=== PATIENT | female | born 1945 | race Two or more races ===

== ENCOUNTER 2016-04-07 23:47 | Inpatient (IN) | payer MEDICARE, MEDICAID ==
[~2016-04-07] VITALS: Ht 149.9 cm; Wt 65.1 kg
[~2016-04-07 23:47] MED LIST: FUROSEMIDE 40 MG/4 ML VIAL ONE
[2016-04-07] MEDS ORDERED: SODIUM BICARBONATE 8.4 % INJ 50ML VIAL IV ONE (23:50)
[2016-04-07] MEDS ORDERED: SODIUM BICARBONATE 8.4% INJ 50ML SYRINGE ONE (23:52)
[2016-04-08] MEDS ORDERED: FUROSEMIDE 40 MG/4 ML VIAL IV ONE (00:15)
[2016-04-08] MEDS ORDERED: methylPREDNISolone SOD SUCC 125 MG/2 ML VL IV ONE (00:15)
[2016-04-08] MEDS ORDERED: SODIUM BICARBONATE 8.4 % INJ 50ML VIAL IV ONE (00:15)
[2016-04-08 00:38] LABS: DEFINITIVE VIEW TRANSMISSION; Hematocrit 38.9 % (36.0-46.0); Hemoglobin 12.4 g/dL (12.2-16.2); Mean Corpuscular Hemoglobin 29.2 pg (28.0-32.0); Mean Corpuscular Hgb Conc. 31.9 g/dL (32.0-36.0); Mean Corpuscular Volume 91.6 fL (80.0-100.0); Mean Platelet Volume 9.4 fL (7.4-10.4); Platelet Count (auto) 266 10^3/uL (140-450); SUSPECT VIEW TRANSMISSION; White Blood Cell 9.6 10^3/uL (4.4-10.8)
[2016-04-08 00:42] LABS: Urine Bilirubin Negative (Negative); Urine Blood Negative /uL (Negative); Urine Color Colorless (Yellow); Urine Granular Cast FEW /lpf (0); Urine Ketone Negative (Negative); Urine Nitrite Negative (Negative); Urine RBC 1 /hpf (0 - 4); Urine Squamous Epithelial Cell FEW /hpf (<5); Urine Urobilinogen Normal (Negative)
[2016-04-08 00:47] LABS: Metamyelocytes % 0; Myelocytes % 0; Promyelocytes % 0; Reactive Lymphocytes 0
[2016-04-08 00:47] LABS: Urine Glucose 3+ mg/dL (Normal)
[2016-04-08 00:52] LABS: Albumin 3.4 g/dL (3.4-5.0); BUN/Creatinine Ratio 16.1; Calcium 7.8 mg/dL (8.5-10.1); Potassium 3.6 mmol/L (3.5-5.1)
[2016-04-08 00:56] LABS: Bilirubin, Total 0.2 mg/dL (0.2-1.0); Total Protein 7.6 g/dL (6.4-8.2)
[2016-04-08 01:08] LABS: B-Type Natriuretic Peptide 711.15 pg/mL (0-100)
[2016-04-08 01:09] LABS: Temperature: 22.7 C (20.0-25.0)
[2016-04-08 01:14] LABS: Platelet Estimate Adequate; RBC Morphology Normal
[2016-04-08] MEDS ORDERED: ATOR10TA PO (02:24)
[2016-04-08] MEDS ORDERED: METF-771 PO (02:24)
[2016-04-08] MEDS ORDERED: GLIM2TAB33 PO (02:25)
[2016-04-08] MEDS ORDERED: LISI10TA6 PO (02:30)
[2016-04-08] MEDS ORDERED: ASPI81CH43 PO (02:30)
[2016-04-08] MEDS ORDERED: ISOS10TA2 PO (02:30)
[2016-04-08] MEDS ORDERED: METO-158 PO (02:30)
[2016-04-08] MEDS ORDERED: HYDROcodone-ACET 5/325MG TAB PO PRN (07:30)
[2016-04-08] MEDS ORDERED: DEXTROSE (50%) 50ML SYRG IV PRN (07:30)
[2016-04-08] MEDS ORDERED: ACETAMINOPHEN 325 MG TAB PO PRN (07:30)
[2016-04-08] MEDS ORDERED: ONDANSETRON HCL 4 MG/2 ML VIAL IV PRN (07:30)
[2016-04-08 08:54] VITALS: BP 137/72
[2016-04-08] MEDS: GLIMEPIRIDE 2 MG TAB PO SCH (09:26)
[2016-04-08] MEDS: ASPirin 81 mg TAB PO SCH (09:53)
[2016-04-08] MEDS: ISOSORBIDE MONONITRATE 20 MG TAB PO SCH ×2 (09:55→21:43)
[2016-04-08] MEDS: FAMOTIDINE 20 MG TAB PO SCH ×2 (09:56→21:44)
[2016-04-08] MEDS: METOPROLOL SUCCINATE XL 50 MG TAB PO SCH (09:57)
[2016-04-08] MEDS: LISINOPRIL 10 MG TAB PO SCH (09:58)
[2016-04-08] MEDS: ENOXAPARIN SOD 40 MG/0.4 ML SYRINGE SC SCH (09:59)
[2016-04-08] MEDS ORDERED: FUROSEMIDE 20 MG TAB PO SCH (10:00)
[2016-04-08] MEDS: ACCU-CHEK COMFORT CURVE STRIP VI SCH ×3 (12:00→23:57)
[2016-04-08] MEDS: InsuLIN REG 1unit/0.01ml Soln (100units/ml) SC SCH ×3 (12:00→23:59)
[2016-04-08 16:43] VITALS: BP 127/63
[2016-04-08] MEDS: ATORVASTATIN 20 MG TAB PO SCH (21:44)
[2016-04-08 22:00] VITALS: BP 121/55
[2016-04-09 05:30] VITALS: BP 130/71
[2016-04-09] MEDS: InsuLIN REG 1unit/0.01ml Soln (100units/ml) SC SCH ×3 (06:00→18:00)
[2016-04-09] MEDS: ACCU-CHEK COMFORT CURVE STRIP VI SCH ×3 (06:20→18:00)
[2016-04-09 06:21] LABS: Basophils # (auto) 0 uL; Basophils % (auto) 0.3 % (0.0-2.0); Eosinophils # (auto) 0 uL; Eosinophils % (auto) 0.1 % (0.0-7.0); Hematocrit 32.9 % (36.0-46.0); Hemoglobin 10.6 g/dL (12.2-16.2); Lymphocytes # (auto) 2.5 uL; Lymphocytes % (auto) 17.9 % (10.0-50.0); Mean Corpuscular Hemoglobin 29.2 pg (28.0-32.0); Mean Corpuscular Hgb Conc. 32.2 g/dL (32.0-36.0); Mean Corpuscular Volume 90.6 fL (80.0-100.0); Mean Platelet Volume 8.9 fL (7.4-10.4); Monocytes # (auto) 0.9 uL; Monocytes % (auto) 6.1 % (0.0-12.0); Neutrophils # (auto) 10.5 uL; Neutrophils % (auto) 75.6 % (37.0-80.0); Platelet Count (auto) 246 10^3/uL (140-450); Red Cell Distribution Width 13.7 % (11.6-16.0); White Blood Cell 13.9 10^3/uL (4.4-10.8)
[2016-04-09 06:32] LABS: INR 1.11 (0.9-1.15); Prothrombin Time 11.4 sec (9.37-12.3)
[2016-04-09 06:40] LABS: Potassium 3.1 mmol/L (3.5-5.1)
[2016-04-09 06:45] LABS: Albumin 3.1 g/dL (3.4-5.0); BUN/Creatinine Ratio 29.1; Calcium 8.5 mg/dL (8.5-10.1)
[2016-04-09 06:48] LABS: Bilirubin, Total 0.3 mg/dL (0.2-1.0); Total Protein 6.7 g/dL (6.4-8.2)
[2016-04-09 08:53] VITALS: BP 117/55
[2016-04-09] MEDS: ENOXAPARIN SOD 40 MG/0.4 ML SYRINGE SC SCH (10:19)
[2016-04-09] MEDS: FUROSEMIDE 40 MG/4 ML VIAL IV SCH (10:20)
[2016-04-09] MEDS: FAMOTIDINE 20 MG TAB PO SCH ×2 (10:21→22:19)
[2016-04-09] MEDS: ASPirin 81 mg TAB PO SCH (10:21)
[2016-04-09] MEDS: GLIMEPIRIDE 2 MG TAB PO SCH (10:21)
[2016-04-09] MEDS: ISOSORBIDE MONONITRATE 20 MG TAB PO SCH ×2 (10:22→22:19)
[2016-04-09] MEDS: METOPROLOL SUCCINATE XL 50 MG TAB PO SCH (10:22)
[2016-04-09] MEDS: LISINOPRIL 10 MG TAB PO SCH (10:22)
[2016-04-09 11:54] VITALS: BP 107/58
[2016-04-09 16:31] VITALS: BP 126/60
[2016-04-09 21:30] VITALS: BP 116/56
[2016-04-09] MEDS: ATORVASTATIN 20 MG TAB PO SCH (22:19)
[2016-04-10] MEDS: InsuLIN REG 1unit/0.01ml Soln (100units/ml) SC SCH ×3 (00:14→11:47)
[2016-04-10] MEDS: ACCU-CHEK COMFORT CURVE STRIP VI SCH ×3 (00:16→11:43)
[2016-04-10 05:39] VITALS: BP 118/62
[2016-04-10 06:13] LABS: Basophils # (auto) 0.1 uL; Basophils % (auto) 0.7 % (0.0-2.0); Eosinophils # (auto) 0.2 uL; Eosinophils % (auto) 1.9 % (0.0-7.0); Hematocrit 33.4 % (36.0-46.0); Hemoglobin 10.9 g/dL (12.2-16.2); Lymphocytes # (auto) 3.3 uL; Mean Corpuscular Hemoglobin 29.4 pg (28.0-32.0); Mean Corpuscular Hgb Conc. 32.7 g/dL (32.0-36.0); Mean Corpuscular Volume 89.8 fL (80.0-100.0); Mean Platelet Volume 8.4 fL (7.4-10.4); Monocytes # (auto) 0.7 uL; Neutrophils # (auto) 3.6 uL; Neutrophils % (auto) 46.4 % (37.0-80.0); Platelet Count (auto) 249 10^3/uL (140-450); Red Cell Distribution Width 13.6 % (11.6-16.0); White Blood Cell 7.9 10^3/uL (4.4-10.8)
[2016-04-10 06:28] LABS: INR 1.12 (0.9-1.15); Prothrombin Time 11.5 sec (9.37-12.3)
[2016-04-10 06:42] LABS: Calcium 8.5 mg/dL (8.5-10.1); Magnesium 2.1 mg/dL (1.6-2.6); Potassium 3.3 mmol/L (3.5-5.1)
[2016-04-10 06:44] LABS: BUN/Creatinine Ratio 32.6
[2016-04-10 08:30] VITALS: BP 119/56
[2016-04-10] MEDS: ASPirin 81 mg TAB PO SCH (08:51)
[2016-04-10] MEDS: GLIMEPIRIDE 2 MG TAB PO SCH (08:52)
[2016-04-10] MEDS: FAMOTIDINE 20 MG TAB PO SCH (08:53)
[2016-04-10] MEDS: LISINOPRIL 10 MG TAB PO SCH (08:53)
[2016-04-10] MEDS: ISOSORBIDE MONONITRATE 20 MG TAB PO SCH (08:53)
[2016-04-10] MEDS: METOPROLOL SUCCINATE XL 50 MG TAB PO SCH (08:54)
[2016-04-10] MEDS: ENOXAPARIN SOD 40 MG/0.4 ML SYRINGE SC SCH (08:56)
[2016-04-10] MEDS: FUROSEMIDE 40 MG/4 ML VIAL IV SCH (08:56)
[2016-04-10 13:30] VITALS: BP 112/60
[2016-04-10 14:00] VITALS: BP 112/60
[2016-04-10 16:30] VITALS: BP 126/68
== END 2016-04-10 17:50 | disposition home health service (06) | DRG 291 ==
LOC: EDBD 23:47 → ER 23:52 → OVERFLOW 23:53 → EAST 04-08 09:14 → WEST WING 04-08 13:30
PROVIDERS: ADMIT Internal Medicine; ATTEND Internal Medicine
PROC: 5A09357 Assistance with Respiratory Ventilation, Less than 24 Consecutive Hours, Continuous Positive Airway Pressure (ICD-10-PCS; principal; 2016-04-08)
DX: I11.0 Hypertensive heart disease with heart failure (principal); J96.00 Acute respiratory failure, unspecified whether with hypoxia or hypercapnia; I50.21 Acute systolic (congestive) heart failure; E11.65 Type 2 diabetes mellitus with hyperglycemia; I42.9 Cardiomyopathy, unspecified; E78.5 Hyperlipidemia, unspecified; Z79.82 Long term (current) use of aspirin; Z79.899 Other long term (current) drug therapy
CPT/HCPCS: 36415; 36600; 71010; 80048; 80053; 81001; 82805; 82962; 83036; 83735; 83880; 84484; 85007; 85025; 85027; 85610; 93005; 93306; 94660; 96374; 96375; J1815

== ENCOUNTER 2016-06-02 14:50 | Emergency (ER) | payer MEDICARE, MEDICAID ==
[~2016-06-02] VITALS: Ht 149.9 cm; Wt 63.0 kg
[~2016-06-02 14:50] MED LIST changes: +ASPI81CH43 PO; +ATOR10TA PO; -FUROSEMIDE 40 MG/4 ML VIAL ONE; +GLIM2TAB33 PO; +ISOS10TA2 PO; +LISI10TA6 PO; +METF-771 PO; +METO-158 PO
[2016-06-02 15:36] LABS: Basophils # (auto) 0 uL; Basophils % (auto) 0.6 % (0.0-2.0); Eosinophils # (auto) 0.1 uL; Eosinophils % (auto) 1.7 % (0.0-7.0); Hematocrit 35.8 % (36.0-46.0); Lymphocytes # (auto) 2.2 uL; Lymphocytes % (auto) 29.8 % (10.0-50.0); Mean Corpuscular Hemoglobin 29.8 pg (28.0-32.0); Mean Corpuscular Hgb Conc. 33.6 g/dL (32.0-36.0); Mean Corpuscular Volume 88.7 fL (80.0-100.0); Mean Platelet Volume 8.2 fL (7.4-10.4); Monocytes # (auto) 0.5 uL; Monocytes % (auto) 6.4 % (0.0-12.0); Neutrophils # (auto) 4.6 uL; Neutrophils % (auto) 61.5 % (37.0-80.0); Platelet Count (auto) 278 10^3/uL (140-450); Red Cell Distribution Width 13.8 % (11.6-16.0); White Blood Cell 7.5 10^3/uL (4.4-10.8)
[2016-06-02 15:58] LABS: Albumin 3.7 g/dL (3.4-5.0); Alkaline Phosphatase 94 U/L (45-117); Anion Gap 11 (5-15); Aspartate Aminotransferase 12 U/L (15-37); BUN/Creatinine Ratio 19.1; Bilirubin, Total 0.3 mg/dL (0.2-1.0); Blood Urea Nitrogen 26 mg/dL (7-18); Carbon Dioxide 28 mmol/L (21-32); Chloride 105 mmol/L (98-107); GFR African American 50 mL/min; GFR Non-African American 41 mL/min; Glucose 264 mg/dL (74-106); Potassium 3.6 mmol/L (3.5-5.1); Sodium 144 mmol/L (136-145); Total Protein 7.9 g/dL (6.4-8.2)
[2016-06-02] MEDS ORDERED: InsuLIN REG 1unit/0.01ml Soln (100units/ml) IV ONE (16:30)
[2016-06-02 17:40] VITALS: BP 123/52
[2016-06-02 17:51] LABS: Urine Bilirubin Negative (Negative); Urine Blood Negative /uL (Negative); Urine Color Yellow (Yellow); Urine Glucose TRACE mg/dL (Normal); Urine Ketone Negative (Negative); Urine Nitrite Negative (Negative); Urine RBC 2 /hpf (0 - 4); Urine Squamous Epithelial Cell FEW /hpf (<5); Urine Urobilinogen Normal (Negative)
== END 2016-06-02 17:43 | disposition home or self-care (01) ==
LOC: ER 14:50
DX: S29.011A Strain of muscle and tendon of front wall of thorax, initial encounter (principal); E11.9 Type 2 diabetes mellitus without complications; E78.5 Hyperlipidemia, unspecified; I10 Essential (primary) hypertension; X58.XXXA Exposure to other specified factors, initial encounter; Y93.89 Activity, other specified; Y92.89 Other specified places as the place of occurrence of the external cause; Y99.8 Other external cause status; Z79.82 Long term (current) use of aspirin; Z79.899 Other long term (current) drug therapy
CPT/HCPCS: 36415; 71111; 80053; 81001; 82962; 84484; 85025; 93005

== ENCOUNTER → 2016-07-01 | Outpatient (CLI) | payer MEDICARE, MEDICAID ==
[~2016-07-01] VITALS: Ht 149.9 cm; Wt 63.0 kg
[~2016-07-01] MED LIST changes: +ACAR100T2 PO; +ATO40T PO; +CLOP75TA28 PO; +FURO40TA PO; +ISOS30TA4 PO; +METO25TA5 PO; +RANO500T2 PO
[2016-07-01 09:50] VITALS: BP 121/59
[2016-07-01 10:30] VITALS: BP 122/54
[2016-07-01 16:53] LABS: Basophils # (auto) 0.1 uL; Basophils % (auto) 0.7 % (0.0-2.0); Eosinophils # (auto) 0.1 uL; Hematocrit 32.6 % (36.0-46.0); Lymphocytes # (auto) 2.5 uL; Lymphocytes % (auto) 34.2 % (10.0-50.0); Mean Corpuscular Hemoglobin 30.4 pg (28.0-32.0); Mean Corpuscular Hgb Conc. 33.8 g/dL (32.0-36.0); Mean Platelet Volume 8.6 fL (7.4-10.4); Monocytes # (auto) 0.5 uL; Monocytes % (auto) 7.5 % (0.0-12.0); Neutrophils # (auto) 4.1 uL; Neutrophils % (auto) 55.6 % (37.0-80.0); Platelet Count (auto) 292 10^3/uL (140-450); Red Cell Distribution Width 14.9 % (11.6-16.0); White Blood Cell 7.3 10^3/uL (4.4-10.8)
[2016-07-01 16:59] LABS: BUN/Creatinine Ratio 21.3; Calcium 9.1 mg/dL (8.5-10.1); Potassium 4.5 mmol/L (3.5-5.1)
[2016-07-01 17:45] LABS: INR 1.01 (0.9-1.15); Partial Thromboplastin Time 28.1 sec (22.64-33.71); Prothrombin Time 10.9 sec (9.37-12.3)
== END | disposition home or self-care (01) ==
LOC: Rad HDHVI 09:29
PROVIDERS: ATTEND Internal Medicine Cardiovascular Disease
DX: I10 Essential (primary) hypertension (principal); D64.9 Anemia, unspecified; R79.1 Abnormal coagulation profile; Z01.812 Encounter for preprocedural laboratory examination
CPT/HCPCS: 36415; 71020; 80048; 85025; 85610; 85730; 93005; G0463

== ENCOUNTER → 2016-08-06 | Outpatient (CLI) | payer MEDICARE, MEDICAID ==
[~2016-08-06] MED LIST changes: -ATOR10TA PO; +BEN10T PO; +CEPH250C PO; -ISOS10TA2 PO; -METO-158 PO; -METO25TA5 PO; +METO25TA62 PO
== END | disposition home or self-care (01) ==
LOC: Rad HDHVI 13:00
PROVIDERS: ATTEND Internal Medicine Cardiovascular Disease
DX: I11.0 Hypertensive heart disease with heart failure (principal); I50.9 Heart failure, unspecified; I25.10 Atherosclerotic heart disease of native coronary artery without angina pectoris; E78.5 Hyperlipidemia, unspecified; R42 Dizziness and giddiness; Z95.810 Presence of automatic (implantable) cardiac defibrillator; Z95.5 Presence of coronary angioplasty implant and graft; Z86.73 Personal history of transient ischemic attack (TIA), and cerebral infarction without residual deficits
CPT/HCPCS: 93306

== ENCOUNTER → 2016-08-10 | Outpatient (CLI) | payer MEDICARE, MEDICAID ==
[2016-08-10 12:28] LABS: Basophils # (auto) 0 uL; Basophils % (auto) 0.5 % (0.0-2.0); Eosinophils # (auto) 0.2 uL; Hematocrit 32.5 % (36.0-46.0); Hemoglobin 10.6 g/dL (12.2-16.2); Lymphocytes # (auto) 2.1 uL; Mean Corpuscular Hemoglobin 30.2 pg (28.0-32.0); Mean Corpuscular Hgb Conc. 32.6 g/dL (32.0-36.0); Mean Corpuscular Volume 92.7 fL (80.0-100.0); Mean Platelet Volume 7.7 fL (7.4-10.4); Monocytes # (auto) 0.4 uL; Monocytes % (auto) 4.7 % (0.0-12.0); Neutrophils # (auto) 4.9 uL; Neutrophils % (auto) 63.8 % (37.0-80.0); Platelet Count (auto) 369 10^3/uL (140-450); Red Cell Distribution Width 14.3 % (11.6-16.0); White Blood Cell 7.7 10^3/uL (4.4-10.8)
[2016-08-10 12:36] LABS: Urine Bilirubin Negative (Negative); Urine Blood Negative /uL (Negative); Urine Color Yellow (Yellow); Urine Glucose Normal (Normal); Urine Ketone Negative (Negative); Urine Nitrite Negative (Negative); Urine Urobilinogen Normal (Negative)
[2016-08-10 13:51] LABS: Albumin 3.9 g/dL (3.4-5.0); Alkaline Phosphatase 88 U/L (45-117); Anion Gap 10 (5-15); Aspartate Aminotransferase 13 U/L (15-37); Bilirubin, Direct < 0.1 mg/dL (0-0.2); Bilirubin, Total 0.3 mg/dL (0.2-1.0); Blood Urea Nitrogen 37 mg/dL (7-18); Carbon Dioxide 27 mmol/L (21-32); Chloride 109 mmol/L (98-107); Cholesterol 183 mg/dL (< 200); GFR African American 51 mL/min; GFR Non-African American 42 mL/min; Glucose 113 mg/dL (74-106); HDL Cholesterol 43 mg/dL (40-59); LDL Cholesterol 123 mg/dL (< 100); Potassium 4.7 mmol/L (3.5-5.1); Sodium 146 mmol/L (136-145); Total Protein 8.2 g/dL (6.4-8.2); Triglycerides 180 mg/dL (< 150)
== END | disposition home or self-care (01) ==
LOC: LAB 09:21
PROVIDERS: ATTEND Internal Medicine Cardiovascular Disease
DX: I10 Essential (primary) hypertension (principal); E78.00 Pure hypercholesterolemia, unspecified; K74.1 Hepatic sclerosis; E11.9 Type 2 diabetes mellitus without complications; E03.9 Hypothyroidism, unspecified; D64.9 Anemia, unspecified; E55.9 Vitamin D deficiency, unspecified; N39.0 Urinary tract infection, site not specified
CPT/HCPCS: 36415; 80048; 80061; 80076; 81003; 82306; 83036; 84443; 85025

== ENCOUNTER → 2016-08-21 | Outpatient (CLI) | payer MEDICARE, MEDICAID | END | disposition home or self-care (01) | LOC: Rad HDHVI 13:39 | PROVIDERS: ATTEND Internal Medicine Cardiovascular Disease | DX: J32.9 Chronic sinusitis, unspecified (principal) | CPT/HCPCS: 70220 ==

== ENCOUNTER → 2016-10-09 | Outpatient (CLI) | payer MEDICARE, MEDICAID | END | disposition home or self-care (01) | LOC: Rad HDHVI 09:21 | PROVIDERS: ATTEND Internal Medicine Cardiovascular Disease | DX: M25.512 Pain in left shoulder (principal) | CPT/HCPCS: 73030 ==

== ENCOUNTER → 2016-10-28 | Outpatient (CLI) | payer MEDICARE, MEDICAID | END | disposition home or self-care (01) | LOC: Rad HDHVI 15:43 | PROVIDERS: ATTEND Internal Medicine Cardiovascular Disease | DX: I25.5 Ischemic cardiomyopathy (principal); E78.4 Other hyperlipidemia | CPT/HCPCS: 93306 ==

== ENCOUNTER → 2016-10-30 | Outpatient (CLI) | payer MEDICARE, MEDICAID ==
[~2016-10-30] VITALS: Ht 149.9 cm; Wt 59.0 kg
[~2016-10-30] MED LIST changes: +ADENOSINE 50 MG in GIVE UN-DILUTED 0 ML IV ONE; +ADENOSINE 90 MG/30 ML INJ IV ONE
== END | disposition home or self-care (01) ==
LOC: Rad HDHVI 10:14
PROVIDERS: ATTEND Internal Medicine Cardiovascular Disease
DX: I10 Essential (primary) hypertension (principal); E78.00 Pure hypercholesterolemia, unspecified; E11.9 Type 2 diabetes mellitus without complications; Z95.0 Presence of cardiac pacemaker
CPT/HCPCS: 78452; 93005; 96374; 96375; A9500; J0153

== ENCOUNTER 2017-03-11 15:36 | Emergency (ER) | payer MEDICAID, MEDICARE, OTHER ==
[~2017-03-11] VITALS: Ht 149.9 cm; Wt 59.0 kg
[~2017-03-11 15:36] MED LIST changes: -ADENOSINE 50 MG in GIVE UN-DILUTED 0 ML IV ONE; -ADENOSINE 90 MG/30 ML INJ IV ONE
[2017-03-11 16:09] VITALS: BP 124/70
[2017-03-11] MEDS ORDERED: ACETAMINOPHEN 325 MG TAB PO ONE (17:00)
== END 2017-03-11 17:41 | disposition home or self-care (01) ==
LOC: ER 15:38
DX: S29.011A Strain of muscle and tendon of front wall of thorax, initial encounter (principal); S00.81XA Abrasion of other part of head, initial encounter; E11.9 Type 2 diabetes mellitus without complications; I10 Essential (primary) hypertension; E78.5 Hyperlipidemia, unspecified; Z79.82 Long term (current) use of aspirin; Z86.73 Personal history of transient ischemic attack (TIA), and cerebral infarction without residual deficits; Z95.0 Presence of cardiac pacemaker; W22.8XXA Striking against or struck by other objects, initial encounter; Y93.89 Activity, other specified; Y92.89 Other specified places as the place of occurrence of the external cause; Y99.8 Other external cause status
CPT/HCPCS: 71020; 93005

== ENCOUNTER 2017-08-14 07:29 | Inpatient (IN) | payer OTHER, MEDICAID ==
[~2017-08-14] VITALS: Ht 149.9 cm; Wt 54.9 kg
[2017-08-14 08:13] LABS: Basophils # (auto) 0.1 uL; Basophils % (auto) 0.6 % (0.0-2.0); Eosinophils # (auto) 0.1 uL; Eosinophils % (auto) 1.3 % (0.0-7.0); Hematocrit 37.5 % (36.0-46.0); Hemoglobin 12.2 g/dL (12.2-16.2); Lymphocytes % (auto) 17.2 % (10.0-50.0); Mean Corpuscular Hemoglobin 29.2 pg (28.0-32.0); Mean Corpuscular Hgb Conc. 32.4 g/dL (32.0-36.0); Monocytes # (auto) 0.8 uL; Monocytes % (auto) 6.8 % (0.0-12.0); Neutrophils # (auto) 8.6 uL; Neutrophils % (auto) 74.1 % (37.0-80.0); Platelet Count (auto) 264 10^3/uL (140-450); Red Blood Cells 4.16 10^6/uL (4.0-5.20); Red Cell Distribution Width 13.9 % (11.8-14.3); White Blood Cell 11.7 10^3/uL (4.4-10.8)
[2017-08-14 08:27] LABS: Urine Bacteria FEW /hpf (None Seen); Urine Blood 3+ /uL (Negative); Urine Mucus FEW (None Seen); Urine Specific Gravity 1.014 (1.001-1.035); Urine WBC 12 /hpf (0 - 5)
[2017-08-14 08:32] LABS: Albumin 3.6 g/dL (3.4-5.0); BUN/Creatinine Ratio 23.6; Calcium 8.9 mg/dL (8.5-10.1); Potassium 4.4 mmol/L (3.5-5.1)
[2017-08-14 08:35] LABS: Bilirubin, Total 0.2 mg/dL (0.2-1.0); Total Protein 8.1 g/dL (6.4-8.2)
[2017-08-14] MEDS ORDERED: ONDANSETRON HCL 4 MG/2 ML VIAL IV PRN (09:30)
[2017-08-14] MEDS ORDERED: MORPHINE SULFATE 4 MG/ML SYR/VIAL IV PRN ×2 (09:30)
[2017-08-14] MEDS ORDERED: DEXTROSE (50%) 50ML SYRG IV PRN (09:30)
[2017-08-14] MEDS ORDERED: GLIMEPIRIDE 2 MG TAB PO ONE (09:30)
[2017-08-14] MEDS ORDERED: DOCUSATE SOD 100 MG CAP PO PRN (09:30)
[2017-08-14] MEDS ORDERED: HYDROcodone-ACET 5/325MG TAB PO PRN (09:30)
[2017-08-14] MEDS ORDERED: TEMAZEPAM 15 MG CAP PO PRN (09:30)
[2017-08-14] MEDS ORDERED: NITROGLYCERIN 0.4 MG SL TAB SL PRN (09:30)
[2017-08-14] MEDS ORDERED: ACETAMINOPHEN 325 MG TAB PO PRN (09:30)
[2017-08-14] MEDS ORDERED: cefTRIAXone 1GM/10ml IVPUSH 10 ML IV ONE (09:30)
[2017-08-14] MEDS: ASPirin-EC 81 mg tab PO SCH (09:44)
[2017-08-14] MEDS: ISOSORBIDE MONONITRATE 60 MG TAB PO SCH (09:44)
[2017-08-14] MEDS ORDERED: VANCOMYCIN PER PHARMACY 0 MG IV SCH (09:45)
[2017-08-14] MEDS: METOPROLOL SUCCINATE XL 50 MG TAB PO SCH (09:45)
[2017-08-14] MEDS: FUROSEMIDE 40 MG TAB PO SCH (09:45)
[2017-08-14] MEDS: LISINOPRIL 10 MG TAB PO SCH (09:45)
[2017-08-14] MEDS: CLOPIDOGREL BISULFATE 75 MG TAB PO SCH (09:45)
[2017-08-14] MEDS: FAMOTIDINE 20 MG TAB PO SCH ×2 (10:00→21:48)
[2017-08-14] MEDS: SODIUM CHLORIDE 0.9% 1,000 ML IV SCH (10:00)
[2017-08-14] MEDS ORDERED: VANCOMYCIN 1GM/250ML 250 ML IV SCH (11:00)
[2017-08-14] MEDS: InsuLIN REG 1unit/0.01ml Soln (100units/ml) SC SCH ×3 (11:30→21:48)
[2017-08-14] MEDS: ACCU-CHEK COMFORT CURVE STRIP VI SCH ×3 (11:44→21:48)
[2017-08-14 12:00] VITALS: BP 149/80
[2017-08-14] MEDS ORDERED: POM PO (12:07)
[2017-08-14 14:13] LABS: Lactic Acid w/Reflex 3.2 mmol/L (0.4-2.0)
[2017-08-14 17:00] VITALS: BP 127/66
[2017-08-14] MEDS: ACARBOSE 100 MG PO SCH (17:55)
[2017-08-14 20:00] VITALS: BP 115/58
[2017-08-14] MEDS: ATORVASTATIN 20 MG TAB PO SCH (21:48)
[2017-08-14 22:19] VITALS: BP 115/58
[2017-08-15] VITALS (7 sets, daily range): BP systolic 129–155; BP diastolic 64–100
[2017-08-15] MEDS: SODIUM CHLORIDE 0.9% 1,000 ML IV SCH ×3 (02:57→22:50)
[2017-08-15 05:58] LABS: Basophils # (auto) 0.1 uL; Basophils % (auto) 1.1 % (0.0-2.0); Eosinophils # (auto) 0.2 uL; Eosinophils % (auto) 2.9 % (0.0-7.0); Lymphocytes # (auto) 2.1 uL; Lymphocytes % (auto) 30.6 % (10.0-50.0); Mean Corpuscular Hemoglobin 29.9 pg (28.0-32.0); Mean Corpuscular Hgb Conc. 33.2 g/dL (32.0-36.0); Mean Corpuscular Volume 89.9 fL (80.0-100.0); Monocytes # (auto) 0.7 uL; Monocytes % (auto) 9.6 % (0.0-12.0); Neutrophils # (auto) 3.8 uL; Neutrophils % (auto) 55.8 % (37.0-80.0); Nucleated Red Blood Cells % 0.1 %; Platelet Count (auto) 248 10^3/uL (140-450); Red Blood Cells 3.67 10^6/uL (4.0-5.20); Red Cell Distribution Width 13.7 % (11.8-14.3); White Blood Cell 6.8 10^3/uL (4.4-10.8)
[2017-08-15 06:25] LABS: Albumin 3.4 g/dL (3.4-5.0); Bilirubin, Total 0.3 mg/dL (0.2-1.0); Calcium 8.6 mg/dL (8.5-10.1); Potassium 3.3 mmol/L (3.5-5.1)
[2017-08-15] MEDS: InsuLIN REG 1unit/0.01ml Soln (100units/ml) SC SCH ×4 (06:55→21:53)
[2017-08-15] MEDS: ACCU-CHEK COMFORT CURVE STRIP VI SCH ×4 (06:55→21:53)
[2017-08-15] MEDS ORDERED: GLIMEPIRIDE 2 MG TAB PO SCH (07:00)
[2017-08-15] MEDS: ACARBOSE 100 MG PO SCH ×2 (08:27→18:51)
[2017-08-15] MEDS: ASPirin-EC 81 mg tab PO SCH (10:25)
[2017-08-15] MEDS: cefTRIAXone 1GM/10ml IVPUSH 10 ML IV SCH (10:25)
[2017-08-15] MEDS: FUROSEMIDE 40 MG TAB PO SCH (10:26)
[2017-08-15] MEDS: MULTIPLE VITAMIN TAB PO SCH (10:26)
[2017-08-15] MEDS: ISOSORBIDE MONONITRATE 60 MG TAB PO SCH (10:26)
[2017-08-15] MEDS: FAMOTIDINE 20 MG TAB PO SCH ×2 (10:26→21:52)
[2017-08-15] MEDS: METOPROLOL SUCCINATE XL 50 MG TAB PO SCH (10:27)
[2017-08-15] MEDS: CLOPIDOGREL BISULFATE 75 MG TAB PO SCH (10:27)
[2017-08-15] MEDS: LISINOPRIL 10 MG TAB PO SCH (10:28)
[2017-08-15] MEDS ORDERED: POTASSIUM CHL 20 Meq TABLET PO ONE (11:00)
[2017-08-15] MEDS ORDERED: MANNITOL 20% SOLN 100 gm/500ml 200 ML IV ONE (11:00)
[2017-08-15] MEDS: ATORVASTATIN 20 MG TAB PO SCH (21:53)
[2017-08-16] MEDS ORDERED: MANNITOL 20 % (20GM/100ML) 500 ML IV ONE (00:23)
[2017-08-16 05:23] VITALS: BP 131/65
[2017-08-16 05:48] LABS: Basophils # (auto) 0.1 uL; Basophils % (auto) 1.1 % (0.0-2.0); Eosinophils # (auto) 0.2 uL; Eosinophils % (auto) 3.1 % (0.0-7.0); Hematocrit 34.1 % (36.0-46.0); Hemoglobin 11.4 g/dL (12.2-16.2); Lymphocytes # (auto) 2.2 uL; Lymphocytes % (auto) 33.9 % (10.0-50.0); Mean Corpuscular Hemoglobin 30.1 pg (28.0-32.0); Mean Corpuscular Hgb Conc. 33.4 g/dL (32.0-36.0); Monocytes # (auto) 0.6 uL; Monocytes % (auto) 9.4 % (0.0-12.0); Neutrophils # (auto) 3.4 uL; Neutrophils % (auto) 52.5 % (37.0-80.0); Nucleated Red Blood Cells % 0.1 %; Platelet Count (auto) 240 10^3/uL (140-450); Red Blood Cells 3.78 10^6/uL (4.0-5.20); Red Cell Distribution Width 13.8 % (11.8-14.3); White Blood Cell 6.5 10^3/uL (4.4-10.8)
[2017-08-16 05:56] LABS: BUN/Creatinine Ratio 26.3; Calcium 8.6 mg/dL (8.5-10.1); Magnesium 1.9 mg/dL (1.6-2.6); Potassium 3.7 mmol/L (3.5-5.1)
[2017-08-16] MEDS: ACCU-CHEK COMFORT CURVE STRIP VI SCH ×4 (06:50→22:00)
[2017-08-16] MEDS: InsuLIN REG 1unit/0.01ml Soln (100units/ml) SC SCH ×4 (06:50→23:03)
[2017-08-16 07:58] VITALS: BP 140/61
[2017-08-16] MEDS: ACARBOSE 100 MG PO SCH ×2 (08:00→18:00)
[2017-08-16] MEDS: SODIUM CHLORIDE 0.9% 1,000 ML IV SCH ×2 (09:20→17:05)
[2017-08-16] MEDS: FAMOTIDINE 20 MG TAB PO SCH ×2 (10:38→23:03)
[2017-08-16] MEDS: MULTIPLE VITAMIN TAB PO SCH (10:38)
[2017-08-16] MEDS: ISOSORBIDE MONONITRATE 60 MG TAB PO SCH (10:39)
[2017-08-16] MEDS: METOPROLOL SUCCINATE XL 50 MG TAB PO SCH (10:41)
[2017-08-16] MEDS: FUROSEMIDE 40 MG TAB PO SCH (10:41)
[2017-08-16] MEDS: LISINOPRIL 10 MG TAB PO SCH (10:41)
[2017-08-16] MEDS: cefTRIAXone 1GM/10ml IVPUSH 10 ML IV SCH (10:42)
[2017-08-16 10:53] LABS: INR 1.05 (0.9-1.15); Partial Thromboplastin Time 26.1 sec (22.64-33.71); Prothrombin Time 11.4 sec (9.37-12.3)
[2017-08-16 12:09] VITALS: BP 145/69
[2017-08-16 16:33] VITALS: BP 121/70
[2017-08-16] MEDS ORDERED: ceFAZolin 1GM/100ML 100 ML IV ONE (17:06)
[2017-08-16] MEDS ORDERED: IOHEXOL 180 MG/ML 20ML VIAL IJ ONE (17:50)
[2017-08-16] MEDS ORDERED: ETOMIDATE (2MG/ML) 20ML VIAL IV ONE (18:31)
[2017-08-16] MEDS ORDERED: MIDAZOLAM HCL 1MG/1ML-2 ML VIAL ONE (18:31)
[2017-08-16] MEDS ORDERED: fentaNYL CITRATE 100 MCG/2 ML VL ONE (18:31)
[2017-08-16] MEDS ORDERED: MANNITOL 20 % (20GM/100ML) 62.5 ML IV ONE ×2 (18:45)
[2017-08-16] MEDS ORDERED: ePHEDrine SULFATE 50 MG/ML AMP IV PRN (19:30)
[2017-08-16] MEDS ORDERED: hydrALAZINE HCL 20 MG/ML VL IV PRN (19:30)
[2017-08-16] MEDS ORDERED: ONDANSETRON HCL 4 MG/2 ML VIAL IV ONE (19:30)
[2017-08-16] MEDS ORDERED: fentaNYL CITRATE 100 MCG/2 ML VL IV ONE (20:00)
[2017-08-16 22:14] VITALS: BP 121/70
[2017-08-16] MEDS: ATORVASTATIN 20 MG TAB PO SCH (23:03)
[2017-08-17] MEDS: SODIUM CHLORIDE 0.9% 1,000 ML IV SCH (03:00)
[2017-08-17 05:51] LABS: Basophils # (auto) 0.1 uL; Basophils % (auto) 0.8 % (0.0-2.0); Eosinophils # (auto) 0.1 uL; Hematocrit 33.9 % (36.0-46.0); Hemoglobin 11.3 g/dL (12.2-16.2); Lymphocytes % (auto) 28.9 % (10.0-50.0); Mean Corpuscular Hemoglobin 29.8 pg (28.0-32.0); Mean Corpuscular Hgb Conc. 33.2 g/dL (32.0-36.0); Mean Corpuscular Volume 89.7 fL (80.0-100.0); Monocytes # (auto) 0.7 uL; Monocytes % (auto) 9.5 % (0.0-12.0); Neutrophils % (auto) 58.8 % (37.0-80.0); Nucleated Red Blood Cells % 0.1 %; Platelet Count (auto) 238 10^3/uL (140-450); Red Blood Cells 3.78 10^6/uL (4.0-5.20); Red Cell Distribution Width 13.7 % (11.8-14.3); White Blood Cell 6.9 10^3/uL (4.4-10.8)
[2017-08-17 06:11] VITALS: BP 127/71
[2017-08-17] MEDS: ACCU-CHEK COMFORT CURVE STRIP VI SCH (06:30)
[2017-08-17] MEDS: InsuLIN REG 1unit/0.01ml Soln (100units/ml) SC SCH (06:31)
[2017-08-17 08:17] VITALS: BP 124/60
[2017-08-17] MEDS ORDERED: NITR-52 PO (08:25)
[2017-08-17] MEDS ORDERED: IBUP800T24 PO (08:25)
[2017-08-17] MEDS: ACARBOSE 100 MG PO SCH (09:03)
[2017-08-17] MEDS: FAMOTIDINE 20 MG TAB PO SCH (09:03)
[2017-08-17] MEDS: MULTIPLE VITAMIN TAB PO SCH (09:03)
[2017-08-17] MEDS: LISINOPRIL 10 MG TAB PO SCH (09:04)
[2017-08-17] MEDS: ISOSORBIDE MONONITRATE 60 MG TAB PO SCH (09:04)
[2017-08-17] MEDS: FUROSEMIDE 40 MG TAB PO SCH (09:04)
[2017-08-17] MEDS: METOPROLOL SUCCINATE XL 50 MG TAB PO SCH (09:05)
[2017-08-17] MEDS: cefTRIAXone 1GM/10ml IVPUSH 10 ML IV SCH (09:05)
[2017-08-17 10:22] VITALS: BP 124/60
[2017-08-17] MEDS ORDERED: TAMSULOSIN HYDROCHLORIDE 0.4 MG CAP PO SCH (18:00)
== END 2017-08-17 11:25 | disposition home or self-care (01) | DRG 872 ==
LOC: ER 07:31 → TELE 07:32 → TELE-CENTR 10:17
PROVIDERS: ADMIT Internal Medicine; ATTEND Hospitalist
PROC: 0TF6XZZ Fragmentation in Right Ureter, External Approach (ICD-10-PCS; principal; 2017-08-16 18:25)
DX: A41.9 Sepsis, unspecified organism (principal); E11.21 Type 2 diabetes mellitus with diabetic nephropathy; I50.42 Chronic combined systolic (congestive) and diastolic (congestive) heart failure; I13.0 Hypertensive heart and chronic kidney disease with heart failure and stage 1 through stage 4 chronic kidney disease, or unspecified chronic kidney disease; N39.0 Urinary tract infection, site not specified; N13.2 Hydronephrosis with renal and ureteral calculous obstruction; N13.0 Hydronephrosis with ureteropelvic junction obstruction; N18.3 Chronic kidney disease, stage 3 (moderate); E11.22 Type 2 diabetes mellitus with diabetic chronic kidney disease; I25.5 Ischemic cardiomyopathy; D63.8 Anemia in other chronic diseases classified elsewhere; B96.20 Unspecified Escherichia coli [E. coli] as the cause of diseases classified elsewhere; E78.5 Hyperlipidemia, unspecified; I25.10 Atherosclerotic heart disease of native coronary artery without angina pectoris; I25.2 Old myocardial infarction; Z95.5 Presence of coronary angioplasty implant and graft; Z95.810 Presence of automatic (implantable) cardiac defibrillator; Z86.73 Personal history of transient ischemic attack (TIA), and cerebral infarction without residual deficits; Z83.3 Family history of diabetes mellitus; Z82.49 Family history of ischemic heart disease and other diseases of the circulatory system; Z79.899 Other long term (current) drug therapy; Z90.49 Acquired absence of other specified parts of digestive tract
CPT/HCPCS: 36415; 74018; 74176; 80048; 80053; 81001; 82962; 83036; 83605; 83690; 83735; 85025; 85610; 85730; 87040; 87086; 87088; 87186; 93005; 93306; 94761; 96361; 96365; 96375; J0690; J1815; J2250; Q9965

== ENCOUNTER 2017-12-11 15:04 | Inpatient (IN) | payer OTHER, MEDICAID ==
[~2017-12-11] VITALS: Ht 132.1 cm; Wt 61.8 kg
[~2017-12-11 15:04] MED LIST changes: +ACAR100T PO; -ACAR100T2 PO; -BEN10T PO; -CEPH250C PO; +IBUP800T24 PO; +NITR-52 PO; +POM PO; -RANO500T2 PO
[2017-12-11 15:49] LABS: Urine Bacteria MOD /hpf (None Seen); Urine Blood 3+ /uL (Negative); Urine Budding Yeast FEW /hpf (None Seen); Urine WBC 18 /hpf (0 - 5)
[2017-12-11 16:10] LABS: Basophils # (auto) 0.1 uL; Basophils % (auto) 0.8 % (0.0-2.0); Eosinophils # (auto) 0.1 uL; Eosinophils % (auto) 1.1 % (0.0-7.0); Hematocrit 34.7 % (36.0-46.0); Hemoglobin 11.6 g/dL (12.2-16.2); Lymphocytes # (auto) 1.7 uL; Mean Corpuscular Hemoglobin 30.5 pg (28.0-32.0); Mean Corpuscular Hgb Conc. 33.3 g/dL (32.0-36.0); Mean Corpuscular Volume 91.5 fL (80.0-100.0); Monocytes # (auto) 0.7 uL; Monocytes % (auto) 7.6 % (0.0-12.0); Neutrophils # (auto) 6.5 uL; Neutrophils % (auto) 71.5 % (37.0-80.0); Platelet Count (auto) 274 10^3/uL (140-450); Red Blood Cells 3.79 10^6/uL (4.0-5.20); Red Cell Distribution Width 13.9 % (11.8-14.3); White Blood Cell 9.1 10^3/uL (4.4-10.8)
[2017-12-11 16:26] LABS: Alanine Aminotransferase 24 U/L (13-56); Albumin 3.7 g/dL (3.4-5.0); Alkaline Phosphatase 108 U/L (45-117); Anion Gap 5 (5-15); Aspartate Aminotransferase 13 U/L (15-37); BUN/Creatinine Ratio 17.3; Bilirubin, Total 0.3 mg/dL (0.2-1.0); Blood Urea Nitrogen 23 mg/dL (7-18); Calcium 8.4 mg/dL (8.5-10.1); Carbon Dioxide 24 mmol/L (21-32); Chloride 110 mmol/L (98-107); GFR African American 51 mL/min; GFR Non-African American 42 mL/min; Glucose 189 mg/dL (74-106); Potassium 3.9 mmol/L (3.5-5.1); Sodium 139 mmol/L (136-145); Total Protein 7.9 g/dL (6.4-8.2)
[2017-12-12 03:37] LABS: Amylase 104 U/L (25-115); Lipase 865 U/L (73-393)
[2017-12-12] MEDS ORDERED: DEXTROSE (50%) 50ML SYRG IV PRN (11:30)
[2017-12-12] MEDS ORDERED: METOPROLOL SUCCINATE XL 50 MG TAB PO ONE (11:30)
[2017-12-12] MEDS ORDERED: GLIMEPIRIDE 2 MG TAB PO ONE (11:30)
[2017-12-12] MEDS ORDERED: CLOPIDOGREL BISULFATE 75 MG TAB PO ONE (11:30)
[2017-12-12] MEDS: InsuLIN REG 1unit/0.01ml Soln (100units/ml) SC SCH ×3 (11:30→21:57)
[2017-12-12] MEDS ORDERED: cefTRIAXone 1GM/10ml IVPUSH 10 ML IV ONE (11:30)
[2017-12-12] MEDS: ACCU-CHEK COMFORT CURVE STRIP VI SCH ×3 (11:43→21:58)
[2017-12-12] MEDS ORDERED: MORPHINE SULF INJ 2 MG/ML SYRINGE 1ML IV PRN ×2 (11:45)
[2017-12-12] MEDS ORDERED: ACETAMINOPHEN 325 MG TAB PO PRN (11:45)
[2017-12-12] MEDS ORDERED: DOCUSATE SOD 100 MG CAP PO PRN (11:45)
[2017-12-12] MEDS ORDERED: LISINOPRIL 10 MG TAB PO ONE (11:45)
[2017-12-12] MEDS ORDERED: FUROSEMIDE 40 MG TAB PO ONE (11:45)
[2017-12-12] MEDS ORDERED: ASPirin-EC 81 mg tab PO ONE (11:45)
[2017-12-12] MEDS ORDERED: ISOSORBIDE MONONITRATE 60 MG TAB PO ONE (11:45)
[2017-12-12] MEDS ORDERED: ONDANSETRON HCL 4 MG/2 ML VIAL IV PRN (11:45)
[2017-12-12] MEDS ORDERED: NITROGLYCERIN 0.4 MG SL TAB SL PRN (11:45)
[2017-12-12] MEDS ORDERED: TEMAZEPAM 15 MG CAP PO PRN (11:45)
[2017-12-12] MEDS: SODIUM CHLORIDE 0.9% 1,000 ML IV SCH (12:31)
[2017-12-12] MEDS: IBUPROFEN 800 MG TAB PO SCH ×2 (14:15→21:57)
[2017-12-12 14:58] VITALS: BP 135/62
[2017-12-12] MEDS ORDERED: GLIM4TAB42 PO (15:52)
[2017-12-12 16:20] VITALS: BP 137/49
[2017-12-12] MEDS: ATORVASTATIN 20 MG TAB PO SCH (21:57)
[2017-12-12 22:00] VITALS: BP_SYST 132; BP_DIAS 52; BP_DIAS 54
[2017-12-12] MEDS: FAMOTIDINE 20 MG TAB PO SCH (22:37)
[2017-12-13] MEDS: SODIUM CHLORIDE 0.9% 1,000 ML IV SCH ×2 (02:30→04:48)
[2017-12-13 04:51] VITALS: BP 129/57
[2017-12-13] MEDS: IBUPROFEN 800 MG TAB PO SCH ×3 (05:15→21:26)
[2017-12-13] MEDS: ACCU-CHEK COMFORT CURVE STRIP VI SCH ×4 (06:31→21:25)
[2017-12-13] MEDS: InsuLIN REG 1unit/0.01ml Soln (100units/ml) SC SCH ×4 (06:31→21:26)
[2017-12-13] MEDS: GLIMEPIRIDE 2 MG TAB PO SCH (06:34)
[2017-12-13 07:06] LABS: Basophils # (auto) 0.1 uL; Basophils % (auto) 1.1 % (0.0-2.0); Eosinophils # (auto) 0.2 uL; Hematocrit 34.6 % (36.0-46.0); Hemoglobin 11.6 g/dL (12.2-16.2); Lymphocytes # (auto) 2.1 uL; Lymphocytes % (auto) 35.2 % (10.0-50.0); Mean Corpuscular Hemoglobin 30.6 pg (28.0-32.0); Mean Corpuscular Hgb Conc. 33.6 g/dL (32.0-36.0); Mean Corpuscular Volume 91.1 fL (80.0-100.0); Monocytes # (auto) 0.6 uL; Monocytes % (auto) 9.9 % (0.0-12.0); Neutrophils # (auto) 2.9 uL; Neutrophils % (auto) 49.8 % (37.0-80.0); Platelet Count (auto) 262 10^3/uL (140-450); Red Cell Distribution Width 13.7 % (11.8-14.3); White Blood Cell 5.8 10^3/uL (4.4-10.8)
[2017-12-13 07:12] LABS: INR 1.05 (0.9-1.15); Prothrombin Time 11.2 sec (9.27-12.13)
[2017-12-13 07:22] LABS: Albumin 3.2 g/dL (3.4-5.0); BUN/Creatinine Ratio 22.5; Bilirubin, Total 0.3 mg/dL (0.2-1.0); Calcium 8.5 mg/dL (8.5-10.1); Potassium 3.8 mmol/L (3.5-5.1); Total Protein 7.2 g/dL (6.4-8.2)
[2017-12-13 08:56] VITALS: BP 113/58
[2017-12-13] MEDS: MULTIPLE VITAMIN TAB PO SCH (09:52)
[2017-12-13] MEDS: ASPirin-EC 81 mg tab PO SCH (09:52)
[2017-12-13] MEDS: ISOSORBIDE MONONITRATE 60 MG TAB PO SCH (09:54)
[2017-12-13] MEDS: CLOPIDOGREL BISULFATE 75 MG TAB PO SCH (09:54)
[2017-12-13] MEDS: FUROSEMIDE 40 MG TAB PO SCH (09:55)
[2017-12-13] MEDS: METOPROLOL SUCCINATE XL 50 MG TAB PO SCH (09:56)
[2017-12-13] MEDS: cefTRIAXone 1GM/10ml IVPUSH 10 ML IV SCH (09:57)
[2017-12-13] MEDS ORDERED: LISINOPRIL 10 MG TAB PO SCH (10:00)
[2017-12-13] MEDS: FAMOTIDINE 20 MG TAB PO SCH ×2 (10:00→21:26)
[2017-12-13] MEDS ORDERED: MANNITOL FTV 25% 12.5 GM/50 ML 50 ML IV ONE (11:30)
[2017-12-13 12:37] VITALS: BP 128/74
[2017-12-13 17:17] VITALS: BP 128/70
[2017-12-13] MEDS: ATORVASTATIN 20 MG TAB PO SCH (21:26)
[2017-12-13 22:00] VITALS: BP 134/66
[2017-12-14 05:48] VITALS: BP 102/47
[2017-12-14] MEDS: GLIMEPIRIDE 2 MG TAB PO SCH (06:02)
[2017-12-14] MEDS: IBUPROFEN 800 MG TAB PO SCH (06:02)
[2017-12-14] MEDS: ACCU-CHEK COMFORT CURVE STRIP VI SCH ×2 (06:03→12:14)
[2017-12-14] MEDS: InsuLIN REG 1unit/0.01ml Soln (100units/ml) SC SCH ×2 (06:03→12:15)
[2017-12-14 07:56] LABS: Basophils # (auto) 0.1 uL; Basophils % (auto) 0.9 % (0.0-2.0); Eosinophils # (auto) 0.2 uL; Eosinophils % (auto) 2.9 % (0.0-7.0); Hematocrit 30.9 % (36.0-46.0); Hemoglobin 10.6 g/dL (12.2-16.2); Lymphocytes % (auto) 29.4 % (10.0-50.0); Mean Corpuscular Hgb Conc. 34.3 g/dL (32.0-36.0); Mean Corpuscular Volume 90.5 fL (80.0-100.0); Monocytes # (auto) 0.6 uL; Monocytes % (auto) 9.5 % (0.0-12.0); Neutrophils # (auto) 3.9 uL; Neutrophils % (auto) 57.3 % (37.0-80.0); Nucleated Red Blood Cells % 0.1 %; Platelet Count (auto) 242 10^3/uL (140-450); Red Blood Cells 3.41 10^6/uL (4.0-5.20); Red Cell Distribution Width 13.5 % (11.8-14.3); White Blood Cell 6.8 10^3/uL (4.4-10.8)
[2017-12-14 08:09] LABS: BUN/Creatinine Ratio 22.3; Calcium 8.4 mg/dL (8.5-10.1); Magnesium 1.9 mg/dL (1.6-2.6); Potassium 3.5 mmol/L (3.5-5.1)
[2017-12-14] MEDS: cefTRIAXone 1GM/10ml IVPUSH 10 ML IV SCH (09:00)
[2017-12-14] MEDS: MULTIPLE VITAMIN TAB PO SCH (09:01)
[2017-12-14] MEDS: ASPirin-EC 81 mg tab PO SCH (09:01)
[2017-12-14] MEDS: FAMOTIDINE 20 MG TAB PO SCH (09:01)
[2017-12-14] MEDS: CLOPIDOGREL BISULFATE 75 MG TAB PO SCH (09:01)
[2017-12-14] MEDS: FUROSEMIDE 40 MG TAB PO SCH (09:07)
[2017-12-14] MEDS: ISOSORBIDE MONONITRATE 60 MG TAB PO SCH (09:07)
[2017-12-14 09:08] VITALS: BP 110/50
[2017-12-14] MEDS: METOPROLOL SUCCINATE XL 50 MG TAB PO SCH (09:08)
[2017-12-14 13:00] VITALS: BP 122/54
== END 2017-12-14 14:30 | disposition home or self-care (01) | DRG 682 ==
LOC: ER 15:16 → TELE 15:17 → TELE-WESTW 12-12 13:41
PROVIDERS: ADMIT Internal Medicine; ATTEND Internal Medicine
DX: N17.0 Acute kidney failure with tubular necrosis (principal); K85.90 Acute pancreatitis without necrosis or infection, unspecified; N13.6 Pyonephrosis; I12.9 Hypertensive chronic kidney disease with stage 1 through stage 4 chronic kidney disease, or unspecified chronic kidney disease; N18.3 Chronic kidney disease, stage 3 (moderate); E11.22 Type 2 diabetes mellitus with diabetic chronic kidney disease; E11.21 Type 2 diabetes mellitus with diabetic nephropathy; D63.8 Anemia in other chronic diseases classified elsewhere; E78.5 Hyperlipidemia, unspecified; I25.10 Atherosclerotic heart disease of native coronary artery without angina pectoris; E83.51 Hypocalcemia; K76.0 Fatty (change of) liver, not elsewhere classified; Z82.49 Family history of ischemic heart disease and other diseases of the circulatory system; Z83.3 Family history of diabetes mellitus; Z86.73 Personal history of transient ischemic attack (TIA), and cerebral infarction without residual deficits; Z87.442 Personal history of urinary calculi; Z95.5 Presence of coronary angioplasty implant and graft; Z79.899 Other long term (current) drug therapy; Z79.82 Long term (current) use of aspirin; Z79.84 Long term (current) use of oral hypoglycemic drugs; Z90.49 Acquired absence of other specified parts of digestive tract; Z95.0 Presence of cardiac pacemaker
CPT/HCPCS: 36415; 74176; 80048; 80053; 81001; 82150; 82962; 83036; 83605; 83690; 83735; 84484; 85025; 85610; 87040; 87086; 93005; 94761; 96374; J0696; J1815

== ENCOUNTER 2017-12-27 10:25 | Inpatient (IN) | payer OTHER, MEDICAID ==
[~2017-12-27] VITALS: Ht 149.9 cm; Wt 62.5 kg
[~2017-12-27 10:25] MED LIST changes: -FURO40TA PO; -GLIM2TAB33 PO; +GLIM4TAB42 PO; -IBUP800T24 PO
[2017-12-27 12:05] LABS: Basophils # (auto) 0 uL; Basophils % (auto) 0.5 % (0.0-2.0); Eosinophils # (auto) 0 uL; Hematocrit 35.7 % (36.0-46.0); Hemoglobin 11.8 g/dL (12.2-16.2); Lymphocytes # (auto) 1.2 uL; Lymphocytes % (auto) 13.2 % (10.0-50.0); Mean Corpuscular Hemoglobin 30.5 pg (28.0-32.0); Mean Corpuscular Hgb Conc. 33.1 g/dL (32.0-36.0); Mean Corpuscular Volume 92.1 fL (80.0-100.0); Monocytes # (auto) 0.7 uL; Monocytes % (auto) 7.1 % (0.0-12.0); Neutrophils # (auto) 7.3 uL; Neutrophils % (auto) 79.2 % (37.0-80.0); Platelet Count (auto) 296 10^3/uL (140-450); Red Blood Cells 3.87 10^6/uL (4.0-5.20); Red Cell Distribution Width 14.4 % (11.8-14.3); White Blood Cell 9.2 10^3/uL (4.4-10.8)
[2017-12-27 12:22] LABS: Lactic Acid w/Reflex 3.6 mmol/L (0.4-2.0)
[2017-12-27 12:35] LABS: Albumin 3.5 g/dL (3.4-5.0); BUN/Creatinine Ratio 25.2; Bilirubin, Total 0.4 mg/dL (0.2-1.0); Magnesium 2.3 mg/dL (1.6-2.6); Total Protein 8.2 g/dL (6.4-8.2)
[2017-12-27] MEDS ORDERED: MORPHINE SULFATE 4 MG/ML SYR/VIAL IV PRN (14:00)
[2017-12-27] MEDS ORDERED: DEXTROSE (50%) 50ML SYRG IV PRN (14:00)
[2017-12-27] MEDS ORDERED: NITROGLYCERIN 0.4 MG SL TAB SL PRN (14:00)
[2017-12-27] MEDS ORDERED: IOHEXOL 350 MG/ML 100ML IJ ONE (14:46)
[2017-12-27] MEDS ORDERED: LIDOCAINE 2%HCL (LOCAL ANESTH.) INJ 20ML MDV ONE (14:47)
[2017-12-27] MEDS ORDERED: EPINEPHrine HCL 1 MG/10 ML SYRG ONE (15:00)
[2017-12-27] MEDS ORDERED: SODIUM CHL 0.9% 50 ML ONE (15:00)
[2017-12-27] MEDS ORDERED: fentaNYL CITRATE 100 MCG/2 ML VL ONE (15:00)
[2017-12-27] MEDS ORDERED: MIDAZOLAM HCL 1MG/1ML-2 ML VIAL ONE (15:00)
[2017-12-27] MEDS ORDERED: ATROPINE SULF 1 MG/10ml SYR ONE (15:00)
[2017-12-27] MEDS ORDERED: ANGIOMAX 250 MG VIAL IV ONE (15:00)
[2017-12-27] MEDS ORDERED: IODIXANOL 320MG/ML 100ML BTL IV ONE (16:01)
[2017-12-27] MEDS ORDERED: CLOPIDOGREL 300 MG TAB ONE (16:46)
[2017-12-27] MEDS ORDERED: ASPirin 325 MG TAB ONE (16:49)
[2017-12-27] MEDS ORDERED: SODIUM CHLORIDE 0.9% 1,000 ML IV ONE (17:15)
[2017-12-27 18:00] VITALS: BP 121/55
[2017-12-27] MEDS: ACCU-CHEK COMFORT CURVE STRIP VI SCH ×2 (18:12→23:48)
[2017-12-27] MEDS: LISINOPRIL 5 MG TAB PO SCH (19:13)
[2017-12-27] MEDS: METOPROLOL SUCCINATE XL 50 MG TAB PO SCH (19:14)
[2017-12-27] MEDS: InsuLIN REG 1unit/0.01ml Soln (100units/ml) SC SCH ×2 (19:15→23:54)
[2017-12-27] MEDS: ATORVASTATIN 20 MG TAB PO SCH (21:36)
[2017-12-28 02:56] VITALS: BP 132/65
[2017-12-28 05:30] VITALS: BP 124/60
[2017-12-28] MEDS: ACCU-CHEK COMFORT CURVE STRIP VI SCH ×3 (05:42→17:46)
[2017-12-28] MEDS: InsuLIN REG 1unit/0.01ml Soln (100units/ml) SC SCH ×3 (05:44→17:47)
[2017-12-28 05:53] LABS: INR 1.06 (0.9-1.15); Partial Thromboplastin Time 26.2 sec (23.78-33.04); Prothrombin Time 11.3 sec (9.27-12.13)
[2017-12-28 06:02] LABS: BUN/Creatinine Ratio 29.4; Calcium 8.1 mg/dL (8.5-10.1); Potassium 3.6 mmol/L (3.5-5.1)
[2017-12-28 09:00] VITALS: BP 131/69
[2017-12-28] MEDS ORDERED: HYDROcodone-ACET 5/325MG TAB PO PRN (10:15)
[2017-12-28] MEDS ORDERED: ACETAMINOPHEN 325 MG TAB PO PRN (10:15)
[2017-12-28] MEDS: LISINOPRIL 5 MG TAB PO SCH (10:17)
[2017-12-28] MEDS: CLOPIDOGREL BISULFATE 75 MG TAB PO SCH (10:18)
[2017-12-28] MEDS: METOPROLOL SUCCINATE XL 50 MG TAB PO SCH (10:19)
[2017-12-28] MEDS: ASPirin 81 mg TAB PO SCH (10:20)
[2017-12-28] MEDS: ISOSORBIDE MONONITRATE 60 MG TAB PO SCH (10:21)
[2017-12-28 13:00] VITALS: BP 106/49
[2017-12-28 16:21] VITALS: BP 116/57
[2017-12-28] MEDS ORDERED: FUROSEMIDE 20 MG/2 ML VIAL IV ONE (17:30)
[2017-12-28] MEDS ORDERED: FUROSEMIDE 100 MG/10ML VIAL IV ONE (17:30)
[2017-12-28] MEDS ORDERED: POTASSIUM CHL 20 Meq TABLET PO ONE (17:30)
[2017-12-28 22:13] VITALS: BP 105/58
[2017-12-28] MEDS: ATORVASTATIN 20 MG TAB PO SCH (22:14)
[2017-12-29] MEDS: ACCU-CHEK COMFORT CURVE STRIP VI SCH ×4 (01:07→17:37)
[2017-12-29] MEDS: InsuLIN REG 1unit/0.01ml Soln (100units/ml) SC SCH ×4 (01:11→17:37)
[2017-12-29 05:37] LABS: Basophils # (auto) 0.1 uL; Basophils % (auto) 0.8 % (0.0-2.0); Eosinophils # (auto) 0.2 uL; Eosinophils % (auto) 2.5 % (0.0-7.0); Hematocrit 33.4 % (36.0-46.0); Hemoglobin 11.1 g/dL (12.2-16.2); Lymphocytes % (auto) 28.6 % (10.0-50.0); Mean Corpuscular Hemoglobin 30.7 pg (28.0-32.0); Mean Corpuscular Hgb Conc. 33.2 g/dL (32.0-36.0); Mean Corpuscular Volume 92.3 fL (80.0-100.0); Monocytes # (auto) 0.8 uL; Monocytes % (auto) 10.9 % (0.0-12.0); Neutrophils # (auto) 4.1 uL; Neutrophils % (auto) 57.2 % (37.0-80.0); Nucleated Red Blood Cells % 0.2 %; Platelet Count (auto) 245 10^3/uL (140-450); Red Blood Cells 3.62 10^6/uL (4.0-5.20); Red Cell Distribution Width 14.1 % (11.8-14.3); White Blood Cell 7.1 10^3/uL (4.4-10.8)
[2017-12-29 05:56] VITALS: BP 106/59
[2017-12-29 05:57] LABS: BUN/Creatinine Ratio 27.8; Calcium 8.6 mg/dL (8.5-10.1); Magnesium 2.4 mg/dL (1.6-2.6); Phosphorus 2.5 mg/dL (2.5-4.90); Potassium 3.6 mmol/L (3.5-5.1)
[2017-12-29 09:02] VITALS: BP 108/64
[2017-12-29] MEDS: METOPROLOL SUCCINATE XL 50 MG TAB PO SCH (09:23)
[2017-12-29] MEDS: ASPirin 81 mg TAB PO SCH (09:23)
[2017-12-29] MEDS: CLOPIDOGREL BISULFATE 75 MG TAB PO SCH (09:23)
[2017-12-29] MEDS: ISOSORBIDE MONONITRATE 60 MG TAB PO SCH (09:24)
[2017-12-29] MEDS: LISINOPRIL 5 MG TAB PO SCH (09:25)
[2017-12-29] MEDS ORDERED: POTASSIUM CHL 20 Meq TABLET PO SCH (10:00)
[2017-12-29] MEDS ORDERED: FUROSEMIDE 40 MG TAB PO SCH (10:00)
[2017-12-29 12:53] VITALS: BP 110/60
[2017-12-29 17:00] VITALS: BP 112/68
== END 2017-12-29 18:45 | disposition home or self-care (01) | DRG 246 ==
LOC: ER 10:25 → OVERFLOW 10:26 → TELE-CENTR 19:06
PROVIDERS: ADMIT Internal Medicine; ATTEND Internal Medicine
PROC: 027034Z Dilation of Coronary Artery, One Artery with Drug-eluting Intraluminal Device, Percutaneous Approach (ICD-10-PCS; principal; 2017-12-27)
PROC: 4A023N7 Measurement of Cardiac Sampling and Pressure, Left Heart, Percutaneous Approach (ICD-10-PCS; 2017-12-27)
PROC: B2111ZZ Fluoroscopy of Multiple Coronary Arteries using Low Osmolar Contrast (ICD-10-PCS; 2017-12-27)
PROC: B41F1ZZ Fluoroscopy of Right Lower Extremity Arteries using Low Osmolar Contrast (ICD-10-PCS; 2017-12-27)
DX: I21.4 Non-ST elevation (NSTEMI) myocardial infarction (principal); I50.43 Acute on chronic combined systolic (congestive) and diastolic (congestive) heart failure; N17.0 Acute kidney failure with tubular necrosis; I13.0 Hypertensive heart and chronic kidney disease with heart failure and stage 1 through stage 4 chronic kidney disease, or unspecified chronic kidney disease; I25.5 Ischemic cardiomyopathy; N18.3 Chronic kidney disease, stage 3 (moderate); D64.9 Anemia, unspecified; E11.22 Type 2 diabetes mellitus with diabetic chronic kidney disease; I70.0 Atherosclerosis of aorta; I08.0 Rheumatic disorders of both mitral and aortic valves; E78.5 Hyperlipidemia, unspecified; I25.10 Atherosclerotic heart disease of native coronary artery without angina pectoris; Z86.73 Personal history of transient ischemic attack (TIA), and cerebral infarction without residual deficits; I25.2 Old myocardial infarction; Z79.02 Long term (current) use of antithrombotics/antiplatelets; Z79.82 Long term (current) use of aspirin; Z87.442 Personal history of urinary calculi; Z95.810 Presence of automatic (implantable) cardiac defibrillator; Z90.49 Acquired absence of other specified parts of digestive tract
CPT/HCPCS: 36415; 71046; 75710; 76775; 80048; 80053; 82962; 83036; 83605; 83735; 83880; 84100; 84484; 85025; 85610; 85730; 87040; 87081; 92928; 93005; 93306; 93458; 96361; 96374; 99152; 99291; A6257; C1874; J1815; J2250; Q9967

== ENCOUNTER 2020-06-26 21:57 | Inpatient (IN) | payer OTHER, MEDICAID ==
[~2020-06-26] VITALS: Ht 149.9 cm; Wt 55.9 kg
[~2020-06-26 21:57] MED LIST changes: +EMPA1TAB PO; +FURO40TA4 PO; +LISI-648 PO; -LISI10TA6 PO; -METO25TA62 PO; +METO25TA93 PO; -NITR-52 PO; -POM PO
[2020-06-26 23:02] LABS: Basophils # (auto) 0.1 10 ^3/uL (0-0.2); Basophils % (auto) 0.9 % (0.0-2.0); Eosinophils # (auto) 0.1 10 ^3/uL (0-0.8); Eosinophils % (auto) 1.9 % (0.0-7.0); Hematocrit 41.5 % (36.0-46.0); Hemoglobin 14.1 g/dL (12.2-16.2); Lymphocytes # (auto) 1.7 10 ^3/uL (0.4-5.4); Lymphocytes % (auto) 24.8 % (10.0-50.0); Mean Corpuscular Hemoglobin 31.6 pg (28.0-32.0); Mean Corpuscular Hgb Conc. 33.8 g/dL (32.0-36.0); Mean Corpuscular Volume 93.4 fL (80.0-100.0); Monocytes # (auto) 0.4 10 ^3/uL (0-1.3); Monocytes % (auto) 6.1 % (0.0-12.0); Neutrophils # (auto) 4.6 10 ^3/uL (1.6-8.6); Neutrophils % (auto) 66.3 % (37.0-80.0); Nucleated Red Blood Cells % 0.1 %; Platelet Count (auto) 223 10^3/uL (140-450); Red Blood Cells 4.45 10^6/uL (4.0-5.20); Red Cell Distribution Width 14.1 % (11.8-14.3); White Blood Cell 6.9 10^3/uL (4.4-10.8)
[2020-06-26 23:24] LABS: Albumin 3.7 g/dL (3.4-5.0); BUN/Creatinine Ratio 19.2; Calcium 8.7 mg/dL (8.5-10.1); INR 1.05 (0.9-1.15); Partial Thromboplastin Time 21.5 sec (23.0-31.2); Potassium 4.2 mmol/L (3.5-5.1)
[2020-06-26 23:28] LABS: Bilirubin, Total 0.3 mg/dL (0.2-1.0); Total Protein 7.9 g/dL (6.4-8.2)
[2020-06-27] MEDS ORDERED: HEPARIN DRIP/D5W 100UNITS/ML 250 ML IV SCH (01:30)
[2020-06-27] MEDS ORDERED: CLOPIDOGREL BISULFATE 75 MG TAB PO ONE (01:30)
[2020-06-27] MEDS ORDERED: HEPARIN SODIUM (PORCINE) 5000 UNITS/ML 1ML VIAL IV ONE ×2 (01:30→01:45)
[2020-06-27 02:29] LABS: Basophils # (auto) 0.1 10 ^3/uL (0-0.2); Basophils % (auto) 0.6 % (0.0-2.0); Eosinophils # (auto) 0 10 ^3/uL (0-0.8); Eosinophils % (auto) 0.5 % (0.0-7.0); Hematocrit 38.5 % (36.0-46.0); Hemoglobin 12.8 g/dL (12.2-16.2); Lymphocytes # (auto) 1.8 10 ^3/uL (0.4-5.4); Lymphocytes % (auto) 19.5 % (10.0-50.0); Mean Corpuscular Hgb Conc. 33.4 g/dL (32.0-36.0); Mean Corpuscular Volume 93.1 fL (80.0-100.0); Monocytes # (auto) 0.5 10 ^3/uL (0-1.3); Monocytes % (auto) 5.2 % (0.0-12.0); Neutrophils # (auto) 6.8 10 ^3/uL (1.6-8.6); Neutrophils % (auto) 74.2 % (37.0-80.0); Nucleated Red Blood Cells % 0.1 %; Platelet Count (auto) 216 10^3/uL (140-450); Red Blood Cells 4.14 10^6/uL (4.0-5.20); Red Cell Distribution Width 14.2 % (11.8-14.3); White Blood Cell 9.1 10^3/uL (4.4-10.8)
[2020-06-27 02:45] LABS: INR 1.07 (0.9-1.15); Partial Thromboplastin Time 24.6 sec (23.0-31.2)
[2020-06-27] MEDS ORDERED: ACETAMINOPHEN 325 MG TAB PO PRN (04:15)
[2020-06-27] MEDS ORDERED: MORPHINE SULF INJ 2 MG/ML SYRINGE 1ML IV PRN (04:15)
[2020-06-27] MEDS ORDERED: NITROGLYCERIN 0.4 MG SL TAB SL PRN (04:15)
[2020-06-27] MEDS ORDERED: ONDANSETRON HCL 4 MG/2 ML VIAL IV PRN (04:15)
[2020-06-27] MEDS ORDERED: DEXTROSE (50%) 50ML SYRG IV PRN (04:15)
[2020-06-27] MEDS: FUROSEMIDE 20 MG/2 ML VIAL IV SCH ×2 (06:17→18:33)
[2020-06-27] MEDS: InsuLIN REG 1unit/0.01ml Soln (100units/ml) SC SCH ×4 (06:18→23:40)
[2020-06-27] MEDS: ACCU-CHEK COMFORT CURVE STRIP VI SCH ×4 (06:22→23:38)
[2020-06-27 09:07] LABS: INR 1.11 (0.9-1.15)
[2020-06-27] MEDS: LISINOPRIL 10 MG TAB PO SCH (10:00)
[2020-06-27] MEDS: PANTOPRAZOLE 40 MG TAB PO SCH (10:00)
[2020-06-27] MEDS: CLOPIDOGREL BISULFATE 75 MG TAB PO SCH (10:00)
[2020-06-27] MEDS: ASPirin 81 mg TAB PO SCH (10:00)
[2020-06-27] MEDS: METOPROLOL SUCCINATE XL 50 MG TAB PO SCH (10:00)
[2020-06-27 10:09] LABS: Partial Thromboplastin Time > 139.0 sec (23.0-31.2)
[2020-06-27] MEDS ORDERED: fentaNYL CITRATE 100 MCG/2 ML VL ONE (10:47)
[2020-06-27] MEDS ORDERED: SODIUM CHL 0.9% 50 ML ONE (10:47)
[2020-06-27] MEDS ORDERED: MIDAZOLAM HCL 1MG/1ML-2 ML VIAL ONE (10:47)
[2020-06-27] MEDS ORDERED: IOHEXOL 350 MG/ML 100ML IJ ONE (10:48)
[2020-06-27] MEDS ORDERED: LIDOCAINE 2%HCL (LOCAL ANESTH.) INJ 20ML MDV ONE (10:48)
[2020-06-27] MEDS ORDERED: ANGIOMAX 250 MG VIAL IV ONE (11:11)
[2020-06-27] MEDS ORDERED: CLOPIDOGREL BISULFATE 75 MG TAB ONE (11:25)
[2020-06-27] MEDS ORDERED: ASPirin 81 mg TAB ONE (11:25)
[2020-06-27] MEDS ORDERED: HYDROcodone-ACET 5/325MG TAB PO PRN (14:15)
[2020-06-27 16:59] VITALS: BP 112/65
[2020-06-27] MEDS ORDERED: METO25TA5 PO (17:58)
[2020-06-27] MEDS ORDERED: ISO60SRT PO (17:58)
[2020-06-27] MEDS ORDERED: EMPA1TAB3 PO (18:01)
[2020-06-27] MEDS ORDERED: METF-929 PO (18:02)
[2020-06-27] MEDS ORDERED: SOTA80TA7 PO (18:04)
[2020-06-27] MEDS ORDERED: CHOL20007 PO (18:05)
[2020-06-27] MEDS ORDERED: APIX5TAB PO (18:05)
[2020-06-27] MEDS ORDERED: MAGN241.4 PO (18:06)
[2020-06-27] MEDS ORDERED: NITR0.4S29 SL (18:08)
[2020-06-27 20:00] VITALS: BP 99/56
[2020-06-27] MEDS ORDERED: ATORVASTATIN 20 MG TAB PO SCH (22:00)
[2020-06-28 04:29] VITALS: BP 91/57
[2020-06-28] MEDS: FUROSEMIDE 20 MG/2 ML VIAL IV SCH (05:21)
[2020-06-28] MEDS: ACCU-CHEK COMFORT CURVE STRIP VI SCH ×2 (05:21→11:05)
[2020-06-28] MEDS: InsuLIN REG 1unit/0.01ml Soln (100units/ml) SC SCH ×2 (05:21→11:06)
[2020-06-28 05:43] LABS: Basophils # (auto) 0 10 ^3/uL (0-0.2); Basophils % (auto) 0.6 % (0.0-2.0); Eosinophils # (auto) 0.2 10 ^3/uL (0-0.8); Eosinophils % (auto) 2.4 % (0.0-7.0); Hematocrit 37.7 % (36.0-46.0); Hemoglobin 12.7 g/dL (12.2-16.2); Lymphocytes # (auto) 2.5 10 ^3/uL (0.4-5.4); Lymphocytes % (auto) 32.5 % (10.0-50.0); Mean Corpuscular Hemoglobin 30.8 pg (28.0-32.0); Mean Corpuscular Hgb Conc. 33.8 g/dL (32.0-36.0); Mean Corpuscular Volume 91.3 fL (80.0-100.0); Monocytes # (auto) 0.7 10 ^3/uL (0-1.3); Monocytes % (auto) 8.5 % (0.0-12.0); Neutrophils # (auto) 4.3 10 ^3/uL (1.6-8.6); Nucleated Red Blood Cells % 0.1 %; Platelet Count (auto) 207 10^3/uL (140-450); Red Blood Cells 4.13 10^6/uL (4.0-5.20); Red Cell Distribution Width 14.3 % (11.8-14.3); White Blood Cell 7.7 10^3/uL (4.4-10.8)
[2020-06-28 06:00] LABS: Potassium 3.4 mmol/L (3.5-5.1)
[2020-06-28 06:10] LABS: Calcium 8.6 mg/dL (8.5-10.1)
[2020-06-28 09:00] VITALS: BP 97/47
[2020-06-28] MEDS: LISINOPRIL 10 MG TAB PO SCH (09:22)
[2020-06-28] MEDS: METOPROLOL SUCCINATE XL 50 MG TAB PO SCH (09:22)
[2020-06-28] MEDS: ASPirin 81 mg TAB PO SCH (09:28)
[2020-06-28] MEDS: PANTOPRAZOLE 40 MG TAB PO SCH (09:29)
[2020-06-28] MEDS: CLOPIDOGREL BISULFATE 75 MG TAB PO SCH (09:29)
[2020-06-28] MEDS ORDERED: LISINOPRIL 10 MG TAB PO SCH (11:15)
[2020-06-28 13:00] VITALS: BP 96/62
[2020-06-28 15:53] VITALS: BP 97/47
[2020-06-28 17:00] VITALS: BP 95/42
== END 2020-06-28 17:42 | disposition home or self-care (01) | DRG 246 ==
LOC: EDBD 21:57 → ER 22:00 → TELE 22:01 → TELE-CENTR 06-27 15:25
PROVIDERS: ADMIT Nurse Practitioner; ATTEND Hospitalist
PROC: 027135Z Dilation of Coronary Artery, Two Arteries with Two Drug-eluting Intraluminal Devices, Percutaneous Approach (ICD-10-PCS; principal; 2020-06-27)
PROC: 4A023N7 Measurement of Cardiac Sampling and Pressure, Left Heart, Percutaneous Approach (ICD-10-PCS; 2020-06-27)
PROC: B2111ZZ Fluoroscopy of Multiple Coronary Arteries using Low Osmolar Contrast (ICD-10-PCS; 2020-06-27)
DX: T82.855A Stenosis of coronary artery stent, initial encounter (principal); I21.4 Non-ST elevation (NSTEMI) myocardial infarction; I50.23 Acute on chronic systolic (congestive) heart failure; I13.0 Hypertensive heart and chronic kidney disease with heart failure and stage 1 through stage 4 chronic kidney disease, or unspecified chronic kidney disease; E11.22 Type 2 diabetes mellitus with diabetic chronic kidney disease; E11.40 Type 2 diabetes mellitus with diabetic neuropathy, unspecified; E11.65 Type 2 diabetes mellitus with hyperglycemia; E78.5 Hyperlipidemia, unspecified; I25.10 Atherosclerotic heart disease of native coronary artery without angina pectoris; I25.2 Old myocardial infarction; I25.5 Ischemic cardiomyopathy; Z20.822 Contact with and (suspected) exposure to COVID-19; Z82.49 Family history of ischemic heart disease and other diseases of the circulatory system; Z83.3 Family history of diabetes mellitus; Z86.73 Personal history of transient ischemic attack (TIA), and cerebral infarction without residual deficits; Z95.5 Presence of coronary angioplasty implant and graft; Y83.1 Surgical operation with implant of artificial internal device as the cause of abnormal reaction of the patient, or of later complication, without mention of misadventure at the time of the procedure; Z90.49 Acquired absence of other specified parts of digestive tract; Z79.84 Long term (current) use of oral hypoglycemic drugs; Z79.899 Other long term (current) drug therapy; N18.31 Chronic kidney disease, stage 3a
CPT/HCPCS: 36415; 71045; 80048; 80053; 82962; 83880; 84484; 85025; 85610; 85730; 87426; 92928; 93005; 93306; 93458; 99152; 99153; 99291; C1874; C1887; G0378; J1815; J2250

== ENCOUNTER 2021-02-26 23:10 | Inpatient (IN) | payer OTHER, MEDICAID ==
[~2021-02-26] VITALS: Ht 149.9 cm; Wt 54.9 kg
[~2021-02-26 23:10] MED LIST changes: -ACAR100T PO; +APIX5TAB PO; -EMPA1TAB PO; +EMPA1TAB3 PO; -FURO40TA4 PO; -GLIM4TAB42 PO; -ISOS30TA4 PO; -LISI-648 PO; +LISI-716 PO; +MAGN241.4 PO; -METF-771 PO; +METF-929 PO; +METO25TA5 PO; -METO25TA93 PO; +NITR0.4S29 SL; +SOTA80TA39 PO
[2021-02-27 00:18] LABS: Basophils # (auto) 0.1 10 ^3/uL (0-0.2); Basophils % (auto) 0.9 % (0.0-2.0); Eosinophils # (auto) 0.2 10 ^3/uL (0-0.8); Eosinophils % (auto) 1.8 % (0.0-7.0); Hematocrit 40.8 % (36.0-46.0); Hemoglobin 13.5 g/dL (12.2-16.2); Lymphocytes # (auto) 1.9 10 ^3/uL (0.4-5.4); Lymphocytes % (auto) 19.2 % (10.0-50.0); Mean Corpuscular Hgb Conc. 33.2 g/dL (32.0-36.0); Mean Corpuscular Volume 93.6 fL (80.0-100.0); Monocytes # (auto) 0.6 10 ^3/uL (0-1.3); Monocytes % (auto) 6.1 % (0.0-12.0); Neutrophils # (auto) 7.1 10 ^3/uL (1.6-8.6); Nucleated Red Blood Cells % 0.1 %; Red Blood Cells 4.36 10^6/uL (4.0-5.20); Red Cell Distribution Width 14.3 % (11.8-14.3); White Blood Cell 9.8 10^3/uL (4.4-10.8)
[2021-02-27 00:45] LABS: Urine Bacteria MANY /hpf (None Seen); Urine Blood Negative /uL (Negative); Urine Mucus FEW (None Seen); Urine Specific Gravity 1.027 (1.001-1.035); Urine WBC 2 /hpf (0 - 5)
[2021-02-27 01:32] LABS: Albumin 3.1 g/dL (3.4-5.0); Potassium 3.5 mmol/L (3.5-5.1)
[2021-02-27 01:40] LABS: BUN/Creatinine Ratio 23.6; Bilirubin, Total 0.4 mg/dL (0.2-1.0); Total Protein 7.2 g/dL (6.4-8.2)
[2021-02-27 01:59] LABS: INR 1.16 (0.9-1.15); Partial Thromboplastin Time 25.1 sec (23.6-33.0)
[2021-02-27] MEDS ORDERED: ASPirin 325 MG TAB PO ONE (03:15)
[2021-02-27] MEDS ORDERED: TEMAZEPAM 15 MG CAP PO PRN (05:15)
[2021-02-27] MEDS ORDERED: NITROGLYCERIN 0.4 MG SL TAB SL PRN (05:15)
[2021-02-27] MEDS ORDERED: ACETAMINOPHEN 325 MG TAB PO PRN (05:15)
[2021-02-27] MEDS ORDERED: FUROSEMIDE 40 MG/4 ML VIAL IV ONE (05:15)
[2021-02-27] MEDS ORDERED: ONDANSETRON HCL 4 MG/2 ML VIAL IV PRN (05:15)
[2021-02-27] MEDS ORDERED: DEXTROSE (50%) 50ML SYRG IV PRN (05:15)
[2021-02-27] MEDS ORDERED: MORPHINE SULFATE INJECTION 2 MG/ML SYRG IV PRN (05:15)
[2021-02-27] MEDS ORDERED: HEPARIN SODIUM (PORCINE) 5000 UNITS/ML 1ML VIAL IV ONE (05:30)
[2021-02-27] MEDS ORDERED: HEPARIN DRIP/D5W 100UNITS/ML 250 ML IV SCH (05:30)
[2021-02-27] MEDS ORDERED: ENOXAPARIN SOD 100 MG/1 ML SYRINGE SC ONE (06:00)
[2021-02-27] MEDS: ACCU-CHEK COMFORT CURVE STRIP VI SCH ×4 (06:54→21:41)
[2021-02-27] MEDS: InsuLIN REG 1unit/0.01ml Soln (100units/ml) SC SCH ×4 (06:57→21:41)
[2021-02-27] MEDS: CLOPIDOGREL BISULFATE 75 MG TAB PO SCH (09:00)
[2021-02-27] MEDS: PANTOPRAZOLE 40 MG TAB PO SCH (09:01)
[2021-02-27] MEDS: METOPROLOL SUCCINATE XL 50 MG TAB PO SCH (09:01)
[2021-02-27] MEDS: LISINOPRIL 10 MG TAB PO SCH (09:02)
[2021-02-27] MEDS ORDERED: ASPirin 81 mg TAB PO SCH (10:00)
[2021-02-27] MEDS ORDERED: cefTRIAXone 1GM/50ML D5W 50 ML IV ONE (15:15)
[2021-02-27 17:00] VITALS: BP 141/77
[2021-02-27] MEDS: FUROSEMIDE 20 MG/2 ML VIAL IV SCH (17:50)
[2021-02-27] MEDS: APIXABAN 5 MG TAB PO SCH (21:41)
[2021-02-27 22:00] VITALS: BP 110/56
[2021-02-27] MEDS ORDERED: ATORVASTATIN 20 MG TAB PO SCH (22:00)
[2021-02-28 05:00] VITALS: BP 112/49
[2021-02-28] MEDS: FUROSEMIDE 20 MG/2 ML VIAL IV SCH ×2 (06:28→18:00)
[2021-02-28] MEDS: InsuLIN REG 1unit/0.01ml Soln (100units/ml) SC SCH ×3 (06:30→17:00)
[2021-02-28] MEDS: ACCU-CHEK COMFORT CURVE STRIP VI SCH ×3 (06:31→17:00)
[2021-02-28] MEDS ORDERED: cefTRIAXone 1GM/50ML D5W 50 ML IV SCH (09:00)
[2021-02-28 09:12] LABS: Basophils # (auto) 0.1 10 ^3/uL (0-0.2); Basophils % (auto) 1.1 % (0.0-2.0); Eosinophils # (auto) 0.2 10 ^3/uL (0-0.8); Eosinophils % (auto) 2.6 % (0.0-7.0); Hematocrit 43.4 % (36.0-46.0); Hemoglobin 14.5 g/dL (12.2-16.2); Lymphocytes # (auto) 2.3 10 ^3/uL (0.4-5.4); Mean Corpuscular Hgb Conc. 33.5 g/dL (32.0-36.0); Mean Corpuscular Volume 92.5 fL (80.0-100.0); Monocytes # (auto) 0.5 10 ^3/uL (0-1.3); Monocytes % (auto) 8.1 % (0.0-12.0); Neutrophils # (auto) 3.1 10 ^3/uL (1.6-8.6); Neutrophils % (auto) 50.2 % (37.0-80.0); Nucleated Red Blood Cells % 0.1 %; Red Blood Cells 4.69 10^6/uL (4.0-5.20); Red Cell Distribution Width 14.2 % (11.8-14.3); White Blood Cell 6.1 10^3/uL (4.4-10.8)
[2021-02-28 09:26] VITALS: BP 139/69
[2021-02-28 09:29] LABS: Potassium 3.4 mmol/L (3.5-5.1)
[2021-02-28 09:38] LABS: Albumin 3.3 g/dL (3.4-5.0); BUN/Creatinine Ratio 29.6; Bilirubin, Total 0.4 mg/dL (0.2-1.0); Calcium 9.2 mg/dL (8.5-10.1); Total Protein 6.8 g/dL (6.4-8.2)
[2021-02-28] MEDS: APIXABAN 5 MG TAB PO SCH (10:00)
[2021-02-28] MEDS ORDERED: ASPirin 81 mg TAB PO SCH (10:00)
[2021-02-28] MEDS: METOPROLOL SUCCINATE XL 50 MG TAB PO SCH (10:00)
[2021-02-28] MEDS: CLOPIDOGREL BISULFATE 75 MG TAB PO SCH (10:00)
[2021-02-28] MEDS: PANTOPRAZOLE 40 MG TAB PO SCH (10:00)
[2021-02-28] MEDS: LISINOPRIL 10 MG TAB PO SCH (10:00)
[2021-02-28 13:00] VITALS: BP 109/68
[2021-02-28 17:14] VITALS: BP 103/55
[2021-02-28] MEDS ORDERED: POTASSIUM EFFERVESENT TAB 25 MEQ PO ONE (18:30)
[2021-02-28] MEDS ORDERED: LEVO500T31 PO (18:31)
[2021-02-28 19:11] VITALS: BP 103/65
== END 2021-02-28 21:00 | disposition home or self-care (01) | DRG 281 ==
LOC: EDSEX 23:10 → EDBD 23:10 → ER 23:10 → TELE 02-27 05:15 → TELE-WESTW 02-27 12:34
PROVIDERS: ADMIT Nurse Practitioner; ATTEND Nurse Practitioner
DX: R07.9 Chest pain, unspecified (principal); I21.A1 Myocardial infarction type 2; N39.0 Urinary tract infection, site not specified; I50.22 Chronic systolic (congestive) heart failure; I11.0 Hypertensive heart disease with heart failure; E11.9 Type 2 diabetes mellitus without complications; E78.5 Hyperlipidemia, unspecified; I25.2 Old myocardial infarction; I25.10 Atherosclerotic heart disease of native coronary artery without angina pectoris; Z20.822 Contact with and (suspected) exposure to COVID-19; I25.5 Ischemic cardiomyopathy; Z86.73 Personal history of transient ischemic attack (TIA), and cerebral infarction without residual deficits; Z90.49 Acquired absence of other specified parts of digestive tract; Z95.0 Presence of cardiac pacemaker; E87.6 Hypokalemia
CPT/HCPCS: 36415; 71045; 80053; 81001; 82962; 83735; 83880; 84443; 84484; 85025; 85610; 85730; 87040; 87086; 87088; 87186; 87426; 93005; 93306; 96372; 96374; G0378; J0696; J1815

== ENCOUNTER 2021-04-04 06:19 | Inpatient (IN) | payer OTHER, MEDICAID ==
[~2021-04-04] VITALS: Ht 160 cm; Wt 55.1 kg
[~2021-04-04 06:19] MED LIST changes: +LEVO500T31 PO
[2021-04-04 07:34] LABS: Basophils # (auto) 0.1 10 ^3/uL (0-0.2); Basophils % (auto) 0.8 % (0.0-2.0); Eosinophils # (auto) 0.2 10 ^3/uL (0-0.8); Eosinophils % (auto) 1.6 % (0.0-7.0); Hematocrit 44.3 % (36.0-46.0); Hemoglobin 14.2 g/dL (12.2-16.2); Lymphocytes # (auto) 2.4 10 ^3/uL (0.4-5.4); Lymphocytes % (auto) 19.3 % (10.0-50.0); Mean Corpuscular Hemoglobin 30.6 pg (28.0-32.0); Mean Corpuscular Hgb Conc. 32.1 g/dL (32.0-36.0); Mean Corpuscular Volume 95.6 fL (80.0-100.0); Monocytes # (auto) 0.5 10 ^3/uL (0-1.3); Monocytes % (auto) 4.3 % (0.0-12.0); Neutrophils # (auto) 9.1 10 ^3/uL (1.6-8.6); Nucleated Red Blood Cells % 0.2 %; Red Blood Cells 4.63 10^6/uL (4.0-5.20); Red Cell Distribution Width 14.2 % (11.8-14.3); White Blood Cell 12.3 10^3/uL (4.4-10.8)
[2021-04-04 07:47] LABS: INR 1.09 (0.9-1.15); Partial Thromboplastin Time 25.8 sec (23.6-33.0)
[2021-04-04 07:50] LABS: Albumin 3.4 g/dL (3.4-5.0); Calcium 8.7 mg/dL (8.5-10.1); Magnesium 2.7 mg/dL (1.6-2.6); Potassium 4.5 mmol/L (3.5-5.1)
[2021-04-04 07:56] LABS: BUN/Creatinine Ratio 16.2; Bilirubin, Total 0.4 mg/dL (0.2-1.0); Total Protein 8.1 g/dL (6.4-8.2)
[2021-04-04 09:04] LABS: Urine Bacteria FEW /hpf (None Seen); Urine Blood Negative /uL (Negative); Urine Specific Gravity 1.006 (1.001-1.035); Urine WBC 2 /hpf (0 - 5)
[2021-04-04] MEDS ORDERED: FUROSEMIDE 40 MG/4 ML VIAL IV ONE (12:30)
[2021-04-04] MEDS ORDERED: IOHEXOL 350 MG/ML 100ML IJ ONE (12:54)
[2021-04-04] MEDS ORDERED: AZITHROMYCIN 500MG/ 250ML 250 ML IV ONE (16:45)
[2021-04-04] MEDS ORDERED: cefTRIAXone 1GM/50ML D5W 50 ML IV ONE (16:45)
[2021-04-04] MEDS ORDERED: ACETAMINOPHEN 325 MG TAB PO PRN (17:15)
[2021-04-04] MEDS ORDERED: HYDROcodone-ACET 5/325MG TAB PO PRN (17:15)
[2021-04-04] MEDS ORDERED: NITROGLYCERIN 0.4 MG SL TAB SL PRN (17:15)
[2021-04-04] MEDS ORDERED: ONDANSETRON HCL 4 MG/2 ML VIAL IV PRN (17:15)
[2021-04-04] MEDS ORDERED: MORPHINE SULFATE INJECTION 2 MG/ML SYRG IV PRN (17:15)
[2021-04-04] MEDS: FUROSEMIDE 40 MG/4 ML VIAL IV SCH (18:26)
[2021-04-04] MEDS ORDERED: CHOL500021 OR (18:51)
[2021-04-04] MEDS ORDERED: MEXI150C15 PO (18:51)
[2021-04-04 22:00] VITALS: BP 121/64
[2021-04-04 22:07] VITALS: BP 121/64
[2021-04-04] MEDS ORDERED: INFLUENZA QUAD 2021-2022 0.5 ML SYRG IM ONE (23:00)
[2021-04-04 23:07] VITALS: BP 121/64
[2021-04-04] MEDS ORDERED: MULT-927 PO (23:24)
[2021-04-05 05:00] VITALS: BP 109/52
[2021-04-05] MEDS: FUROSEMIDE 40 MG/4 ML VIAL IV SCH ×2 (06:22→17:35)
[2021-04-05 06:47] LABS: Basophils # (auto) 0.1 10 ^3/uL (0-0.2); Basophils % (auto) 1.2 % (0.0-2.0); Eosinophils # (auto) 0.2 10 ^3/uL (0-0.8); Eosinophils % (auto) 3.3 % (0.0-7.0); Hematocrit 40.6 % (36.0-46.0); Hemoglobin 13.4 g/dL (12.2-16.2); Lymphocytes # (auto) 2.2 10 ^3/uL (0.4-5.4); Lymphocytes % (auto) 39.9 % (10.0-50.0); Mean Corpuscular Hemoglobin 30.6 pg (28.0-32.0); Mean Corpuscular Volume 92.8 fL (80.0-100.0); Monocytes # (auto) 0.5 10 ^3/uL (0-1.3); Monocytes % (auto) 9.2 % (0.0-12.0); Neutrophils # (auto) 2.6 10 ^3/uL (1.6-8.6); Neutrophils % (auto) 46.4 % (37.0-80.0); Nucleated Red Blood Cells % 0.1 %; Red Blood Cells 4.37 10^6/uL (4.0-5.20); White Blood Cell 5.5 10^3/uL (4.4-10.8)
[2021-04-05 07:01] LABS: Potassium 3.6 mmol/L (3.5-5.1)
[2021-04-05 07:08] LABS: BUN/Creatinine Ratio 23.4; Calcium 8.7 mg/dL (8.5-10.1); Magnesium 2.6 mg/dL (1.6-2.6)
[2021-04-05 09:00] VITALS: BP 113/57
[2021-04-05] MEDS: ENOXAPARIN SOD 40 MG/0.4 ML SYRINGE SC SCH (10:34)
[2021-04-05] MEDS: cefTRIAXone 1GM/50ML D5W 50 ML IV SCH (10:34)
[2021-04-05 13:00] VITALS: BP 108/56
[2021-04-05] MEDS ORDERED: DEXTROSE (50%) 50ML SYRG IV PRN (14:30)
[2021-04-05 17:00] VITALS: BP 123/69
[2021-04-05] MEDS: ACCU-CHEK COMFORT CURVE STRIP VI SCH ×2 (17:16→23:27)
[2021-04-05] MEDS: InsuLIN REG 1unit/0.01ml Soln (100units/ml) SC SCH ×2 (17:34→23:40)
[2021-04-05 22:00] VITALS: BP 128/66
[2021-04-06 05:00] VITALS: BP 120/72
[2021-04-06] MEDS: InsuLIN REG 1unit/0.01ml Soln (100units/ml) SC SCH ×4 (06:35→22:33)
[2021-04-06] MEDS: FUROSEMIDE 40 MG/4 ML VIAL IV SCH ×2 (06:47→17:11)
[2021-04-06 09:00] VITALS: BP 131/71
[2021-04-06] MEDS: cefTRIAXone 1GM/50ML D5W 50 ML IV SCH (09:00)
[2021-04-06] MEDS: ENOXAPARIN SOD 40 MG/0.4 ML SYRINGE SC SCH (09:03)
[2021-04-06] MEDS: LISINOPRIL 5 MG TAB PO SCH (10:00)
[2021-04-06] MEDS: ACCU-CHEK COMFORT CURVE STRIP VI SCH ×3 (11:18→22:36)
[2021-04-06 13:00] VITALS: BP 141/58
[2021-04-06 17:14] VITALS: BP 124/68
[2021-04-06 22:00] VITALS: BP 125/49
[2021-04-07 05:07] VITALS: BP 96/55
[2021-04-07] MEDS: FUROSEMIDE 40 MG/4 ML VIAL IV SCH (06:33)
[2021-04-07] MEDS: ACCU-CHEK COMFORT CURVE STRIP VI SCH ×2 (06:34→11:22)
[2021-04-07] MEDS: InsuLIN REG 1unit/0.01ml Soln (100units/ml) SC SCH ×2 (07:10→11:41)
[2021-04-07 08:36] VITALS: BP 117/55
[2021-04-07] MEDS: LISINOPRIL 5 MG TAB PO SCH (09:06)
[2021-04-07] MEDS: cefTRIAXone 1GM/50ML D5W 50 ML IV SCH (09:06)
[2021-04-07] MEDS: ENOXAPARIN SOD 40 MG/0.4 ML SYRINGE SC SCH (09:06)
[2021-04-07] MEDS ORDERED: NITROGLYCERIN 0.4 MG SL TAB SL SCH (09:45)
[2021-04-07] MEDS ORDERED: MULTIPLE VITAMINS W/ MINERALS TAB PO SCH (10:00)
[2021-04-07] MEDS ORDERED: APIXABAN 5 MG TAB PO SCH (10:00)
[2021-04-07] MEDS ORDERED: MAGNESIUM OXIDE 400 MG TAB PO SCH (10:00)
[2021-04-07] MEDS ORDERED: MEXILETINE HYDROCHLORIDE 150 MG CAP PO SCH (10:00)
[2021-04-07] MEDS ORDERED: DOXY-286 PO ×2 (10:47→13:57)
[2021-04-07] MEDS ORDERED: HYDR1TAB97 PO (10:47)
[2021-04-07 13:00] VITALS: BP 109/58
[2021-04-07] MEDS ORDERED: ATORVASTATIN 20 MG TAB PO SCH (22:00)
[2021-04-08] MEDS ORDERED: CHOLECALCIFEROL (VITD3) 2,000 UNIT CAP/TAB PO SCH (10:00)
== END 2021-04-07 18:03 | disposition home or self-care (01) | DRG 291 ==
LOC: EDBD 06:19 → ER 06:19 → TELE-WESTW 17:03
PROVIDERS: ADMIT Internal Medicine; ATTEND Internal Medicine
PROC: 5A09357 Assistance with Respiratory Ventilation, Less than 24 Consecutive Hours, Continuous Positive Airway Pressure (ICD-10-PCS; principal; 2021-04-04)
PROC: 3E0234Z Introduction of Serum, Toxoid and Vaccine into Muscle, Percutaneous Approach (ICD-10-PCS; 2021-04-05)
DX: I11.0 Hypertensive heart disease with heart failure (principal); J96.01 Acute respiratory failure with hypoxia; J18.9 Pneumonia, unspecified organism; I50.23 Acute on chronic systolic (congestive) heart failure; N17.9 Acute kidney failure, unspecified; I25.5 Ischemic cardiomyopathy; I25.10 Atherosclerotic heart disease of native coronary artery without angina pectoris; E11.9 Type 2 diabetes mellitus without complications; E78.5 Hyperlipidemia, unspecified; Z20.822 Contact with and (suspected) exposure to COVID-19; Z86.73 Personal history of transient ischemic attack (TIA), and cerebral infarction without residual deficits; I25.2 Old myocardial infarction; Z98.61 Coronary angioplasty status; Z90.49 Acquired absence of other specified parts of digestive tract; Z23 Encounter for immunization; Z95.810 Presence of automatic (implantable) cardiac defibrillator
CPT/HCPCS: 36415; 36600; 71045; 71275; 80048; 80053; 81001; 82805; 82962; 83735; 83880; 84484; 85025; 85379; 85610; 85730; 87426; 90686; 93005; 94660; 96365; 96368; 96375; 97163; 99291; G0378; J0696; J1815

== ENCOUNTER 2021-04-23 22:01 | Emergency (ER) | payer OTHER, MEDICAID ==
[~2021-04-23] VITALS: Ht 157.5 cm; Wt 49.9 kg
[~2021-04-23 22:01] MED LIST changes: -ASPI81CH43 PO; +CHOL500021 OR; +DOXY-286 PO; -EMPA1TAB3 PO; -LEVO500T31 PO; -METO25TA5 PO; +MEXI150C15 PO; +MULT-927 PO
[2021-04-23 23:19] LABS: Basophils # (auto) 0.1 10 ^3/uL (0-0.2); Eosinophils # (auto) 0.2 10 ^3/uL (0-0.8); Eosinophils % (auto) 1.6 % (0.0-7.0); Hematocrit 41.7 % (36.0-46.0); Hemoglobin 13.7 g/dL (12.2-16.2); Lymphocytes # (auto) 1.6 10 ^3/uL (0.4-5.4); Lymphocytes % (auto) 13.8 % (10.0-50.0); Mean Corpuscular Hemoglobin 30.9 pg (28.0-32.0); Mean Corpuscular Hgb Conc. 32.7 g/dL (32.0-36.0); Mean Corpuscular Volume 94.3 fL (80.0-100.0); Monocytes # (auto) 0.4 10 ^3/uL (0-1.3); Monocytes % (auto) 3.7 % (0.0-12.0); Neutrophils # (auto) 9.5 10 ^3/uL (1.6-8.6); Neutrophils % (auto) 79.9 % (37.0-80.0); Red Blood Cells 4.43 10^6/uL (4.0-5.20); Red Cell Distribution Width 13.7 % (11.8-14.3); White Blood Cell 11.9 10^3/uL (4.4-10.8)
[2021-04-23 23:39] LABS: Albumin 3.3 g/dL (3.4-5.0); Calcium 8.9 mg/dL (8.5-10.1); Potassium 5.5 mmol/L (3.5-5.1)
[2021-04-23 23:43] LABS: BUN/Creatinine Ratio 20.7
[2021-04-23 23:48] LABS: Lactic Acid w/Reflex 5.2 mmol/L (0.4-2.0)
[2021-04-23 23:50] LABS: Bilirubin, Total 0.3 mg/dL (0.2-1.0); Total Protein 7.9 g/dL (6.4-8.2)
[2021-04-24] MEDS ORDERED: FUROSEMIDE 100 MG/10ML VIAL IV ONE (00:30)
[2021-04-24] MEDS ORDERED: FUROSEMIDE 40 MG/4 ML VIAL ONE (02:16)
[2021-04-24] MEDS ORDERED: ALBUAER3 IN (13:02)
[2021-04-24] MEDS ORDERED: FURO1TAB31 PO (13:02)
[2021-04-24 17:47] LABS: BUN/Creatinine Ratio 25.4; Calcium 8.9 mg/dL (8.5-10.1); Potassium 3.8 mmol/L (3.5-5.1)
[2021-04-24 17:50] LABS: Lactic Acid w/Reflex 2.9 mmol/L (0.4-2.0)
[2021-04-24 20:30] VITALS: BP 149/66
== END 2021-04-24 20:42 | disposition home or self-care (01) ==
LOC: EDUNIT# 22:01 → EDBD 22:01 → EDSEX 22:01 → ER 22:01
DX: I11.0 Hypertensive heart disease with heart failure (principal); I50.9 Heart failure, unspecified; I25.2 Old myocardial infarction; Z90.49 Acquired absence of other specified parts of digestive tract; Z98.61 Coronary angioplasty status; Z95.0 Presence of cardiac pacemaker; Z86.73 Personal history of transient ischemic attack (TIA), and cerebral infarction without residual deficits; Z20.822 Contact with and (suspected) exposure to COVID-19
CPT/HCPCS: 36415; 71045; 80048; 80053; 83605; 83880; 84484; 85025; 85379; 87040; 87426; 93005; 96374; 99285; C9803; J1940; U0003

== ENCOUNTER 2022-09-01 13:39 | Emergency (ER) | payer MEDICAID, OTHER ==
[~2022-09-01] VITALS: Ht 149.9 cm; Wt 54.1 kg
[~2022-09-01 13:39] MED LIST changes: +ALBUAER3 IN; -DOXY-286 PO; +FURO1TAB31 PO; -LISI-716 PO; +LISI10TA34 PO
[2022-09-01 14:50] LABS: Basophils # (auto) 0.1 10 ^3/uL (0-0.2); Basophils % (auto) 1.2 % (0.0-2.0); Eosinophils # (auto) 0.3 10 ^3/uL (0-0.8); Eosinophils % (auto) 4.8 % (0.0-7.0); Hematocrit 32.8 % (36.0-46.0); Hemoglobin 11.1 g/dL (12.2-16.2); Lymphocytes # (auto) 1.6 10 ^3/uL (0.4-5.4); Lymphocytes % (auto) 22.2 % (10.0-50.0); Mean Corpuscular Hemoglobin 31.3 pg (28.0-32.0); Mean Corpuscular Hgb Conc. 33.7 g/dL (32.0-36.0); Mean Corpuscular Volume 93.1 fL (80.0-100.0); Monocytes # (auto) 0.6 10 ^3/uL (0-1.3); Monocytes % (auto) 7.9 % (0.0-12.0); Neutrophils # (auto) 4.6 10 ^3/uL (1.6-8.6); Neutrophils % (auto) 63.9 % (37.0-80.0); Nucleated Red Blood Cells % 0.1 %; Red Blood Cells 3.53 10^6/uL (4.0-5.20); Red Cell Distribution Width 13.4 % (11.8-14.3); White Blood Cell 7.2 10^3/uL (4.4-10.8)
[2022-09-01 15:08] LABS: Albumin 3.8 g/dL (3.4-5.0); Calcium 8.8 mg/dL (8.5-10.1); Potassium 3.8 mmol/L (3.5-5.1)
[2022-09-01 15:21] LABS: BUN/Creatinine Ratio 19.2 (10.0-20.0); Bilirubin, Total 0.7 mg/dL (0.2-1.0); Total Protein 7.5 g/dL (6.4-8.2)
[2022-09-01] MEDS ORDERED: IOHEXOL 350 MG/ML 100ML IJ ONE (19:09)
[2022-09-01] MEDS ORDERED: FUROSEMIDE 100 MG/10ML VIAL IV ONE (23:30)
[2022-09-02] MEDS ORDERED: CIPROFLOXACIN 400MG/200ML 200 ML IV ONE (00:30)
[2022-09-02] MEDS ORDERED: metroNIDAZOLE 500 MG TAB PO ONE (00:30)
[2022-09-02] MEDS ORDERED: CIPR-173 PO (00:35)
[2022-09-02] MEDS ORDERED: METR500T PO (00:35)
[2022-09-02 02:23] VITALS: BP 144/62
== END 2022-09-02 02:38 | disposition home or self-care (01) ==
LOC: ER 13:39
DX: I11.0 Hypertensive heart disease with heart failure (principal); I50.9 Heart failure, unspecified; E11.9 Type 2 diabetes mellitus without complications; E78.5 Hyperlipidemia, unspecified; Z86.73 Personal history of transient ischemic attack (TIA), and cerebral infarction without residual deficits; Z90.49 Acquired absence of other specified parts of digestive tract
CPT/HCPCS: 36415; 71045; 71275; 74176; 80053; 83605; 83880; 84484; 85025; 85379; 87040; 93005; 96365; 96375; 99285; J0744; J1940; Q9967

== ENCOUNTER 2024-05-15 20:21 | Inpatient (IN) | payer OTHER, MEDICAID ==
[~2024-05-15] VITALS: Ht 147.3 cm; Wt 68.0 kg
[~2024-05-15 20:21] MED LIST changes: -ATO40T PO; +ATOR-507 PO; +CIPR-173 PO; +EMPA1TAB PO; +FAMO-12 PO; +FURO40TA4 PO; +INSU100I54 SC; +ISOS1TAB28 PO; +METF-370 PO; +METO25TA93 PO; +METR500T PO; +RANO500T3 PO; +SACU1TAB7 PO
--- NOTE | 2024-05-15 20:51 | ED.PDOC ---
HPI Comments 78y F who presents to the ED for chief complaint of chest pain. Pt states she has been having chest pain for the past 3 days. Pt states the pain is substernal, constant, rating the pain 10/10, with no associated exacerbating or relieving factors. Pt has associated nausea, vomiting and headache. Pt states she went to [facility] 1 days for same complaint and states her workup was negative with normal labs and EKG. Pt states she did take 3x nitro today prior to ED arrival with some relief of her symptoms. Pt otherwise is no noted distress and denies any other symptoms at this time. Chief Complaint: Chest Pain Time Seen by MD: 20:49 Primary Care Provider: UNKNOWN Reviewed Notes: Nurses Notes Allergies: Coded Allergies: No Known Drug Allergy (Verified Allergy, Unknown, 06/26/20) Uncoded Allergies: UNKNOWN ABX (Allergy, Unknown, 12/27/17) Home Meds Active Scripts Metronidazole (Flagyl) 500 Mg Tab, 500 MG PO BID for 5 Days, #10 TAB Prov:ELSY ANTONY MD 09/02/22 Ciprofloxacin Hcl (Cipro) 500 Mg Tab, 1 TAB PO BID, #14 TAB Prov:ELSY ANTONY MD 09/02/22 Albuterol Sulfate (VENTOLIN MDI) 90 Mcg Ih, 90 MCG IN Q6HPRN PRN, #1 INH Prov:MYAH CAMPBELL MD 04/24/21 Furosemide (Lasix) 40 Mg Tab, 40 MG PO DAILY, #30 TAB Prov:MYAH CAMPBELL MD 04/24/21 Reported Medications Multiple Vitamins W/ Minerals (Centrum Silver 50+Women) 1 Tab Tab, 1 TAB PO DAILY, TAB 04/04/21 Mexiletine HCl (Mexiletine Hydrochloride) 150 Mg Cap, 150 MG PO BID, CAP 04/04/21 Cholecalciferol (VITAMIN D) 5,000 Unit Tab, 50 MCG OR DAILY, TAB 04/04/21 Nitroglycerin (NTROSTAT SUBLINGUAL) 0.4 Mg Sl, 0.4 MG SL PRN, TAB *MAY REPEAT EVERY 5 MINUTES X 3 TOTAL IF NO RELIEF, INITIATE ANALGESIC THERAPY. NOTIFY PHYSICIAN *Do not crush. 06/27/20 Magnesium Oxide (Mag-Ox) 400 Mg Tb, 400 MG PO DAILY 06/27/20 Apixaban Base (ELIQUIS) 5 Mg Tab, 5 MG PO BID 06/27/20 Sotalol Hcl (Sotalol Hcl (Af)) 80 Mg Tab, 80 MG PO BID 06/27/20 Metformin HCl (Metformin Hydrochloride) 1,000 Mg Tab, 1000 MG PO BID 06/27/20 Clopidogrel Bisulfate (Plavix) 75 Mg Tab, 75 MG PO DAILY, TAB 07/01/16 Atorvastatin Calcium (Lipitor) 40 Mg Tab, 40 MG PO HS 07/01/16 Lisinopril (Lisinopril) 10 Mg Tab, 5 MG PO DAILY 04/08/16 Information Source: Patient Mode of Arrival: Ambulatory Brought in by: self Vital Signs Vital Signs Date Time Temp Pulse Resp B/P (MAP) Pulse Ox O2 Delivery O2 Flow Rate FiO2 05/16/24 00:18 97.9 99 17 106/79 (88) 99 97.9 05/15/24 23:06 Room Air* 0 21 Physical Exam General: Awake, alert and oriented. No acute distress. Skin: Skin in warm, dry and intact. Appropriate color for ethnicity. HEENT: The head is normocephalic and atraumatic. Conjunctivae are clear without exudates or hemorrhage. Sclera is non-icteric. EOM are intact. No signs of nystagmus. Eyelids are normal in appearance without swelling or lesions. Oral mucosa is pink and moist Neck: The neck is supple with normal range of motion. No JVD. Cardiac: Heart rate and rhythm are normal. No murmurs, gallops, or rubs are auscultated. Respiratory: No signs of respiratory distress. Lung sounds are clear in all lobes bilaterally without rales, ronchi, or wheezes. Abdominal: Abdomen is soft, non-tender without distention. Bowel sounds are present and normoactive in all four quadrants. Extremities: Upper and lower extremities are atraumatic in appearance without deformity or edema. Neurological: The patient is awake, alert and oriented to person, place, and time with normal speech. Speech is clear. There is no facial asymmetry. Psychiatric: Appropriate mood and affect. Good judgement and insight. No visual or auditory hallucinations. Review of Systems: As stated in HPI Past Medical History PAST MEDICAL HISTORY: Angina, CAD, CHF, CVA, DM, High Lipids, HTN, [place], TIA Surgical History: Cholecystectomy, , Pacemaker, PTCA IMAGING TECH History: No Pertinent IMAGING TECH History Family History Family History: Reviewed,noncontributory to illness Social History Smoker: Non-Smoker Alcohol: Denies ETOH Use Drugs: Denies Drug Use Lives In: Home EKG EKG : Pulse Rate (adult): 92 [place]: Normal Cardiac Rhythm: Paced Block: None Hypertrophy: None ST: Normal Comments atrial sensed ventricular paced complexes Was a procedure done? Was a procedure done?: No CP Differential Dx Differential Diagnosis: A-fib, A-Flutter, Angina, Anxiety / Panic Attack, Atrial Dysrhythmia, Electrolyte Disorder, Pulmonary Embolus, PVC's Differential Diagnosis: HTN Essential X-Ray, Labs, Meds, VS Vital Signs Date Time Temp Pulse Resp B/P (MAP) Pulse Ox O2 Delivery O2 Flow Rate FiO2 05/16/24 00:18 97.9 99 17 106/79 (88) 99 97.9 05/15/24 23:55 99 19 106/79 05/15/24 23:25 99 19 107/79 05/15/24 23:21 91 05/15/24 23:06 92 19 99 Room Air* 0 21 05/15/24 22:57 97.9 99 17 108/70 (83) 97.9 05/15/24 21:33 82 05/15/24 20:51 92 05/15/24 20:40 98.0 91 16 126/60 (82) 99 05/15/24 20:30 92 Lab Test 05/15/24 23:55 05/15/24 21:32 05/15/24 20:46 Range/Units Troponin I High Sensitivity 848 *H 778 *H 679 *H </=34 ng/L White Blood Count 8.1 4.4-10.8 10^3/uL Red Blood Count 3.87 L 4.0-5.20 10^6/uL Hemoglobin 11.9 L 12.2-16.2 g/dL Hematocrit 37.1 36.0-46.0 % Mean Corpuscular Volume 95.9 80.0-100.0 fL Mean Corpuscular Hemoglobin 30.8 28.0-32.0 pg Mean Corpuscular Hemoglobin Concent 32.1 32.0-36.0 g/dL Red Cell Distribution Width 13.7 11.8-14.3 % Platelet Count 196 140-450 10^3/uL Mean Platelet Volume 8.7 6.9-10.8 fL Neutrophils (%) (Auto) 67.0 37.0-80.0 % Lymphocytes (%) (Auto) 22.6 10.0-50.0 % Monocytes (%) (Auto) 9.0 0.0-12.0 % Eosinophils (%) (Auto) 0.7 0.0-7.0 % Basophils (%) (Auto) 0.7 0.0-2.0 % Neutrophils # (Auto) 5.4 1.6-8.6 10 ^3/uL Lymphocytes # (Auto) 1.8 0.4-5.4 10 ^3/uL Monocytes # (Auto) 0.7 0-1.3 10 ^3/uL Eosinophils # (Auto) 0.1 0-0.8 10 ^3/uL Basophils # (Auto) 0.1 0-0.2 10 ^3/uL Nucleated Red Blood Cells 0.1 % Prothrombin Time 11.3 9.3-11.8 sec Prothrombin Time INR 1.07 0.9-1.15 Activated Partial Thromboplast Time 26.7 24.5-34.5 SEC D-Dimer, Quantitative 0.44 0.0-0.49 mg/L FEU Sodium Level 139 136-145 mmol/L Potassium Level 3.7 3.5-5.1 mmol/L Chloride Level 104 98-107 mmol/L Carbon Dioxide Level 24 20-31 mmol/L Anion Gap 11 5-15 Blood Urea Nitrogen 27 H 9-23 mg/dL Creatinine 1.47 H 0.550-1.02 mg/dL Glomerular Filtration Rate Calc 37 >90 mL/min BUN/Creatinine Ratio 18.4 10.0-20.0 Serum Glucose 141 H 74-106 mg/dL Calcium Level 9.9 8.7-10.4 mg/dL Total Bilirubin 0.3 0.2-1.0 mg/dL Aspartate Amino Transferase (AST) 18 13-40 U/L Alanine Aminotransferase (ALT) 18 7-40 U/L Alkaline Phosphatase 69 46-116 U/L B-Type Natriuretic Peptide 1814.05 0-100 pg/mL Total Protein 7.1 5.7-8.2 g/dL Albumin 4.6 3.2-4.8 g/dL Current Medications Medications (Trade) Dose Ordered Sig/Karen Route Start Time Stop Time Status Last Admin Aspirin 324 mg ONCE ONCE PO 05/15/24 20:45 05/15/24 20:55 DC 05/15/24 23:26 Morphine Sulfate 2 mg ONCE ONCE IV 05/15/24 20:45 05/15/24 20:55 DC 05/15/24 23:25 Heparin Sodium (Porcine) 3,000 units ONCE ONCE IV 05/15/24 23:48 05/15/24 23:49 DC 05/16/24 00:19 Heparin Sodium/ Dextrose 250 ml @ 6 mls/hr Q24H IV 05/15/24 22:30 05/16/24 00:20 [place] [id number] Ph: [phone] DIAGNOSTIC IMAGING Diagnostic Imaging Report : [id number] Signed PATIENT: KHANG MARTE ACCT: [id number] UNIT: [id number] : 1945 LOC: ER ROOM / BED: / AGE / SEX: 78 / F ADM STATUS: REG ER SERVICE 39 ORDERING PHYSICIAN: LENI TRIANA MD PROCEDURE(s): CXR1 - CHEST XRAY 1 VIEW REASON: cp ORDER NUMBER(s): [id number], ACCESSION NUMBER(s): [id number] CHEST RADIOGRAPH Indication: cp Technique: Single frontal view of the chest was obtained COMPARISON: September 01, 2022 FINDINGS: Lines and Tubes: Pacemaker/ AICD in the left chest with multiple cardiac leads. Lungs: Clear Pleura: No effusion. No pneumothorax. Cardiomediastinal contours: Unremarkable Bones: Unremarkable IMPRESSION: 1. No acute disease. 2. Pacemaker/ AICD in the left chest with multiple cardiac leads. ATED BY: BRIANA BUCKLEY MD DICTATED DATE/TIME: 05/15/242110 SIGNED BY: BRIANA BUCKLEY MD SIGNED DATE/TIME: 05/15/242110 CC: Time of 1ST Reevaluation: 09:33 (EKG shows, rate of 82, atrial sensed ventricular paced complexes, ) Reevaluation 1ST: Improved Patient Education/Counseling: Diagnosis, Treatment, Other (Need for admission) Family Education/Counseling: No Family Present Departure 1 Departure Time of Disposition: 22:31 Impression: Primary Impression: Chest pain Additional Impression: Non-ST elevation (NSTEMI) myocardial infarction Disposition: ADMITTED INPATIENT Condition: Stable Comments 78-year-old female reports to the emergency department with several days of chest pain. Her troponin was elevated at 679 and 778. EKG showed a paced rhythm. The case was discussed with Dr. Fletcher, cardiology who reviewed the EKG. He recommends no urgent PCI at this moment. Patient is started on heparin. Patient admitted for further treatment, evaluation and monitoring. Extensive evaluation was performed in attempt to identify or rule out: (See differential diagnosis section) The following tests were ordered, and results were reviewed by me: (See diagnostic results section) The following test were independently interpreted by me: EKG, chest x-ray I reviewed and agreed with the following test results read by other providers: Chest x-ray I reviewed the following notes from the pt's past medical encounters: Present August 22, 2022 for enteritis Additional information was gathered from interviewing the following independent historians: N/A Discussion of management or test interpretation with external physician/other qualified health nanny caregiver: Dr. Fletcher Addressed an acute or chronic illness that poses a threat to life or bodily f unction: NSTEMI Decision regarding hospitalization or escalation of hospital level of care: Risk and benefits of admission for further treatment of patient's condition was considered. Due to patient's current clinical condition, high risk of decline and poor outcome if discharged and need for further inpatient management and monitoring, patient will be admitted to the hospital. Drug therapy requiring intensive monitoring for toxicity: Heparin IV Parenteral controlled substances: Morphine IV Decision regarding elective major surgery with identified patient or procedure risk factors: N/A Decision regarding emergency major surgery: N/A Decision not to resuscitate or to de-escalate care because of poor prognosis: N/A Diagnosis or treatment significantly limited by social determinants of health: N/A Critical Care Note Critical Care Time?: Yes (35 min-critical care time only) Critical care comment: Due to a high probability of clinically significant, life threatening deterioration, the patient required my highest level of preparedness to intervene emergently and I personally spent this critical care time directly and personally managing the patient. This critical care time included obtaining a history; examining the patient; pulse oximetry; ordering and review of studies; arranging urgent treatment with development of a management plan; evaluation of patient's response to treatment; frequent reassessment; and, discussions with other providers. This critical care time was performed to assess and manage the high probability of imminent, life-threatening deterioration that could result in multi-organ failure. It was exclusive of separately billable procedures and treating other patients and teaching time. Please see my other sections and the rest of the note for further information on patient assessment and treatment. Stability Stability form required: No Heart Score Heart Score: Heart Score Response (Comments) Value History Moderate Suspicious 1 EKG Normal 0 Age >65 2 Risk Factors >3 or Hx ASHD 2 Troponin >3 x's Normal limit 2 Total 7 I personally scribed for LENI TRIANA MD ([email or web address]) on 05/15/24 at 20:51. Electronically submitted by Rosalba Cash ([email or web address]). I personally scribed for LENI TRIANA MD ([email or web address]) on 05/15/24 at 21:12. Electronically submitted by Rosalba Cash ([email or web address]). I personally scribed for LENI TRIANA MD ([email or web address]) on 05/15/24 at 21:52. Electronically submitted by Rosalba Cash ([email or web address]). I personally scribed for LENI TRIANA MD ([email or web address]) on 05/15/24 at 21:54. Electronically submitted by Rosalba Cash ([email or web address]). LENI TRIANA MD May 15, 2024 20:51
[2024-05-15 21:05] LABS: Basophils # (auto) 0.1 10 ^3/uL (0-0.2); Basophils % (auto) 0.7 % (0.0-2.0); Eosinophils # (auto) 0.1 10 ^3/uL (0-0.8); Eosinophils % (auto) 0.7 % (0.0-7.0); Hematocrit 37.1 % (36.0-46.0); Hemoglobin 11.9 g/dL (12.2-16.2); Lymphocytes # (auto) 1.8 10 ^3/uL (0.4-5.4); Lymphocytes % (auto) 22.6 % (10.0-50.0); Mean Corpuscular Hemoglobin 30.8 pg (28.0-32.0); Mean Corpuscular Hgb Conc. 32.1 g/dL (32.0-36.0); Mean Corpuscular Volume 95.9 fL (80.0-100.0); Monocytes # (auto) 0.7 10 ^3/uL (0-1.3); Neutrophils # (auto) 5.4 10 ^3/uL (1.6-8.6); Nucleated Red Blood Cells % 0.1 %; Platelet Count (auto) 196 10^3/uL (140-450); Red Blood Cells 3.87 10^6/uL (4.0-5.20); Red Cell Distribution Width 13.7 % (11.8-14.3); White Blood Cell 8.1 10^3/uL (4.4-10.8)
--- NOTE | 2024-05-15 21:13 | DVH ---
CHEST RADIOGRAPH Indication: cp Technique: Single frontal view of the chest was obtained COMPARISON: September 01, 2022 FINDINGS: Lines and Tubes: Pacemaker/ AICD in the left chest with multiple cardiac leads. Lungs: Clear Pleura: No effusion. No pneumothorax. Cardiomediastinal contours: Unremarkable Bones: Unremarkable IMPRESSION: 1. No acute disease. 2. Pacemaker/ AICD in the left chest with multiple cardiac leads.
[2024-05-15 21:22] LABS: Alanine Aminotransferase 18 U/L (7-40); Albumin 4.6 g/dL (3.2-4.8); Alkaline Phosphatase 69 U/L (46-116); Anion Gap 11 (5-15); Aspartate Aminotransferase 18 U/L (13-40); BUN/Creatinine Ratio 18.4 (10.0-20.0); Calcium 9.9 mg/dL (8.7-10.4); Carbon Dioxide 24 mmol/L (20-31); Chloride 104 mmol/L (98-107); Potassium 3.7 mmol/L (3.5-5.1); Sodium 139 mmol/L (136-145)
[2024-05-15 21:23] LABS: Bilirubin, Total 0.3 mg/dL (0.2-1.0); Total Protein 7.1 g/dL (5.7-8.2)
[2024-05-15 21:26] LABS: Blood Urea Nitrogen 27 mg/dL (9-23); Glucose 141 mg/dL (74-106)
--- NOTE | 2024-05-15 21:42 | ECG ---
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
[2024-05-15 23:05] LABS: INR 1.07 (0.9-1.15); Partial Thromboplastin Time 26.7 SEC (24.5-34.5); Prothrombin Time 11.3 sec (9.3-11.8)
[2024-05-15 23:06] VITALS: PULSE 92; RESP 19; O2SAT 99
[2024-05-15] MEDS: MORPHINE SULFATE INJ 2 MG/ml SYRG IV ONE (23:25)
[2024-05-15] MEDS: ASPirin 81 mg TAB PO ONE (23:26)
[2024-05-16] MEDS: HEPARIN SODIUM (PORCINE) 5000 UNITS/ML 1ML VIAL IV ONE ×2 (00:19→19:33)
[2024-05-16] MEDS: HEPARIN DRIP/D5W 100UNITS/ML 250 ML IV SCH ×2 (00:20→19:31)
--- NOTE | 2024-05-16 00:41 | ECG ---
[facility] Test Date: 2024-05-15 Test Time: 23:21:39 Pat Name: KHANG MARTE Department: ER Room: [address] [place] [address] Gender: F Plant Control Operator: GENNY : 1945 Requested By: EMERGENCY EMERGENCY Order Number: [id number] Reading MD: Franko Haley Measurements Intervals [place] Rate: 91 P: 77 PA: 147 QRS: 240 QRSD: 158 T: 114 QT: 389 QTc: 479 Interpretive Statements Atrial-sensed ventricular-paced complexes No further analysis attempted due to paced rhythm Baseline wander in lead(s) III Electronically Signed On 05-18-2024 10:49:24 PST by Franko Haley Please click the below link to view image of tracing.
[2024-05-16] MEDS ORDERED: NITROGLYCERIN 0.4 MG SL TAB SL PRN (01:15)
[2024-05-16] MEDS ORDERED: DEXTROSE (50%) 50ML SYRG IV PRN (01:15)
--- NOTE | 2024-05-16 01:38 | ECG ---
[facility] Test Date: 2024-05-15 Test Time: 20:30:24 Pat Name: KHANG MARTE Department: ED Room: [address] [place] [address] Gender: F Electric Arc Welder: JESSE : 1945 Requested By: EMERGENCY EMERGENCY Order Number: [id number] Reading MD: Franko Haley Measurements Intervals [place] Rate: 92 P: 85 [place]: 157 QRS: 226 QRSD: 158 T: 84 QT: 396 QTc: 490 Interpretive Statements Atrial-sensed ventricular-paced complexes No further analysis attempted due to paced rhythm Electronically Signed On 05-18-2024 10:47:11 PST by Franko Haley Please click the below link to view image of tracing.
[2024-05-16] MEDS: ONDANSETRON HCL 4 MG/2 ML VIAL IV PRN (02:35)
[2024-05-16] MEDS: ACCU-CHEK COMFORT CURVE STRIP VI SCH (05:37)
[2024-05-16] MEDS: InsuLIN REG 1unit/0.01ml Soln (100units/ml) SC SCH (05:40)
[2024-05-16 06:32] LABS: Basophils # (auto) 0.1 10 ^3/uL (0-0.2); Basophils % (auto) 0.6 % (0.0-2.0); Eosinophils # (auto) 0 10 ^3/uL (0-0.8); Eosinophils % (auto) 0.1 % (0.0-7.0); Hematocrit 37.6 % (36.0-46.0); Hemoglobin 12.2 g/dL (12.2-16.2); Lymphocytes # (auto) 0.9 10 ^3/uL (0.4-5.4); Mean Corpuscular Hemoglobin 31.5 pg (28.0-32.0); Mean Corpuscular Hgb Conc. 32.5 g/dL (32.0-36.0); Mean Corpuscular Volume 96.9 fL (80.0-100.0); Monocytes # (auto) 0.4 10 ^3/uL (0-1.3); Monocytes % (auto) 4.2 % (0.0-12.0); Neutrophils # (auto) 7.9 10 ^3/uL (1.6-8.6); Neutrophils % (auto) 85.1 % (37.0-80.0); Nucleated Red Blood Cells % 0.3 %; Platelet Count (auto) 217 10^3/uL (140-450); Red Blood Cells 3.88 10^6/uL (4.0-5.20); White Blood Cell 9.3 10^3/uL (4.4-10.8)
[2024-05-16 06:37] LABS: INR 1.11 (0.9-1.15); Prothrombin Time 11.6 sec (9.3-11.8)
[2024-05-16 07:05] LABS: Partial Thromboplastin Time 86.3 SEC (24.5-34.5)
[2024-05-16 07:22] LABS: Base Excess -6.9 mmol/L (-2.0-3.0)
[2024-05-16 07:33] VITALS: RESP 19; O2SAT 99
[2024-05-16 08:27] VITALS: PULSE 105; RESP 19; O2SAT 95
[2024-05-16 09:13] LABS: Anion Gap 15 (5-15); BUN/Creatinine Ratio 18.1 (10.0-20.0)
[2024-05-16 09:14] LABS: Blood Urea Nitrogen 28 mg/dL (9-23); Calcium 10.2 mg/dL (8.7-10.4); Carbon Dioxide 23 mmol/L (20-31); Chloride 102 mmol/L (98-107); Glucose 238 mg/dL (74-106); Sodium 140 mmol/L (136-145)
[2024-05-16 09:24] LABS: Potassium 4.3 mmol/L (3.5-5.1)
[2024-05-16] MEDS: ASPirin-EC 81 mg tab PO SCH (09:44)
[2024-05-16] MEDS: RANOLAZINE ER 500 MG TAB PO SCH (09:45)
[2024-05-16] MEDS: CLOPIDOGREL BISULFATE 75 MG TAB PO SCH (09:46)
[2024-05-16] MEDS: FUROSEMIDE 20 MG TAB PO SCH (09:48)
[2024-05-16] MEDS: SACUBITRIL-VALSARTAN 24mg/26mg TAB PO SCH (09:48)
--- NOTE | 2024-05-16 09:48 | DVHINCON2 ---
JENNIFER IVORY [facility] 05/16/24 0947: Date Seen: May 16, 2024 Referring Physician MD Lori Reason for Consultation NSTEMI History of Present Illness This is a 78-year-old female patient who presents to the emergency room with chief complaint of chest pain. She reports that the pain began approximately three days ago. She describes it as unprovoked, intermittent, sharp in nature, and left-sided with radiation to mid upper back. Associated symptoms include shortness of breath. The patient reports that she was recently seen and di scharged from [facility] yesterday but did not undergo any stress test or coronary angiogram. Initial twelve lead electrocardiogram reveals paced rhythm. Initial troponin level of 679ng/L with current peak level at 848ng/L. Significant past medical history includes coronary artery disease status post multiple PTCAs X 6 DANNY (on Plavix and Aspirin), ischemic card iomyopathy, presence of Bi-V AICD (Biotronik), hypertension, dyslipidemia, and type 2 diabetes mellitus. She reports that she sees superintendent [facility] in the outpatient setting. Past Medical History Past medical history reviewed. No other significant than mentioned above. Past Surgical History Bi-V AICD implantation on 07/02/2016 Family History: Alcoholism G8 FATHER FH: cirrhosis G8 FATHER Family history: Cardiovascular disease G8 MOTHER (IA ) Family history: Diabetes mellitus G8 MOTHER Family History Family history reviewed. Social History Denies the use of tobacco, alcohol or illicit drugs. Allergies: Coded Allergies: No Known Drug Allergy (Verified Allergy, Unknown, 06/26/20) Uncoded Allergies: UNKNOWN ABX (Allergy, Unknown, 12/27/17) Home Meds Active Scripts Metronidazole (Flagyl) 500 Mg Tab, 500 MG PO BID for 5 Days, #10 TAB Prov:ELSY ANTONY MD 09/02/22 Ciprofloxacin Hcl (Cipro) 500 Mg Tab, 1 TAB PO BID, #14 TAB Prov:ELSY ANTONY MD 09/02/22 Albuterol Sulfate (VENTOLIN MDI) 90 Mcg Ih, 90 MCG IN Q6HPRN PRN, #1 INH Prov:MYAH CAMPBELL MD 04/24/21 Furosemide (Lasix) 40 Mg Tab, 40 MG PO DAILY, #30 TAB Prov:MYAH CAMPBELL MD 04/24/21 Reported Medications Multiple Vitamins W/ Minerals (Centrum Silver 50+Women) 1 Tab Tab, 1 TAB PO DAILY, TAB 04/04/21 Mexiletine HCl (Mexiletine Hydrochloride) 150 Mg Cap, 150 MG PO BID, CAP 04/04/21 Cholecalciferol (VITAMIN D) 5,000 Unit Tab, 50 MCG OR DAILY, TAB 04/04/21 Nitroglycerin (NTROSTAT SUBLINGUAL) 0.4 Mg Sl, 0.4 MG SL PRN, TAB *MAY REPEAT EVERY 5 MINUTES X 3 TOTAL IF NO RELIEF, INITIATE ANALGESIC THERAPY. NOTIFY PHYSICIAN *Do not crush. 06/27/20 Magnesium Oxide (Mag-Ox) 400 Mg Tb, 400 MG PO DAILY 06/27/20 Apixaban Base (ELIQUIS) 5 Mg Tab, 5 MG PO BID 06/27/20 Sotalol Hcl (Sotalol Hcl (Af)) 80 Mg Tab, 80 MG PO BID 06/27/20 Metformin HCl (Metformin Hydrochloride) 1,000 Mg Tab, 1000 MG PO BID 06/27/20 Clopidogrel Bisulfate (Plavix) 75 Mg Tab, 75 MG PO DAILY, TAB 07/01/16 Atorvastatin Calcium (Lipitor) 40 Mg Tab, 40 MG PO HS 07/01/16 Lisinopril (Lisinopril) 10 Mg Tab, 5 MG PO DAILY 04/08/16 Home Meds Home medications reviewed. Current Medications Current Medications Medications (Trade) Dose Ordered Sig/Karen Route PRN Reason Start Time Stop Time Status Last Admin Heparin Sodium/ Dextrose 250 ml @ 6 mls/hr Q24H IV 05/15/24 22:30 05/16/24 00:20 Diagnostic Test (Pha) (Accu-Chek Comfort Curve T) 1 strip Q6HR 05/16/24 06:00 05/16/24 05:37 Insulin Human Regular (InsuLIN R) Q6HR SC 05/16/24 06:00 05/16/24 05:40 Dextrose 50 ml UD PRN IV Blood Sugar LESS THAN 60 05/16/24 01:15 Ondansetron HCl (Zofran) 4 mg Q4HP PRN IV NAUSEA / VOMITING 05/16/24 01:15 05/16/24 02:35 Nitroglycerin (Ntrostat Sublingual) 0.4 mg Q5MINP PRN SL FOR CHEST PAIN 05/16/24 01:15 Morphine Sulfate 2 mg Q30M PRN IV FOR CHEST PAIN 05/16/24 01:15 Aspirin (Ecotrin Enteric Coated Tablet) 81 mg DAILY PO 05/16/24 10:00 Clopidogrel Bisulfate (Plavix) 75 mg DAILY PO 05/16/24 10:00 Metoprolol Succinate (Toprol Xl) 25 mg DAILY PO 05/16/24 10:00 Sacubitril/ Valsartan (Entresto 24-26 Mg tab) 2 tab BID PO 05/16/24 10:00 Ranolazine (Ranexa ER) 500 mg BID PO 05/16/24 10:00 Atorvastatin Calcium (Lipitor) 80 mg HS PO 05/16/24 22:00 Furosemide (Lasix Tablet) 40 mg DAILY PO 05/16/24 10:00 Review of Systems Constitutional: No symptom reported Ears, Nose, & Throat: No symptom reported Eyes: No symptom reported Neurological: No symptoms reported Pulmonary/Respiratory: Shortness of breath Cardiovascular: Chest pain Gastrointestinal: No symptom reported Genitourinary: No symptom reported Musculoskeletal: No symptom reported Skin: No symptom reported Psychiatric: No symptom reported Endocrine: No symptom reported Hematologic/Lymphatic: No symptom reported Vital Signs Vital Signs Date Time Temp Pulse Resp B/P (MAP) Pulse Ox O2 Delivery O2 Flow Rate FiO2 05/16/24 08:27 105 19 95 Room Air* 0 21 05/16/24 07:35 98.4 96/66 (76) 98.4 Physical Exam General Appearance: Cooperative. Well-developed. Well-nourished. No acute dist ress. Pulmonary/Respiratory: Clear, bilateral breaths sounds. Cardiovascular/Chest: Regular rate and rhythm. Peripheral Pulses: 2+ Radial (R). 2+ Radial (L). 2+ Pedal (R). 2+ Pedal (L) Abdominal Exam: Normal bowel sounds. Ankle Exam: Negative ankle edema Lower extremities: Negative lower extremity edema Neuro/Mental Status: A/OX4, coherent. Thoughts/Psych: Normal thought pattern. Appropriate mood and affect. Good judgment and insight. Appearance: No acute distress. Skin Exam: Normal inspection. Normal color. Warm and dry. Labs/Diagnostic Data Labs Test 05/16/24 08:41 05/16/24 07:36 05/16/24 07:10 05/16/24 05:57 Range/Units POC Glucose 192 H 70-106 mg/dl Sodium Level 140 136-145 mmol/L Potassium Level 4.3 3.5-5.1 mmol/L Chloride Level 102 98-107 mmol/L Carbon Dioxide Level 23 20-31 mmol/L Anion Gap 15 5-15 Blood Urea Nitrogen 28 H 9-23 mg/dL Creatinine 1.55 H 0.550-1.02 mg/dL Glomerular Filtration Rate Calc 35 >90 mL/min BUN/Creatinine Ratio 18.1 10.0-20.0 Serum Glucose 238 H 74-106 mg/dL Calcium Level 10.2 8.7-10.4 mg/dL Blood Gas Specimen Type Arterial Blood Gas Sample Site Right brachial Blood Gas Patient Temperature 37.0 Arterial Blood Date Drawn [id number] Arterial Blood pH 7.362 7.350-7.450 Arterial Blood Partial Pressure CO2 31.5 L 32.0-45.0 mmHg Arterial Blood Partial Pressure O2 72.4 L 83.0-108.0 mmHg Arterial Blood HCO3 17.5 L 21.0-28.0 mmol/L Arterial Blood Oxygen Saturation 93.2 L 94.0-98.0 % Arterial Blood Base Excess -6.9 L -2.0-3.0 mmol/L Arterial Blood Oxyhemoglobin 92.2 L 94.0-98.0 % Arterial Blood Carboxyhemoglobin 0.6 0.5-1.5 % Arterial Blood Methemoglobin 0.5 0.0-1.5 % Ab Test N/a Blood Gas Total Hemoglobin 12.20 12.0-16.0 g/dL Blood Gas Modality Room air FiO2 % 21.0 White Blood Count 9.3 4.4-10.8 10^3/uL Red Blood Count 3.88 L 4.0-5.20 10^6/uL Hemoglobin 12.2 12.2-16.2 g/dL Hematocrit 37.6 36.0-46.0 % Mean Corpuscular Volume 96.9 80.0-100.0 fL Mean Corpuscular Hemoglobin 31.5 28.0-32.0 pg Mean Corpuscular Hemoglobin Concent 32.5 32.0-36.0 g/dL Red Cell Distribution Width 14.0 11.8-14.3 % Platelet Count 217 140-450 10^3/uL Mean Platelet Volume 9.0 6.9-10.8 fL Neutrophils (%) (Auto) 85.1 H 37.0-80.0 % Lymphocytes (%) (Auto) 10.0 10.0-50.0 % Monocytes (%) (Auto) 4.2 0.0-12.0 % Eosinophils (%) (Auto) 0.1 0.0-7.0 % Basophils (%) (Auto) 0.6 0.0-2.0 % Neutrophils # (Auto) 7.9 1.6-8.6 10 ^3/uL Lymphocytes # (Auto) 0.9 0.4-5.4 10 ^3/uL Monocytes # (Auto) 0.4 0-1.3 10 ^3/uL Eosinophils # (Auto) 0 0-0.8 10 ^3/uL Basophils # (Auto) 0.1 0-0.2 10 ^3/uL Nucleated Red Blood Cells 0.3 % Prothrombin Time 11.6 9.3-11.8 sec Prothrombin Time INR 1.11 0.9-1.15 Activated Partial Thromboplast Time 86.3 *H 24.5-34.5 SEC Test 05/15/24 23:55 05/15/24 20:46 Range/Units Troponin I High Sensitivity 848 *H </=34 ng/L D-Dimer, Quantitative 0.44 0.0-0.49 mg/L FEU Total Bilirubin 0.3 0.2-1.0 mg/dL Aspartate Amino Transferase (AST) 18 13-40 U/L Alanine Aminotransferase (ALT) 18 7-40 U/L Alkaline Phosphatase 69 46-116 U/L B-Type Natriuretic Peptide 1814.05 0-100 pg/mL Total Protein 7.1 5.7-8.2 g/dL Albumin 4.6 3.2-4.8 g/dL Assessment NSTEMI, rule out progressive coronary artery disease Coronary artery disease status post multiple PTCAs X 6 DANNY (on Plavix/ASA) Ischemic cardiomyopathy Chronic HFrEF, NYHA class III Presence of Bi-V AICD (Biotronik) Hypertension Dyslipidemia Type 2 diabetes mellitus Plan/Recommendation We will continue with the following plan/recommendations (Dr. Pereyra): * Echocardiogram to evaluate cardiac function * Chest pain protocol * STEFFANY score: 5 points * HEART score: 9 points (high score) * Heparin drip per pharmacy protocol * Continue dual antiplatelet therapy * Close Cardiac surveillance Case discussed with . Given the patient's clinical presentation, significant cardiac history, and up-trending troponin level, we will recommend for the patient undergo a coronary angiogram with left heart catheterization. The procedure was discussed with the patient in full detail including risks and benefits. Risks include but are not limited to bleeding, contrast-induced nephropathy, stroke, and even . The patient understands and is agreeable to undergo the procedure. We will schedule the patient at first availability. Thank you for allowing us to care for this patient. Please call with any questions or concerns. Critical care time spent: 42 minutes This medical document was created using an electronic medical record system with voice recognition software and computerized dictation system. Although this document has been carefully reviewed, there might still be some phonetic and typographical errors. Occasional wrong-word or ``sound-alike substitutions may have occurred due to the inherent limitations of voice recognition software. These areas are purely typographical due to imperfections of the software programs and do not reflect any compromise in the patient's medical care. Please read the chart carefully and recognize, using context, where these substitutions have occurred. Plan discussed with: Patient NYHA Physical activity limitations: Class3(Marked) ordinary (activity causes symtoms) Date of Service: May 16, 2024 Billing Provider: JENNIFER IVORY Cardiology Common Codes: 91126-ALCLWIT INP/OBS CARE (High) Cardiology Consultation Codes: 79201-[id number] CONSULT <45MIN DANNA PEREYRA MD 05/16/24 1934: Family History: Alcoholism G8 FATHER FH: cirrhosis G8 FATHER Family history: Cardiovascular disease G8 MOTHER (IA ) Family history: Diabetes mellitus G8 MOTHER Allergies: Coded Allergies: No Known Drug Allergy (Verified Allergy, Unknown, 06/26/20) Uncoded Allergies: UNKNOWN ABX (Allergy, Unknown, 12/27/17) Home Meds Active Scripts Metronidazole (Flagyl) 500 Mg Tab, 500 MG PO BID for 5 Days, #10 TAB Prov:ELSY ANTONY MD 09/02/22 Ciprofloxacin Hcl (Cipro) 500 Mg Tab, 1 TAB PO BID, #14 TAB Prov:ELSY ANTONY MD 09/02/22 Albuterol Sulfate (VENTOLIN MDI) 90 Mcg Ih, 90 MCG IN Q6HPRN PRN, #1 INH Prov:MYAH CAMPBELL MD 04/24/21 Furosemide (Lasix) 40 Mg Tab, 40 MG PO DAILY, #30 TAB Prov:MYAH CAMPBELL MD 04/24/21 Reported Medications Multiple Vitamins W/ Minerals (Centrum Silver 50+Women) 1 Tab Tab, 1 TAB PO DAILY, TAB 04/04/21 Mexiletine HCl (Mexiletine Hydrochloride) 150 Mg Cap, 150 MG PO BID, CAP 04/04/21 Cholecalciferol (VITAMIN D) 5,000 Unit Tab, 50 MCG OR DAILY, TAB 04/04/21 Nitroglycerin (NTROSTAT SUBLINGUAL) 0.4 Mg Sl, 0.4 MG SL PRN, TAB *MAY REPEAT EVERY 5 MINUTES X 3 TOTAL IF NO RELIEF, INITIATE ANALGESIC THERAPY. NOTIFY PHYSICIAN *Do not crush. 06/27/20 Magnesium Oxide (Mag-Ox) 400 Mg Tb, 400 MG PO DAILY 06/27/20 Apixaban Base (ELIQUIS) 5 Mg Tab, 5 MG PO BID 06/27/20 Sotalol Hcl (Sotalol Hcl (Af)) 80 Mg Tab, 80 MG PO BID 06/27/20 Metformin HCl (Metformin Hydrochloride) 1,000 Mg Tab, 1000 MG PO BID 06/27/20 Clopidogrel Bisulfate (Plavix) 75 Mg Tab, 75 MG PO DAILY, TAB 07/01/16 Atorvastatin Calcium (Lipitor) 40 Mg Tab, 40 MG PO HS 07/01/16 Lisinopril (Lisinopril) 10 Mg Tab, 5 MG PO DAILY 04/08/16 Plan/Recommendation pt is very high risk pt and clearly doesnt understand how severe here chf is pt was seen at [facility] and had cath showing multivessel cad and turned down for cabg, pt has hx of multiple pcis mainly to rca which i have reviewed images from [facility] pt sees dr mcginnis but goes to [facility] for most of her health problems. her trop is high bu t bp is 70s shes not a candidate for revascularization per [facility] notes , her chest pain is gone bp is low and pt is in shock, started levophed gtt cont heparin gtt cont dapt pt needs to understand her clinical situation, i explained her EF is 15% and her prognosis is poor, she was told EF was also low around 20% in past consider medical management , prognosis is guarded but poor 40 mins critical care time spent Plan discussed with: Patient, Spouse IVORYJENNIFER SANCHEZ AKBAR May 16, 2024 09:47 DANNA PEREYRA MD May 16, 2024 19:34
[2024-05-16] MEDS: METOPROLOL SUCCINATE XL 50 MG TAB PO SCH (09:49)
--- NOTE | 2024-05-16 12:04 | DVHSR ---
APPROVED REPORT EXAM: Two-dimensional and M-mode echocardiogram with Doppler and color Doppler. Blood Pressure: 96/66 mmHg INDICATION Evaluate for wall motion abnormality and EF RISK FACTORS Height: 50, Weight: 110 DIMENSIONS LVDd4.9 (3.8-5.7cm)LA (2D)3.8 (1.9-4.0cm)Aortic Root2.8 (2.0-3.7cm) LVDs4.7 (2.5-4.0cm)LA (MM) (1.9-4.0cm)Aortic Cusp Exc1.3 (1.5-2.0cm) EF (%) 10.0 (55-70%)Rt. Atrium3.6 (1.9-4.0cm)Asc. Aorta cm Mitral Valve MitralMitral Stenosis E wave1.33m/sMV Mean GR.mmHg A wave0.51m/sMV Peak GR.74mmHg E/A ratio2.62D MVAcm2 DECEL [id number] 1/2 Timems Aortic Valve Aortic ValveAortic Stenosis V10.72m/Bella Mean GR.2mmHg V20.95m/Bella Peak GR.4mmHg LVOT Diameter1.9 (1.8-2.4cm)Doppler AVA2.15cm2 Pulmonic Valve V20.69m/s Tricuspid Valve TR Velocity2.38m/s [id number] Other Information Technically limited study due to body habitus. Conclusion severe dilatd cardiomyopathy LVEF <15% moderate to severe central mitral regurg left atrium enlarged decreaed RV function pacing lead in RV noted
[2024-05-16 12:36] LABS: Magnesium 2.2 mg/dL (1.6-2.6)
[2024-05-16] MEDS: NOREPINEPHRINE 8 MG/250ML KIT 250 ML IV SCH ×2 (12:45→15:45)
[2024-05-16] MEDS: NOREPINEPHRINE 8 MG/250ML KIT 250 ML IV ONE (12:47)
[2024-05-16 18:50] LABS: INR 1.08 (0.9-1.15); Partial Thromboplastin Time 24.6 SEC (24.5-34.5); Prothrombin Time 11.4 sec (9.3-11.8)
--- NOTE | 2024-05-16 18:54 | DVH ---
CHEST RADIOGRAPH Indication: CENTRAL LINE PLACEMENT Technique: Single frontal view of the chest was obtained Comparison: None FINDINGS: Lines and Tubes: Interval placement of a right IJ approach central venous catheter terminating over t he superior cavoatrial junction. Left-sided approach biventricular lead AICD ; unchanged from prior i maging. Lungs: No focal consolidation. Pleura: No effusion. No pneumothorax. Cardiomediastinal contours: Heart size is within normal limits. Moderate atherosclerotic calcificati on and uncoiling of the aorta. Bones: No acute osseous abnormality. IMPRESSION: No acute cardiopulmonary disease. Right IJ approach central venous catheter terminating over the superior cavoatrial junction.
--- NOTE | 2024-05-16 20:41 | DVHINCON2 ---
Date of service: May 16, [address] Fletcher Reason for Consultation Acute hypoxic respiratory failure, shock History of Present Illness 78-year-old woman status post pacemaker placement who presented with a chief complaint of chest pain. She has been having chest pain for the last two days. It was substernal, constant, 10/10 in severity. No exacerbating or relieving factors. She notes nausea, vomiting, and headache. She went to [facility] one day ago with the same complaint. The workup was negative. She states she took three nitro prior to ED arrival. She was found to be in shock and initiated on pressors. Pulmonary consultation is called due to acute hypoxic respiratory failure and shock. Review of systems: 14 point review of systems is negative unless otherwise noted above. Past medical history: Systolic congestive heart failure Past surgical history: Status post TPN Medications. Reviewed. Allergies: No known drug allergies. Family history: No family history of premature CAD. No family history of lung disease Social history: Nonsmoker sudden [id number] illicit drug use. Family History: Alcoholism G8 FATHER FH: cirrhosis G8 FATHER Family history: Cardiovascular disease G8 MOTHER (SD ) Family history: Diabetes mellitus G8 MOTHER Allergies: Coded Allergies: No Known Drug Allergy (Verified Allergy, Unknown, 06/26/20) Uncoded Allergies: UNKNOWN ABX (Allergy, Unknown, 12/27/17) Home Meds Active Scripts Metronidazole (Flagyl) 500 Mg Tab, 500 MG PO BID for 5 Days, #10 TAB Prov:ELSY ANTONY MD 09/02/22 Ciprofloxacin Hcl (Cipro) 500 Mg Tab, 1 TAB PO BID, #14 TAB Prov:ELSY ANTONY MD 09/02/22 Albuterol Sulfate (VENTOLIN MDI) 90 Mcg Ih, 90 MCG IN Q6HPRN PRN, #1 INH Prov:MYAH CAMPBELL MD 04/24/21 Furosemide (Lasix) 40 Mg Tab, 40 MG PO DAILY, #30 TAB Prov:MYAH CAMPBELL MD 04/24/21 Reported Medications Multiple Vitamins W/ Minerals (Centrum Silver 50+Women) 1 Tab Tab, 1 TAB PO DAILY, TAB 04/04/21 Mexiletine HCl (Mexiletine Hydrochloride) 150 Mg Cap, 150 MG PO BID, CAP 04/04/21 Cholecalciferol (VITAMIN D) 5,000 Unit Tab, 50 MCG OR DAILY, TAB 04/04/21 Nitroglycerin (NTROSTAT SUBLINGUAL) 0.4 Mg Sl, 0.4 MG SL PRN, TAB *MAY REPEAT EVERY 5 MINUTES X 3 TOTAL IF NO RELIEF, INITIATE ANALGESIC THERAPY. NOTIFY PHYSICIAN *Do not crush. 06/27/20 Magnesium Oxide (Mag-Ox) 400 Mg Tb, 400 MG PO DAILY 06/27/20 Apixaban Base (ELIQUIS) 5 Mg Tab, 5 MG PO BID 06/27/20 Sotalol Hcl (Sotalol Hcl (Af)) 80 Mg Tab, 80 MG PO BID 06/27/20 Metformin HCl (Metformin Hydrochloride) 1,000 Mg Tab, 1000 MG PO BID 06/27/20 Clopidogrel Bisulfate (Plavix) 75 Mg Tab, 75 MG PO DAILY, TAB 07/01/16 Atorvastatin Calcium (Lipitor) 40 Mg Tab, 40 MG PO HS 07/01/16 Lisinopril (Lisinopril) 10 Mg Tab, 5 MG PO DAILY 04/08/16 Current Medications Current Medications Medications (Trade) Dose Ordered Sig/Karen Route PRN Reason Start Time Stop Time Status Last Admin Heparin Sodium/ Dextrose 250 ml @ 6 mls/hr Q24H IV 05/15/24 22:30 05/16/24 19:08 DC 05/16/24 00:20 Diagnostic Test (Pha) (Accu-Chek Comfort Curve T) 1 strip Q6HR 05/16/24 06:00 05/16/24 18:21 Insulin Human Regular (InsuLIN R) Q6HR SC 05/16/24 06:00 05/16/24 12:12 Dextrose 50 ml UD PRN IV Blood Sugar LESS THAN 60 05/16/24 01:15 Ondansetron HCl (Zofran) 4 mg Q4HP PRN IV NAUSEA / VOMITING 05/16/24 01:15 05/16/24 02:35 Nitroglycerin (Ntrostat Sublingual) 0.4 mg Q5MINP PRN SL FOR CHEST PAIN 05/16/24 01:15 Morphine Sulfate 2 mg Q30M PRN IV FOR CHEST PAIN 05/16/24 01:15 Aspirin (Ecotrin Enteric Coated Tablet) 81 mg DAILY PO 05/16/24 10:00 05/16/24 09:44 Clopidogrel Bisulfate (Plavix) 75 mg DAILY PO 05/16/24 10:00 05/16/24 09:46 Metoprolol Succinate (Toprol Xl) 25 mg DAILY PO 05/16/24 10:00 05/16/24 12:46 DC Sacubitril/ Valsartan (Entresto 24-26 Mg tab) 2 tab BID PO 05/16/24 10:00 Hold Ranolazine (Ranexa ER) 500 mg BID PO 05/16/24 10:00 05/16/24 09:45 Atorvastatin Calcium (Lipitor) 80 mg HS PO 05/16/24 22:00 Furosemide (Lasix Tablet) 40 mg DAILY PO 05/16/24 10:00 Norepinephrine Bitartrate 250 ml @ 3.75 mls/hr Q24H IV 05/16/24 12:45 05/16/24 15:46 DC 05/16/24 12:45 Norepinephrine Bitartrate 250 ml @ 3.75 mls/hr Q24H IV 05/16/24 15:45 05/16/24 15:45 Heparin Sodium/ Dextrose 250 ml @ 7 mls/hr Q24H IV 05/16/24 19:15 05/16/24 19:31 Vital Signs Vital Signs Date Time Temp Pulse Resp B/P (MAP) Pulse Ox O2 Delivery O2 Flow Rate FiO2 05/16/24 20:00 120 20 113/69 (84) 97 05/16/24 08:27 Room Air* 0 21 05/16/24 07:35 98.4 98.4 Physical Exam Gen.: Patient lying in bed in no apparent distress. On supplemental oxygen. Head: Normocephalic, atraumatic Eyes: EOMI/PERRLA. Ears: Normal hearing. Normal anatomy. Neck/trachea: Trachea midline, supple. Nose: Normal external anatomy. Mouth: Moist mucous membranes. Chest: Decreased air entry bilaterally. No wheezing or rhonchi. Cardio vascular: Pacemaker in left chest. Positive S1, positive S2. Regular rate and rhythm. Abdomen: Positive bowel sounds in all 4 quadrants. Soft, non-tender, non- distended. : Deferred. Rectal: Deferred Skin: Warm, dry. Extremities: 2+ radial pulses bilaterally. No lower extremity edema. Neuro: Awake, alert, oriented x3. No gross motor or sensory deficits. Cranial nerves II through XII intact. Gait not assessed. Labs/Diagnostic Data Labs Test 05/16/24 18:20 05/16/24 18:14 05/16/24 12:56 05/16/24 10:46 Range/Units POC Glucose 129 H 70-106 mg/dl Prothrombin Time 11.4 9.3-11.8 sec Prothrombin Time INR 1.08 0.9-1.15 Activated Partial Thromboplast Time 24.6 24.5-34.5 SEC Troponin I High Sensitivity 6123 *H </=34 ng/L Magnesium Level 2.2 1.6-2.6 mg/dL Thyroid Stimulating Hormone (TSH) 1.11 0.55-4.78 uIU/mL Test 05/16/24 07:36 05/16/24 07:10 05/16/24 05:57 05/15/24 20:46 Range/Units Sodium Level 140 136-145 mmol/L Potassium Level 4.3 3.5-5.1 mmol/L Chloride Level 102 98-107 mmol/L Carbon Dioxide Level 23 20-31 mmol/L Anion Gap 15 5-15 Blood Urea Nitrogen 28 H 9-23 mg/dL Creatinine 1.55 H 0.550-1.02 mg/dL Glomerular Filtration Rate Calc 35 >90 mL/min BUN/Creatinine Ratio 18.1 10.0-20.0 Serum Glucose 238 H 74-106 mg/dL Calcium Level 10.2 8.7-10.4 mg/dL Blood Gas Specimen Type Arterial Blood Gas Sample Site Right brachial Blood Gas Patient Temperature 37.0 Arterial Blood Date Drawn [id number] Arterial Blood pH 7.362 7.350-7.450 Arterial Blood Partial Pressure CO2 31.5 L 32.0-45.0 mmHg Arterial Blood Partial Pressure O2 72.4 L 83.0-108.0 mmHg Arterial Blood HCO3 17.5 L 21.0-28.0 mmol/L Arterial Blood Oxygen Saturation 93.2 L 94.0-98.0 % Arterial Blood Base Excess -6.9 L -2.0-3.0 mmol/L Arterial Blood Oxyhemoglobin 92.2 L 94.0-98.0 % Arterial Blood Carboxyhemoglobin 0.6 0.5-1.5 % Arterial Blood Methemoglobin 0.5 0.0-1.5 % Ab Test N/a Blood Gas Total Hemoglobin 12.20 12.0-16.0 g/dL Blood Gas Modality Room air FiO2 % 21.0 White Blood Count 9.3 4.4-10.8 10^3/uL Red Blood Count 3.88 L 4.0-5.20 10^6/uL Hemoglobin 12.2 12.2-16.2 g/dL Hematocrit 37.6 36.0-46.0 % Mean Corpuscular Volume 96.9 80.0-100.0 fL Mean Corpuscular Hemoglobin 31.5 28.0-32.0 pg Mean Corpuscular Hemoglobin Concent 32.5 32.0-36.0 g/dL Red Cell Distribution Width 14.0 11.8-14.3 % Platelet Count 217 140-450 10^3/uL Mean Platelet Volume 9.0 6.9-10.8 fL Neutrophils (%) (Auto) 85.1 H 37.0-80.0 % Lymphocytes (%) (Auto) 10.0 10.0-50.0 % Monocytes (%) (Auto) 4.2 0.0-12.0 % Eosinophils (%) (Auto) 0.1 0.0-7.0 % Basophils (%) (Auto) 0.6 0.0-2.0 % Neutrophils # (Auto) 7.9 1.6-8.6 10 ^3/uL Lymphocytes # (Auto) 0.9 0.4-5.4 10 ^3/uL Monocytes # (Auto) 0.4 0-1.3 10 ^3/uL Eosinophils # (Auto) 0 0-0.8 10 ^3/uL Basophils # (Auto) 0.1 0-0.2 10 ^3/uL Nucleated Red Blood Cells 0.3 % Hemoglobin A1c 7.2 H <5.7 % A1C D-Dimer, Quantitative 0.44 0.0-0.49 mg/L FEU Total Bilirubin 0.3 0.2-1.0 mg/dL Aspartate Amino Transferase (AST) 18 13-40 U/L Alanine Aminotransferase (ALT) 18 7-40 U/L Alkaline Phosphatase 69 46-116 U/L B-Type Natriuretic Peptide 1814.05 0-100 pg/mL Total Protein 7.1 5.7-8.2 g/dL Albumin 4.6 3.2-4.8 g/dL Assessment Impression: Acute hypoxic respiratory failure Septic shock versus cardiogenic shock Congestive heart failure, systolic, EF 50% Status post ppm Metabolic acidosis Elevated troponin Diabetes mellitus type 2 Acute kidney injury Hyperglycemia Plan: Chest x-ray imaging report reviewed. No acute opacities. No pleural effusion or pneumothorax. Right IJ central line in place. ABG reviewed. Compensated. Supplemental oxygen 2 L per minute via nasal cannula Keep O2 saturation above 92%. On Levophed 6 micrograms/minute Titrate to keep systolic blood pressure greater than 90 mmHg. Monitor renal function Monitor electrolytes Supplement as necessary. Monitor ins and outs. Accu-Cheks, insulin sliding scale On aspirin and Plavix. On Ranexa On Entresto On heparin drip due to elevated troponin Cardiology recommendations appreciated. Follow up echocardiogram. Medical management DVT prophylaxis Condition: Critical Prognosis: Poor given multiple comorbidities. Rest of plan per hospitalist and other consultants. A total of 36 minutes of critical care time was spent reviewing the patient record, examining the patient, making a diagnostic and therapeutic plan, discussing this plan with the medical personnel, following up on diagnostic studies and following the patient for clinical stability excluding any and all procedures. At least 50% of this time was spent in direct, [id number] contact. Thank you Dr. Fletcher for allowing me to participate in this patient's care. Further recommendations will depend on patient's clinical course. Please do not hesitate to contact me if you have any questions or concerns. This medical document was created using an electronic medical record system with [employer] dictation system. Although this document has been carefully reviewed, there may still be some phonetic and typographical errors. These areas are purely typographical due to imperfections of the software programs, and do not reflect any compromise in the patient's medical care. Plan discussed with: Patient, Other (OLIVIA Street MD) DORETHA NORWOOD MD May 16, 2024 20:41
--- NOTE | 2024-05-16 20:43 | DVHNC2 ---
Procedure - ULTRASOUND-GUIDED RIGHT INTERNAL JUGULAR CENTRAL VENOUS CANNULATION CPT Codes: 81865 (ultrasound guidance) 98415 (insertion of non-tunneled centrally inserted central venous catheter) 40137 (CXR interpretation) Time out time: 1814 Patient medications and allergies reviewed. The risks and benefits of the procedure and the sedation options and risk were discussed with the patient's healthcare proxy. All questions were answered and informed consent was obtained. Patient identification and proposed procedure were verified prior to the procedure by the physician, and a nurse in the patient's room. The heart rate, respiratory rate, oxygen saturations, blood pressure, adequacy of pulmonary ventilation, and response to care were monitored throughout the procedure. The physical status of the patient was reassessed after the procedure. DATE: 05/16/2024 PHYSICIAN: Doretha Blackwell PREOPERATIVE DIAGNOSIS: Shock, POSTOPERATIVE DIAGNOSIS: Shock PROCEDURE PERFORMED: Limited Ultrasound-guided Right internal jugular central line placement. ANESTHESIA: 2 mL of 1% lidocaine plain. ESTIMATED BLOOD LOSS: less than 5 mL. SPECIMENS: None. COMPLICATIONS: None. INDICATIONS FOR PROCEDURE: The patient is in need of large bore IV access for administration of fluids, including blood products and vasoactive drugs, possible transvenous cardiac pacing and CVP monitoring for hemodynamic instability. DESCRIPTION OF PROCEDURE IN DETAIL: The patient was lying in the Trendelenburg position with head turned 30 degrees away from the insertion site. The skin was thoroughly sponged with chlorhexidine and allowed to dry. All persons involved were shielded with hair nets, face masks and sterile gowns. With sterile-gloved hands the right neck area was draped with the large disposable sterile field provided in the pre-manufactured kit. The skin and subcutaneous tissues superficial to the RIGHT internal jugular vein were anesthetized with 2 mL of 1% lidocaine. The RIGHT internal jugular vein was identified on ultrasound from the angle of the mandible down into the supraclavicular fossa using the linear ultrasound probe in the transverse orientation. The carotid artery was identified and avoided utilizing color-flow. The internal jugular vein was then placed in the center of the ultrasound field and compressed for patency. A movement artifact was identified as the needle was advanced through the skin and advanced toward the vessel. A real time hyperechoic signal revealed visualization of vascular needle entry into the lumen as blood was noted to flashback in the syringe. The needle was then held in place while the guide wire was advanced. The needle was then removed. Direct visualization of guide wire location within the vein was noted on ultrasound indicating proper placement and was document in the electronic medical record chart. A skin dilator was advanced over the guidewire and removed, and the triple-lumen catheter was then advanced over the guide wire into proper position. The guide wire was removed and discarded. The ports were aspirated which showed good blood return and then carefully flushed with normal saline. The catheter was stabilized and sutured to the skin with 2-0 silk at 4 anchor points. A sterile bio-patch and dressing was placed over the catheter, including the insertion site. The patient tolerated the procedure well. A chest x-ray was ordered for position confirmation. I reviewed the image immediately after it was taken at bedside. Post-procedure chest x-ray demonstrates the central line in the superior vena and no evidence of any pneumothorax. An image recording of the procedure accompanies the chart. DORETHA BLACKWELL MD May 16, 2024 20:42
[2024-05-16] MEDS: ATORVASTATIN 20 MG TAB PO SCH (22:18)
--- NOTE | 2024-05-16 23:52 | DVHHP ---
ADMIT DATE: 05/16/2024 CHIEF COMPLAINT: Coming in for chest pain. HISTORY OF PRESENT ILLNESS: A 78-year-old female with a significant past medical history for coronary artery disease with prior 2 stents, essential hypertension, hyperlipidemia, diabetes mellitus type 2, cardiomyopathy and history of pacemaker placement, who presents to Emergency Room with new onset of chest pain. The patient says that she was seen actually yesterday on 05/15 at [facility] due to these chest pains and was discharged home with nonspecific chest pain symptoms. The patient first of all is speaking only female who is a very poor historian, a master glazier was used to communicate with the patient and the patient seems to have difficulty explaining her symptoms. The patient says that her symptoms are localized to the left chest, and radiating to her left shoulder scapular region. The patient says she has associated shortness of breath, nausea and vomiting, and she denies any diaphoresis. She says she does not know whether exertion makes her symptoms worse, but it has been intermittent in nature and comes and goes, says it reminds her of a previous incident when she had bronchitis and then she said it reminds her possibly of when she had her last MS. The patient says that she had 2 stents in the past that were re-occluded and had to be reopened back in March at [facility]. She does not have any recent upper respiratory infections. Denies cough or phlegm, but says when taking deep inspiration, also worsens her symptoms. She is unable to express what type ____ endorse any upper respiratory symptoms such as cough or phlegm and says that she does have pain as well when she takes deep inspiration. Denies any fevers or chills, diarrhea, constipation, bloody or tarry stools or any urinary frequency, urgency or burning sensation. PAST MEDICAL HISTORY: Diabetes mellitus type 2, essential hypertension, hyperlipidemia, coronary artery disease, history of stroke, cardiomyopathy with reduced ejection fractions of about 20%, CKD stage 3. PAST SURGICAL HISTORY: * Pacemaker placement. * Percutaneous angioplasty x 2 stents. SOCIAL HISTORY: Denies any tobacco, alcohol or illicit drugs. MEDICATIONS: At home per medical reconciliation. MEDICATION ALLERGIES: The patient is unable to remember an antibiotic that she is allergic to. REVIEW OF SYSTEMS: A 10-point review of system was covered with the patient and was negative with the exception to what was present in the history of present illness. PHYSICAL EXAMINATION: VITAL SIGNS: Temperature 97.9, pulse rate 99, respiratory rate of 17, blood pressure 106/79, pulse ox about 99% on room air. GENERAL: Seems to be alert, oriented to self, time, and place, not in acute distress female, sitting up in a wheelchair. HEENT: Normocephalic, atraumatic. Extraocular muscles were intact. Pupils were equally round, react to light and accommodation. Mucous membranes look moist. CARDIOVASCULAR: S1, S2 positive, regular rate and rhythm. LUNGS: Seems to be clear to auscultation bilaterally. No wheezes, rhonchi or rales. ABDOMEN: Seems to be soft, nontender, nondistended, positive bowel sounds. No guarding, rebound. EXTREMITIES: Lower extremity, about 1+ pitting edema of bilateral lower extremities up to the lower shins. No clubbing, no cyanosis. NEUROLOGIC: No focal deficits. Cranial nerves testing 2-12 overall seems to be intact. LABORATORY WORKUP: Shows a white count of 8.1, H and H of 11.9 and 37.1, platelet count of 196,000. Sodium 139, potassium 3.7, chloride 104, carbon dioxide 24, anion gap of 11, BUN of 27, creatinine 1.47 with an estimated GFR of 37, calcium 9.9, total bilirubin 0.3, AST of 18, ALT of 18, alkaline phosphatase of 69. Troponin initially 679, second troponin 778 and third troponin of 848 and BNP level 1814. D-dimer of 0.44 with INR of 1.07. IMAGING: Chest x-ray shows no acute disease. A 12-lead EKG shows atrial sensed ventricular paced complexes, ventricular rate of 92. DIAGNOSIS: [id number] myocardial infarction. SECONDARY DIAGNOSES: Diabetes mellitus type 2, cardiomyopathy, hyperlipidemia, essential hypertension and coronary artery disease. PLAN: The patient will be admitted to the medical telemetry floor for continuous cardiopulmonary monitoring. Consultation by the Emergency Room was requested with Dr. Fletcher, who recommended the patient to be placed on a heparin drip with no emergent need for cardiac catheterization. The patient will be also initiated back on her home aspirin enteric coated 81 mg a day as well as Plavix 75 mg a day. The patient apparently was seen at [facility] earlier in the day on 02/10 and had actually normal troponins at that time and was diagnosed with nonspecific cardiac chest pain and was discharged from the Emergency Room. The patient at this time seems to have intermittent chest pains and is a very poor historian and seems to have underlying NSTEMI. The patient has again been started on heparin drip, ACS protocol with aspirin, Plavix and Lipitor as well as her home metoprolol succinate 25 mg once a day has been initiated. The patient will be placed back on her Entresto home medication as well as her Lasix 40 mg a day for her underlying history of cardiomyopathy. The patient also seems to have significant history of chronic angina and does take Ranexa 500 mg twice a day, which has been resumed and also takes a long-acting nitro, which will be held at this point in time. The patient will have nitroglycerin 0.4 mg p.r.n. q. 5 minutes up to 3 doses for chest pain symptoms. The patient to have Zofran 4 mg IV p.r.n. for nausea and vomiting as well as morphine 2 mg IV p.r.n. q. 30 minutes as needed for chest pain symptoms. The patient will be maintained n.p.o. status for possibility of cardiac catheterization for tomorrow. The patient will be placed on Lipitor 80 mg once at nighttime. The patient to have CBC, BMP, lipid panel completed in the morning. The patient additionally will be placed on a.c. Accu-Cheks q. 6 hours with a low dose regular insulin sliding scale. The patient is a full code. Echocardiogram to be completed in the morning. Further recommendations will depend on patient's hospital progression. Donnell Andres MD LM/KAILEE/ORQUIDEA TID: [id number] RECEIPT: [id number]
[2024-05-17] VITALS (68 sets, daily range): BP systolic 66–124; BP diastolic 22–108; PULSE 70–127; RESP 12–29; TEMP 97.7–98.9; O2SAT 90–100
[2024-05-17 02:59] LABS: INR 1.19 (0.9-1.15); Prothrombin Time 12.4 sec (9.3-11.8)
[2024-05-17 03:08] LABS: Partial Thromboplastin Time > 139.0 SEC (24.5-34.5)
[2024-05-17] MEDS: HEPARIN DRIP/D5W 100UNITS/ML 250 ML IV SCH (03:30)
[2024-05-17 07:13] LABS: Anion Gap 13 (5-15); Chloride 106 mmol/L (98-107); Potassium 3.9 mmol/L (3.5-5.1); Sodium 139 mmol/L (136-145)
[2024-05-17 07:20] LABS: BUN/Creatinine Ratio 17.7 (10.0-20.0)
[2024-05-17 07:27] LABS: Blood Urea Nitrogen 34 mg/dL (9-23); Carbon Dioxide 20 mmol/L (20-31); Glucose 214 mg/dL (74-106)
[2024-05-17] MEDS: SODIUM CHLORIDE 0.9% 250 ML IV ONE (08:45)
[2024-05-17 09:32] LABS: Urine Bacteria None Seen /hpf (None Seen)
[2024-05-17] MEDS: SIMETHICONE 80 MG CHEWABLE TABLET PO PRN (10:03)
[2024-05-17] MEDS: ACETAMINOPHEN 325 MG TAB PO PRN (10:04)
[2024-05-17 10:36] LABS: INR 1.23 (0.9-1.15); Partial Thromboplastin Time 49.3 SEC (24.5-34.5); Prothrombin Time 12.8 sec (9.3-11.8)
[2024-05-17 12:25] LABS: Basophils # (auto) 0.1 10 ^3/uL (0-0.2); Basophils % (auto) 0.5 % (0.0-2.0); Eosinophils # (auto) 0 10 ^3/uL (0-0.8); Hematocrit 36.7 % (36.0-46.0); Hemoglobin 11.7 g/dL (12.2-16.2); Lymphocytes # (auto) 1.4 10 ^3/uL (0.4-5.4); Lymphocytes % (auto) 10.6 % (10.0-50.0); Mean Corpuscular Hemoglobin 31.1 pg (28.0-32.0); Mean Corpuscular Volume 97.4 fL (80.0-100.0); Monocytes # (auto) 1.2 10 ^3/uL (0-1.3); Monocytes % (auto) 9.5 % (0.0-12.0); Neutrophils # (auto) 10.2 10 ^3/uL (1.6-8.6); Neutrophils % (auto) 79.4 % (37.0-80.0); Nucleated Red Blood Cells % 0.1 %; Platelet Count (auto) 195 10^3/uL (140-450); Red Blood Cells 3.76 10^6/uL (4.0-5.20); Red Cell Distribution Width 14.3 % (11.8-14.3); White Blood Cell 12.8 10^3/uL (4.4-10.8)
[2024-05-17] MEDS: PANTOPRAZOLE 40 MG TAB PO SCH (12:51)
[2024-05-17] MEDS: DOBUTamine 1000MCG/ML 250 ML IV SCH (13:33)
[2024-05-17 13:45] LABS: Urine Blood Negative /uL (Negative); Urine Clarity Clear (Clear); Urine Color Yellow (Yellow); Urine Hyaline Cast FEW /lpf (0 - 2); Urine Mucus FEW (None Seen); Urine Protein, UAD Negative (Negative); Urine Squamous Epithelial Cell FEW /hpf (<5); Urine Urobilinogen Normal (Negative); Urine WBC 1 /HPF (0-5)
[2024-05-17] MEDS ORDERED: ASPI81CH49 PO (13:47)
--- NOTE | 2024-05-17 13:56 | DVHPN2 ---
Progress Note - Dictate Date Seen: May 17, 2024 Medical Necessity Reason Pt with a Central, PICC or Fol: Yes The following are medically ne: Central Line Subjective Patient denies any chest pain. Complains of LUQ discomfort that is reproducible with palpation. vital signs Vital Sign Date Time Temp Pulse Resp B/P (MAP) Pulse Ox O2 Delivery O2 Flow Rate FiO2 05/17/24 12:15 107/55 05/17/24 12:00 105 05/17/24 06:45 20 97 05/16/24 08:27 Room Air* 0 21 05/16/24 07:35 98.4 98.4 Total Intake and Output 05/16/24 05/16/24 05/17/24 15:00 23:00 07:00 Intake Total 20 ml 73.5 ml 43.0 ml Balance 20 ml 73.5 ml 43.0 ml medications Current Medications Medications Dose Ordered Sig/Karen Route Start Time Stop Time Status Last Admin Dose Admin Diagnostic Test (Pha) 1 strip Q6HR 05/16/24 06:00 05/17/24 12:26 1 STRIP Insulin Human Regular Q6HR SC 05/16/24 06:00 05/17/24 12:21 3 UNITS Dextrose 50 ml UD PRN IV 05/16/24 01:15 Ondansetron HCl 4 mg Q4HP PRN IV 05/16/24 01:15 05/16/24 20:52 4 MG Nitroglycerin 0.4 mg Q5MINP PRN SL 05/16/24 01:15 Morphine Sulfate 2 mg Q30M PRN IV 05/16/24 01:15 Aspirin 81 mg DAILY PO 05/16/24 10:00 05/17/24 10:04 81 MG Clopidogrel Bisulfate 75 mg DAILY PO 05/16/24 10:00 05/17/24 10:04 75 MG Sacubitril/ Valsartan 2 tab BID PO 05/16/24 10:00 Hold Ranolazine 500 mg BID PO 05/16/24 10:00 05/17/24 12:51 500 MG Atorvastatin Calcium 80 mg HS PO 05/16/24 22:00 05/16/24 22:18 80 MG Furosemide 40 mg DAILY PO 05/16/24 10:00 05/17/24 10:03 40 MG Norepinephrine Bitartrate 250 ml @ 3.75 mls/hr Q24H IV 05/16/24 15:45 05/17/24 12:15 14.063 MLS/HR Heparin Sodium/ Dextrose 250 ml @ 4 mls/hr Q24H IV 05/17/24 03:30 Acetaminophen 650 mg Q6HP PRN PO 05/17/24 09:15 05/17/24 10:04 650 MG Dimethicone 40 mg QIDP PRN PO 05/17/24 09:15 05/17/24 10:03 40 MG Pantoprazole Sodium 40 mg DAILY@0600 PO 05/17/24 10:00 05/17/24 12:51 40 MG Dobutamine HCl/ Dextrose 250 ml @ 0 mls/hr Q0M IV 05/17/24 13:00 objective General appearance: No acute distress Respiratory: Lungs clear to auscultation. No wheezing, crackles Cardiovascular: Sinus tachycardia. No edema Abdomen: Soft, nondistended, nontender, bowel sounds present MSK: Normal range of motion. Neuro: Alert, no neurological deficits Psych: Appropriate mood and affect. laboratory and microbiology Laboratory Tests 05/17/24 06:26 Test 05/17/24 06:26 Range/Units Serum Glucose 214 H 74-106 mg/dL Assessment/Plan 1. NSTEMI 2. Type 2 DM 3. Hypertension 4. History of CAD with multiple stents, with history of stent thrombosis 5. Cardiogenic Shock -Cardiology consulted, Dr. Fletcher. -Patient high risk for left heart cath, with multiple stents placed. Not ammenable to additional stent placements at this time. -Continue heparin drip -Continue levophed for cardiogenic shock. Patient remains on 8mcg of levophed. -Inuslin sliding scale -Protonix 40mg IV daily -Full Code Plan discussed with: Patient HAYLEE GRANADOS DO May 17, 2024 13:56
[2024-05-17] MEDS: BUMETANIDE 2.5mg/10ml (0.25 mg/ml) INJ IV ONE (14:00)
[2024-05-17 16:55] LABS: INR 1.29 (0.9-1.15); Partial Thromboplastin Time 54.7 SEC (24.5-34.5); Prothrombin Time 13.3 sec (9.3-11.8)
[2024-05-17] MEDS: metOLazone 5 MG TAB PO ONE (18:38)
--- NOTE | 2024-05-17 19:10 | DVHPN2 ---
Progress Note Date Seen: May 17, 2024 Medical Necessity Reason Pt with a Central, PICC or Fol: Yes The following are medically ne: Central Line Subjective Other Systems: pt seen , neighbor sitting with her no complaint seen with [employer] and RN pt on levophed and dobutamine reviewed her dc note, pt had Lhc at [facility] and turned down for cabg Objective vital signs Vital Sign Date Time Temp Pulse Resp B/P (MAP) Pulse Ox O2 Delivery O2 Flow Rate FiO2 05/17/24 18:38 97/66 05/17/24 18:00 17 100 Nasal Cannula* 2 28 05/17/24 16:30 108 05/17/24 14:00 98.9 98.9 Total Intake and Output 05/16/24 05/16/24 05/17/24 15:00 23:00 07:00 Intake Total 20 ml 73.5 ml 62.0 ml Balance 20 ml 73.5 ml 62.0 ml medications Current Medications Medications Dose Ordered Sig/Karen Route Start Time Stop Time Status Last Admin Dose Admin Diagnostic Test (Pha) 1 strip Q6HR 05/16/24 06:00 05/17/24 18:37 1 STRIP Insulin Human Regular Q6HR SC 05/16/24 06:00 05/17/24 18:35 6 UNITS Dextrose 50 ml UD PRN IV 05/16/24 01:15 Ondansetron HCl 4 mg Q4HP PRN IV 05/16/24 01:15 05/16/24 20:52 4 MG Nitroglycerin 0.4 mg Q5MINP PRN SL 05/16/24 01:15 Morphine Sulfate 2 mg Q30M PRN IV 05/16/24 01:15 Aspirin 81 mg DAILY PO 05/16/24 10:00 05/17/24 10:04 81 MG Clopidogrel Bisulfate 75 mg DAILY PO 05/16/24 10:00 05/17/24 10:04 75 MG Sacubitril/ Valsartan 2 tab BID PO 05/16/24 10:00 Hold Ranolazine 500 mg BID PO 05/16/24 10:00 05/17/24 12:51 500 MG Atorvastatin Calcium 80 mg HS PO 05/16/24 22:00 05/16/24 22:18 80 MG Furosemide 40 mg DAILY PO 05/16/24 10:00 05/17/24 10:03 40 MG Norepinephrine Bitartrate 250 ml @ 3.75 mls/hr Q24H IV 05/16/24 15:45 05/17/24 12:15 14.063 MLS/HR Heparin Sodium/ Dextrose 250 ml @ 4 mls/hr Q24H IV 05/17/24 03:30 Acetaminophen 650 mg Q6HP PRN PO 05/17/24 09:15 05/17/24 10:04 650 MG Dimethicone 40 mg QIDP PRN PO 05/17/24 09:15 05/17/24 10:03 40 MG Pantoprazole Sodium 40 mg DAILY@0600 PO 05/17/24 10:00 05/17/24 12:51 40 MG Dobutamine HCl/ Dextrose 250 ml @ 0 mls/hr Q0M IV 05/17/24 13:00 05/17/24 13:33 8.25 MLS/HR Examination: GENERAL:Abnormal, HEENT:Abnormal, LUNGS:Abnormal, CVS:Abnormal, ABDOMEN:Abnormal laboratory and microbiology Laboratory Tests 05/17/24 06:26 Test 05/17/24 06:26 Range/Units Serum Glucose 214 H 74-106 mg/dL Problem List/Assessment/Plan Problem List/Assessment/Plan nstemi end stage NYHA class IV hf cardiogenic shock ckd bowen tachycardia cont dobutamine gtt pt didnt respond to iv bumex try po metolazone cont levophed for now cont heparin gtt , possible dc tomorrow unfortunately, pt doesnt appear to be invasive cath candidate consider goals of care, hospice eval, if pt declines, can consider 2nd opinion gfr is 27 and likely will worsen by tomorrow given poor uop was turned down for intervention already at [facility] spoke to pt Plan discussed with: Patient My Orders My Orders Orders - DANNA PEREYRA MD Procedure Category Date Status Time Insert Martinez Catheter ELSIE 05/17/24 In Process 08:44 Dobutamine 1000mcg/Ml PHA 05/17/24 In Process (Dobutrex) 13:00 Date of Service: May 17, 2024 Billing Provider: DANNA PEREYRA MD Common Visit Codes: NOT BILLABLE DANNA PEREYRA MD May 17, 2024 19:10
--- NOTE | 2024-05-17 19:16 | DVHPN2 ---
Progress Note - Dictate Date Seen: May 17, 2024 Medical Necessity Reason Pt with a Central, PICC or Fol: Yes The following are medically ne: Central Line Subjective Patient seen and examined at bedside. Remains on supplemental oxygen Overnight events reviewed. vital signs Vital Sign Date Time Temp Pulse Resp B/P (MAP) Pulse Ox O2 Delivery O2 Flow Rate FiO2 05/17/24 18:38 97/66 05/17/24 18:00 17 100 Nasal Cannula* 2 28 05/17/24 16:30 108 05/17/24 14:00 98.9 98.9 Total Intake and Output 05/16/24 05/16/24 05/17/24 15:00 23:00 07:00 Intake Total 20 ml 73.5 ml 62.0 ml Balance 20 ml 73.5 ml 62.0 ml medications Current Medications Medications Dose Ordered Sig/Karen Route Start Time Stop Time Status Last Admin Dose Admin Diagnostic Test (Pha) 1 strip Q6HR 05/16/24 06:00 05/17/24 18:37 1 STRIP Insulin Human Regular Q6HR SC 05/16/24 06:00 05/17/24 18:35 6 UNITS Dextrose 50 ml UD PRN IV 05/16/24 01:15 Ondansetron HCl 4 mg Q4HP PRN IV 05/16/24 01:15 05/16/24 20:52 4 MG Nitroglycerin 0.4 mg Q5MINP PRN SL 05/16/24 01:15 Morphine Sulfate 2 mg Q30M PRN IV 05/16/24 01:15 Aspirin 81 mg DAILY PO 05/16/24 10:00 05/17/24 10:04 81 MG Clopidogrel Bisulfate 75 mg DAILY PO 05/16/24 10:00 05/17/24 10:04 75 MG Sacubitril/ Valsartan 2 tab BID PO 05/16/24 10:00 Hold Ranolazine 500 mg BID PO 05/16/24 10:00 05/17/24 12:51 500 MG Atorvastatin Calcium 80 mg HS PO 05/16/24 22:00 05/16/24 22:18 80 MG Furosemide 40 mg DAILY PO 05/16/24 10:00 05/17/24 10:03 40 MG Norepinephrine Bitartrate 250 ml @ 3.75 mls/hr Q24H IV 05/16/24 15:45 05/17/24 12:15 14.063 MLS/HR Heparin Sodium/ Dextrose 250 ml @ 4 mls/hr Q24H IV 05/17/24 03:30 Acetaminophen 650 mg Q6HP PRN PO 05/17/24 09:15 05/17/24 10:04 650 MG Dimethicone 40 mg QIDP PRN PO 05/17/24 09:15 05/17/24 10:03 40 MG Pantoprazole Sodium 40 mg DAILY@0600 PO 05/17/24 10:00 05/17/24 12:51 40 MG Dobutamine HCl/ Dextrose 250 ml @ 0 mls/hr Q0M IV 05/17/24 13:00 05/17/24 13:33 8.25 MLS/HR objective Gen.: Patient lying in bed in no apparent distress. On supplemental oxygen. Head: Normocephalic, atraumatic. Eyes: EOMI/PERRLA. Ears: Normal hearing. Normal anatomy. Neck/trachea: Trachea midline, supple. Nose: Normal external anatomy. Mouth: Moist mucous membranes. Chest: Decreased air entry bilaterally. No wheezing or rhonchi. Cardiovascular: Positive S1, positive S2. Regular rate and rhythm. Abdomen: Positive bowel sounds in all 4 quadrants. Soft, non-tender, non- distended. : Deferred. Rectal: Deferred. Skin: Warm, dry. Intact. Extremities: 2+ radial pulses bilaterally. No lower extremity edema. Neuro: Awake, alert, oriented x3. No gross motor or sensory deficits. Cranial nerves II through XII intact. Gait not assessed. laboratory and microbiology Laboratory Tests 05/17/24 06:26 Test 05/17/24 06:26 Range/Units Serum Glucose 214 H 74-106 mg/dL Assessment/Plan Impression: Acute hypoxic respiratory failure Septic shock versus cardiogenic shock Congestive heart failure, systolic, EF 50% Status post PPM Metabolic acidosis Elevated troponin Diabetes mellitus type 2 Acute kidney injury Hyperglycemia Events: Remains on supplemental oxygen, 2 LPM NC Taper O2 as tolerated On Levophed 7.5 micrograms/minute Titrate to keep systolic blood pressure greater than 90 mmHg. ASA/statin/Plavix + Ranexa + Entresto Cardiology recs appreciated. On heparin drip Diurese as tolerated w/ Lasix Monitor renal function Monitor electrolytes, supplement as necessary. Monitor ins and outs. Accu-Cheks, ISS. NPO. Labs and imaging reviewed. Rest of plan as noted below. Plan: Chest x-ray imaging report reviewed. No acute opacities. No pleural effusion or pneumothorax. Right IJ central line in place. ABG reviewed. Compensated. Supplemental oxygen Keep O2 saturation above 92%. On Levophed 7.5 micrograms/minute Titrate to keep systolic blood pressure greater than 90 mmHg. Monitor renal function Monitor electrolytes Supplement as necessary. Monitor ins and outs. Accu-Cheks, insulin sliding scale On aspirin and Plavix. On Ranexa On Entresto On heparin drip due to elevated troponin Cardiology recommendations appreciated. Follow up echocardiogram. Medical management DVT prophylaxis Condition: Critical Prognosis: Poor given multiple comorbidities. Rest of plan per hospitalist and other consultants. A total of 35 minutes of critical care time was spent reviewing the patient record, examining the patient, making a diagnostic and therapeutic plan, discussing this plan with the medical personnel, following up on diagnostic studies and following the patient for clinical stability excluding any and all procedures. At least 50% of this time was spent in direct, [id number] contact. Thank you Dr. Fletcher for allowing me to participate in this patient's care. Further recommendations will depend on patient's clinical course. Please do not hesitate to contact me if you have any questions or concerns. This medical document was created using an electronic medical record system with [employer] dictation system. Although this document has been carefully reviewed, there may still be some phonetic and typographical errors. These areas are purely typographical due to imperfections of the software programs, and do not reflect any compromise in the patient's medical care. Plan discussed with: Patient, Other (RN) DORETHA NORWOOD MD May 17, 2024 19:16
[2024-05-17 22:33] LABS: INR 1.36 (0.9-1.15)
[2024-05-18] VITALS (92 sets, daily range): BP systolic 81–109; BP diastolic 38–81; PULSE 68–138; RESP 13–32; TEMP 97.5–99.2; O2SAT 91–100
[2024-05-18] MEDS: NOREPINEPHRINE 8 MG/250ML KIT 250 ML IV SCH (02:30)
[2024-05-18 05:23] LABS: Basophils # (auto) 0 10 ^3/uL (0-0.2); Basophils % (auto) 0.4 % (0.0-2.0); Chloride 102 mmol/L (98-107); Eosinophils # (auto) 0 10 ^3/uL (0-0.8); Eosinophils % (auto) 0.1 % (0.0-7.0); Hematocrit 36.4 % (36.0-46.0); Hemoglobin 11.8 g/dL (12.2-16.2); Lymphocytes # (auto) 1.4 10 ^3/uL (0.4-5.4); Lymphocytes % (auto) 11.3 % (10.0-50.0); Mean Corpuscular Hemoglobin 31.4 pg (28.0-32.0); Mean Corpuscular Hgb Conc. 32.4 g/dL (32.0-36.0); Mean Corpuscular Volume 96.9 fL (80.0-100.0); Monocytes # (auto) 0.8 10 ^3/uL (0-1.3); Neutrophils # (auto) 9.8 10 ^3/uL (1.6-8.6); Neutrophils % (auto) 81.2 % (37.0-80.0); Nucleated Red Blood Cells % 0.1 %; Platelet Count (auto) 177 10^3/uL (140-450); Potassium 4.8 mmol/L (3.5-5.1); Red Blood Cells 3.75 10^6/uL (4.0-5.20); Red Cell Distribution Width 14.1 % (11.8-14.3); White Blood Cell 12.1 10^3/uL (4.4-10.8)
[2024-05-18 05:24] LABS: Anion Gap 13 (5-15); Calcium 9.4 mg/dL (8.7-10.4)
[2024-05-18 05:30] LABS: INR 1.43 (0.9-1.15); Partial Thromboplastin Time 50.5 SEC (24.5-34.5); Prothrombin Time 14.6 sec (9.3-11.8)
[2024-05-18 05:36] LABS: Blood Urea Nitrogen 37 mg/dL (9-23); Carbon Dioxide 19 mmol/L (20-31); Glucose 180 mg/dL (74-106); Sodium 134 mmol/L (136-145)
--- NOTE | 2024-05-18 06:51 | DVHPN2 ---
Progress Note Date Seen: May 18, 2024 Medical Necessity Reason Pt with a Central, PICC or Fol: Yes The following are medically ne: Central Line Subjective Review of Systems: HEENT:Normal, CVS:Normal, RESPIRATORY:Normal, GI:Normal Objective vital signs Vital Sign Date Time Temp Pulse Resp B/P (MAP) Pulse Ox O2 Delivery O2 Flow Rate FiO2 05/18/24 06:00 22 100 Nasal Cannula* 2 28 05/18/24 06:00 110 05/18/24 05:30 100/53 (69) 05/18/24 04:00 98.5 98.5 Total Intake and Output 05/17/24 05/17/24 05/18/24 15:00 23:00 07:00 Intake Total 152.673 ml 464.916 ml 308.375 ml Output Total 225 ml 120 ml Balance 152.673 ml 239.916 ml 188.375 ml medications Current Medications Medications Dose Ordered Sig/Karen Route Start Time Stop Time Status Last Admin Dose Admin Diagnostic Test (Pha) 1 strip Q6HR 05/16/24 06:00 05/18/24 05:47 1 STRIP Insulin Human Regular Q6HR SC 05/16/24 06:00 05/18/24 05:50 3 UNITS Dextrose 50 ml UD PRN IV 05/16/24 01:15 Ondansetron HCl 4 mg Q4HP PRN IV 05/16/24 01:15 05/17/24 23:29 4 MG Nitroglycerin 0.4 mg Q5MINP PRN SL 05/16/24 01:15 Morphine Sulfate 2 mg Q30M PRN IV 05/16/24 01:15 Aspirin 81 mg DAILY PO 05/16/24 10:00 05/17/24 10:04 81 MG Clopidogrel Bisulfate 75 mg DAILY PO 05/16/24 10:00 05/17/24 10:04 75 MG Sacubitril/ Valsartan 2 tab BID PO 05/16/24 10:00 Hold Ranolazine 500 mg BID PO 05/16/24 10:00 05/17/24 22:26 500 MG Atorvastatin Calcium 80 mg HS PO 05/16/24 22:00 05/17/24 22:26 80 MG Furosemide 40 mg DAILY PO 05/16/24 10:00 05/17/24 10:03 40 MG Heparin Sodium/ Dextrose 250 ml @ 4 mls/hr Q24H IV 05/17/24 03:30 Acetaminophen 650 mg Q6HP PRN PO 05/17/24 09:15 05/17/24 22:29 650 MG Dimethicone 40 mg QIDP PRN PO 05/17/24 09:15 05/17/24 10:03 40 MG Pantoprazole Sodium 40 mg DAILY@0600 PO 05/17/24 10:00 05/18/24 05:51 40 MG Dobutamine HCl/ Dextrose 250 ml @ 0 mls/hr Q0M IV 05/17/24 13:00 05/17/24 13:33 8.25 MLS/HR Norepinephrine Bitartrate 250 ml @ 0.938 mls/ hr Q24H IV 05/18/24 02:30 Examination: GENERAL:Normal, LUNGS:Normal, CVS:Abnormal, ABDOMEN:Normal laboratory and microbiology Laboratory Tests 05/18/24 05:06 Test 05/18/24 05:06 Range/Units Serum Glucose 180 H 74-106 mg/dL Problem List/Assessment/Plan Problem List/Assessment/Plan 1) NSTEMI 2) Cardiogenic shock 3) LAUREN on CKD 4) HFrEF, EF 15%, NYHA IV 5) CAD s/p previous PCIs 6) HTN 7) DM 2 plan; remains on levophed and dobutamine for vasopressor support, kidney function worsening this AM, on dual antiplatelets, echo shows EF 15%, patient had cath done at [facility] and was turned down for CABG, on diuretics however poor UOP given cardiogenic shock, recommended for hospice as per cardio thus will consult, daily labs, supportive care, will follow Plan discussed with: Other (n) DAVID MORALES MD May 18, 2024 06:51
--- NOTE | 2024-05-18 06:53 | ECG ---
[facility] Test Date: 2024-05-18 Test Time: 02:07:47 Pat Name: KHANG MARTE Department: er Room: [address] [place] [address] Gender: F [employer]: linda : 1945 Requested By: CHOCO SALAS Order Number: [id number] Reading MD: Franko Haley Measurements Intervals [place] Rate: 118 P: 76 [place]: 116 QRS: -71 QRSD: 161 T: 0 QT: 395 QTc: 554 Interpretive Statements Ventricular-paced complexes No further analysis attempted due to paced rhythm Baseline wander in lead(s) V6 Electronically Signed On 05-18-2024 12:01:21 PST by Franko Haley Please click the below link to view image of tracing.
--- NOTE | 2024-05-18 09:53 | CONS ---
Pharmacy Clinical Information: CQM HF. Patient's blood pressure is currently low (on norepinephrine drip); which is also the reason why entresto is hold. Additionally, patient has LAUREN with an elevated serum creatinine level of 2.46. Not recommended to start ACEI/ARB/ARNI, EBBB, MRA or SGLT2 at this time. KAUSHAL LAI PHARMACIST May 18, 2024 09:53
[2024-05-18 10:31] LABS: Hepatitis B Surface Antigen Negative (Negative); Hepatitis C Antibody Negative (Negative)
--- NOTE | 2024-05-18 12:55 | DVHPN2 ---
Progress Note Date Seen: May 18, 2024 Medical Necessity Reason Pt with a Central, PICC or Fol: Yes The following are medically ne: Central Line Subjective Other Systems: creat worsening poor uop despite iv bumex and po metolazone Objective vital signs Vital Sign Date Time Temp Pulse Resp B/P (MAP) Pulse Ox O2 Delivery O2 Flow Rate FiO2 05/18/24 11:51 96 05/18/24 11:51 19 99 Nasal Cannula* 2 28 05/18/24 11:13 95/55 05/18/24 08:30 98.0 98.0 Total Intake and Output 05/17/24 05/17/24 05/18/24 15:00 23:00 07:00 Intake Total 152.673 ml 464.916 ml 349.625 ml Output Total 225 ml 120 ml Balance 152.673 ml 239.916 ml 229.625 ml medications Current Medications Medications Dose Ordered Sig/Karen Route Start Time Stop Time Status Last Admin Dose Admin Diagnostic Test (Pha) 1 strip Q6HR 05/16/24 06:00 05/18/24 05:47 1 STRIP Insulin Human Regular Q6HR SC 05/16/24 06:00 05/18/24 05:50 3 UNITS Dextrose 50 ml UD PRN IV 05/16/24 01:15 Ondansetron HCl 4 mg Q4HP PRN IV 05/16/24 01:15 05/17/24 23:29 4 MG Nitroglycerin 0.4 mg Q5MINP PRN SL 05/16/24 01:15 Morphine Sulfate 2 mg Q30M PRN IV 05/16/24 01:15 Aspirin 81 mg DAILY PO 05/16/24 10:00 05/18/24 11:13 81 MG Clopidogrel Bisulfate 75 mg DAILY PO 05/16/24 10:00 05/18/24 11:13 75 MG Sacubitril/ Valsartan 2 tab BID PO 05/16/24 10:00 Hold Ranolazine 500 mg BID PO 05/16/24 10:00 05/18/24 11:14 500 MG Atorvastatin Calcium 80 mg HS PO 05/16/24 22:00 05/17/24 22:26 80 MG Furosemide 40 mg DAILY PO 05/16/24 10:00 05/18/24 11:13 40 MG Acetaminophen 650 mg Q6HP PRN PO 05/17/24 09:15 05/17/24 22:29 650 MG Dimethicone 40 mg QIDP PRN PO 05/17/24 09:15 05/17/24 10:03 40 MG Pantoprazole Sodium 40 mg DAILY@0600 PO 05/17/24 10:00 05/18/24 05:51 40 MG Dobutamine HCl/ Dextrose 250 ml @ 0 mls/hr Q0M IV 05/17/24 13:00 05/17/24 13:33 8.25 MLS/HR Norepinephrine Bitartrate 250 ml @ 0.938 mls/ hr Q24H IV 05/18/24 02:30 05/18/24 10:46 29.063 MLS/HR Examination: GENERAL:Abnormal, HEENT:Abnormal, LUNGS:Abnormal, CVS:Abnormal, ABDOMEN:Abnormal laboratory and microbiology Laboratory Tests 05/18/24 05:06 Test 05/18/24 05:06 Range/Units Serum Glucose 180 H 74-106 mg/dL Microbiology Date/Time Source Procedure Growth Status 05/17/24 09:00 Urine - Catheterized Urine Culture - Preliminary Resulted Problem List/Assessment/Plan Problem List/Assessment/Plan nstemi end stage NYHA class IV hf cardiogenic shock ckd bowen tachycardia cont dobutamine gtt pt didnt respond to iv bumex try po metolazone cont levophed for now cont heparin gtt , possible dc tomorrow unfortunately, pt doesnt appear to be invasive cath candidate consider goals of care, hospice eval, if pt declines, can consider 2nd opinion gfr is 27 and likely will worsen by tomorrow given poor uop was turned down for intervention already at [facility] spoke to pt recommend hospice otherwise pt will likely need HD in next 1-2 d ays iv bumex today Plan discussed with: Patient My Orders My Orders Orders - DANNA PEREYRA MD Procedure Category Date Status Time Dobutamine 1000mcg/Ml PHA 05/17/24 In Process (Dobutrex) 13:00 Date of Service: May 18, 2024 Billing Provider: DANNA PEREYRA MD Common Visit Codes: NOT BILLABLE DANNA PEREYRA MD May 18, 2024 12:55
[2024-05-18] MEDS: BUMETANIDE 2.5mg/10ml (0.25 mg/ml) INJ IV SCH (15:25)
--- NOTE | 2024-05-18 21:39 | DVHPN2 ---
Progress Note - Dictate Date Seen: May 18, 2024 Medical Necessity Reason Pt with a Central, PICC or Fol: Yes The following are medically ne: Central Line, Rivera Catheter Reason for rivera catheter: Strict I&O Subjective Patient seen and examined at bedside. Remains on supplemental oxygen Overnight events reviewed. vital signs Vital Sign Date Time Temp Pulse Resp B/P (MAP) Pulse Ox O2 Delivery O2 Flow Rate FiO2 05/18/24 20:43 91/44 05/18/24 18:45 115 23 100 05/18/24 17:52 Nasal Cannula* 2 28 05/18/24 16:00 98.2 98.2 Total Intake and Output 05/17/24 05/17/24 05/18/24 15:00 23:00 07:00 Intake Total 152.673 ml 464.916 ml 349.625 ml Output Total 225 ml 120 ml Balance 152.673 ml 239.916 ml 229.625 ml medications Current Medications Medications Dose Ordered Sig/Karen Route Start Time Stop Time Status Last Admin Dose Admin Diagnostic Test (Pha) 1 strip Q6HR 05/16/24 06:00 05/18/24 17:48 1 STRIP Insulin Human Regular Q6HR SC 05/16/24 06:00 05/18/24 17:47 3 UNITS Dextrose 50 ml UD PRN IV 05/16/24 01:15 Ondansetron HCl 4 mg Q4HP PRN IV 05/16/24 01:15 05/17/24 23:29 4 MG Nitroglycerin 0.4 mg Q5MINP PRN SL 05/16/24 01:15 Morphine Sulfate 2 mg Q30M PRN IV 05/16/24 01:15 Aspirin 81 mg DAILY PO 05/16/24 10:00 05/18/24 11:13 81 MG Clopidogrel Bisulfate 75 mg DAILY PO 05/16/24 10:00 05/18/24 11:13 75 MG Sacubitril/ Valsartan 2 tab BID PO 05/16/24 10:00 Hold Ranolazine 500 mg BID PO 05/16/24 10:00 05/18/24 21:19 500 MG Atorvastatin Calcium 80 mg HS PO 05/16/24 22:00 05/18/24 21:19 80 MG Acetaminophen 650 mg Q6HP PRN PO 05/17/24 09:15 05/17/24 22:29 650 MG Dimethicone 40 mg QIDP PRN PO 05/17/24 09:15 05/17/24 10:03 40 MG Pantoprazole Sodium 40 mg DAILY@0600 PO 05/17/24 10:00 05/18/24 05:51 40 MG Dobutamine HCl/ Dextrose 250 ml @ 0 mls/hr Q0M IV 05/17/24 13:00 05/18/24 20:43 2.5 MLS/HR Norepinephrine Bitartrate 250 ml @ 0.938 mls/ hr Q24H IV 05/18/24 02:30 05/18/24 20:42 30.938 MLS/HR Bumetanide 2.5 mg BIDD IV 05/18/24 13:00 05/18/24 15:25 2.5 MG objective Gen.: Patient lying in bed in no apparent distress. On supplemental oxygen. Head: Normocephalic, atraumatic. Eyes: EOMI/PERRLA. Ears: Normal hearing. Normal anatomy. Neck/trachea: Trachea midline, supple. Nose: Normal external anatomy. Mouth: Moist mucous membranes. Chest: Decreased air entry bilaterally. No wheezing or rhonchi. Cardiovascular: Positive S1, positive S2. Regular rate and rhythm. Abdomen: Positive bowel sounds in all 4 quadrants. Soft, non-tender, non- distended. : Deferred. Rectal: Deferred. Skin: Warm, dry. Intact. Extremities: 2+ radial pulses bilaterally. No lower extremity edema. Neuro: Awake, alert, oriented x3. No gross motor or sensory deficits. Cranial nerves II through XII intact. Gait not assessed. laboratory and microbiology Laboratory Tests 05/18/24 05:06 Test 05/18/24 05:06 Range/Units Serum Glucose 180 H 74-106 mg/dL Assessment/Plan Impression: Acute hypoxic respiratory failure Septic shock versus cardiogenic shock Congestive heart failure, systolic, EF 50% Status post PPM Metabolic acidosis Elevated troponin Diabetes mellitus type 2 Acute kidney injury Hyperglycemia Events: Remains on supplemental oxygen, 2 LPM NC Taper O2 as tolerated On Levophed 16 micrograms/minute Titrate to keep systolic blood pressure greater than 90 mmHg. Increased pressor requirements Dobutamine drip 2.5 mcg/min for inotropic support Stop heparin drip Medical management per Cardiology Cardiology recs appreciated. ASA/statin/Plavix + Ranexa Diurese as tolerated w/ Lasix Monitor renal function Monitor electrolytes, supplement as necessary. Monitor ins and outs. Accu-Cheks, ISS. NPO. Poor prognosis Labs and imaging reviewed. Rest of plan as noted below. Plan: Chest x-ray imaging report reviewed. No acute opacities. No pleural effusion or pneumothorax. Right IJ central line in place. ABG reviewed. Compensated. Supplemental oxygen Keep O2 saturation above 92%. On Levophed 16 micrograms/minute Titrate to keep systolic blood pressure greater than 90 mmHg. Monitor renal function Monitor electrolytes Supplement as necessary. Monitor ins and outs. Accu-Cheks, insulin sliding scale On aspirin and Plavix. On Ranexa Off Entresto Cardiology recommendations appreciated. Follow up echocardiogram. Medical management DVT prophylaxis Condition: Critical Prognosis: Poor given multiple comorbidities. Rest of plan per hospitalist and other consultants. A total of 35 minutes of critical care time was spent reviewing the patient record, examining the patient, making a diagnostic and therapeutic plan, discussing this plan with the medical personnel, following up on diagnostic studies and following the patient for clinical stability excluding any and all procedures. At least 50% of this time was spent in direct, [id number] contact. Thank you Dr. Fletcher for allowing me to participate in this patient's care. Further recommendations will depend on patient's clinical course. Please do not hesitate to contact me if you have any questions or concerns. This medical document was created using an electronic medical record system with [employer] dictation system. Although this document has been carefully reviewed, there may still be some phonetic and typographical errors. These areas are purely typographical due to imperfections of the software programs, and do not reflect any compromise in the patient's medical care. Plan discussed with: Other (OLIVIA Barrios) Critical Care Time(min): 35 DORETHA NORWOOD MD May 18, 2024 21:39
[2024-05-18] MEDS: MORPHINE SULFATE INJ 2 MG/ml SYRG IV PRN (21:41)
[2024-05-18 23:27] LABS: Chloride 99 mmol/L (98-107); Potassium 4.6 mmol/L (3.5-5.1)
[2024-05-18 23:28] LABS: Anion Gap 10 (5-15); Calcium 8.8 mg/dL (8.7-10.4); Carbon Dioxide 22 mmol/L (20-31)
[2024-05-18 23:33] LABS: BUN/Creatinine Ratio 21.1 (10.0-20.0); Magnesium 2.2 mg/dL (1.6-2.6)
[2024-05-18 23:37] LABS: Blood Urea Nitrogen 49 mg/dL (9-23); Glucose 280 mg/dL (74-106); Sodium 131 mmol/L (136-145)
[2024-05-19] VITALS (74 sets, daily range): BP systolic 69–112; BP diastolic 17–86; PULSE 65–138; RESP 10–32; TEMP 97.6–98.2; O2SAT 84–100
[2024-05-19 04:15] LABS: Basophils # (auto) 0 10 ^3/uL (0-0.2); Basophils % (auto) 0.2 % (0.0-2.0); Eosinophils # (auto) 0 10 ^3/uL (0-0.8); Eosinophils % (auto) 0.1 % (0.0-7.0); Hematocrit 33.8 % (36.0-46.0); Hemoglobin 11.2 g/dL (12.2-16.2); Lymphocytes # (auto) 0.9 10 ^3/uL (0.4-5.4); Lymphocytes % (auto) 9.9 % (10.0-50.0); Mean Corpuscular Hemoglobin 31.5 pg (28.0-32.0); Mean Corpuscular Volume 95.3 fL (80.0-100.0); Monocytes # (auto) 0.5 10 ^3/uL (0-1.3); Monocytes % (auto) 5.4 % (0.0-12.0); Neutrophils # (auto) 7.9 10 ^3/uL (1.6-8.6); Neutrophils % (auto) 84.4 % (37.0-80.0); Nucleated Red Blood Cells % 0.1 %; Platelet Count (auto) 179 10^3/uL (140-450); Red Blood Cells 3.54 10^6/uL (4.0-5.20); Red Cell Distribution Width 14.1 % (11.8-14.3); White Blood Cell 9.4 10^3/uL (4.4-10.8)
--- NOTE | 2024-05-19 06:05 | DVH ---
EXAM: XR Chest, 1 View CLINICAL INDICATION: PACER TECHNIQUE: Frontal view of the chest. COMPARISON: XY CHEST XRAY 1 VIEW on DOS: 05/16/24, XY CHEST XRAY 1 VIEW on DOS: 05/15/24, XY CHEST PO RTABLE on DOS: 09/01/22, CHEST PORTABLE on DOS: 04/23/21, CHEST PORTABLE on DOS: 04/04/21 FINDINGS: LUNGS AND PLEURAL SPACES: Mild congestive heart failure. HEART: Unremarkable. No cardiomegaly. MEDIASTINUM: Unremarkable. Normal mediastinal contour. BONES/JOINTS: Unremarkable. No acute fracture. TUBES, LINES AND DEVICES: Status post left-sided cardiac pacemaker placement with atrial ventricula r leads. No pneumothorax. Stable right IJ venous catheter. OTHER FINDINGS: . . . .. IMPRESSION: 1. Mild congestive heart failure. 2. Status post left-sided cardiac pacemaker placement with atrial ventricular leads. No pneumothorax .
--- NOTE | 2024-05-19 06:29 | DVHPN2 ---
Progress Note Date Seen: May 19, 2024 Medical Necessity Reason Pt with a Central, PICC or Fol: Yes The following are medically ne: Central Line, Rivera Catheter Reason for rivera catheter: Strict I&O Subjective Patient reports: No new complaints Objective vital signs Vital Sign Date Time Temp Pulse Resp B/P (MAP) Pulse Ox O2 Delivery O2 Flow Rate FiO2 05/19/24 05:00 83/47 05/19/24 04:00 122 05/19/24 04:00 22 97 Nasal Cannula* 2 28 05/18/24 22:00 98.2 98.2 Total Intake and Output 05/18/24 05/18/24 05/19/24 15:00 23:00 07:00 Intake Total 306.00 ml 1053.376 ml 154.7 ml Output Total 450 ml Balance 306.00 ml 603.376 ml 154.7 ml medications Current Medications Medications Dose Ordered Sig/Karen Route Start Time Stop Time Status Last Admin Dose Admin Diagnostic Test (Pha) 1 strip Q6HR 05/16/24 06:00 05/19/24 00:07 1 STRIP Insulin Human Regular Q6HR SC 05/16/24 06:00 05/19/24 00:07 4 UNITS Dextrose 50 ml UD PRN IV 05/16/24 01:15 Ondansetron HCl 4 mg Q4HP PRN IV 05/16/24 01:15 05/17/24 23:29 4 MG Nitroglycerin 0.4 mg Q5MINP PRN SL 05/16/24 01:15 Morphine Sulfate 2 mg Q30M PRN IV 05/16/24 01:15 05/18/24 21:41 2 MG Aspirin 81 mg DAILY PO 05/16/24 10:00 05/18/24 11:13 81 MG Clopidogrel Bisulfate 75 mg DAILY PO 05/16/24 10:00 05/18/24 11:13 75 MG Sacubitril/ Valsartan 2 tab BID PO 05/16/24 10:00 Hold Ranolazine 500 mg BID PO 05/16/24 10:00 05/18/24 21:19 500 MG Atorvastatin Calcium 80 mg HS PO 05/16/24 22:00 05/18/24 21:19 80 MG Acetaminophen 650 mg Q6HP PRN PO 05/17/24 09:15 05/17/24 22:29 650 MG Dimethicone 40 mg QIDP PRN PO 05/17/24 09:15 05/17/24 10:03 40 MG Pantoprazole Sodium 40 mg DAILY@0600 PO 05/17/24 10:00 05/18/24 05:51 40 MG Dobutamine HCl/ Dextrose 250 ml @ 0 mls/hr Q0M IV 05/17/24 13:00 05/18/24 20:43 8.7 MLS/HR Norepinephrine Bitartrate 250 ml @ 0.938 mls/ hr Q24H IV 05/18/24 02:30 05/19/24 04:32 31.875 MLS/HR Bumetanide 2.5 mg BIDD IV 05/18/24 13:00 05/18/24 15:25 2.5 MG Examination: GENERAL:Normal, LUNGS:Normal, LUNGS:Abnormal, CVS:Abnormal laboratory and microbiology Laboratory Tests 05/19/24 03:00 05/18/24 22:50 Test 05/18/24 22:50 Range/Units Serum Glucose 280 H 74-106 mg/dL Problem List/Assessment/Plan Problem List/Assessment/Plan 1) NSTEMI 2) Cardiogenic shock 3) LAUREN on CKD 4) HFrEF, EF 15%, NYHA IV 5) CAD s/p previous PCIs 6) HTN 7) DM 2 plan; remains on levophed and dobutamine for vasopressor support, kidney function about the same this AM, on dual antiplatelets, echo shows EF 15%, patient had cath done at [facility] and was turned down for CABG, on diuretics however poor UOP given cardiogenic shock, recommended for hospice as per cardio thus will consult hospice, i spoke to the eldest son Manpreet yesterday and discussed her poor EF and recommendations by cardio for hospice eval however at this time the son and the rest of the family would like to keep her a full code and attempt to wean the vasopressors, they understand that she may not come off the vasopressors given her low EF state but at this time they do not want to make any changes in care and will discuss amongst family how to proceed IF she does not come off the vasopressor support, daily labs, supportive care, will follow, full code, treasury consultant input appreciated Plan discussed with: DAVID Steele MD May 19, 2024 06:29
[2024-05-19] MEDS: NOREPINEPHRINE BITARTRATE 32 MG in SODIUM CHL 0.9% 218 ML IV SCH (08:48)
[2024-05-19] MEDS ORDERED: DOPamine 1600MCG/ML D5W 250 ML IV SCH (09:30)
--- NOTE | 2024-05-19 11:16 | ECG ---
[facility] Test Date: 2024-05-18 Test Time: 22:35:27 Pat Name: KHANG MARTE Department: Room: [address] [place] [address] A Gender: F [employer] Lead: Senthil NICE : 1945 Requested By: ANA MIMS Order Number: [id number] Reading MD: Franko Haley Measurements Intervals [place] Rate: 122 P: -55 MI: 118 QRS: 153 QRSD: 86 T: -72 QT: 364 QTc: 518 Interpretive Statements Demand pacemaker, interpretation is based on intrinsic rhythm Undetermined rhythm Right axis deviation Pulmonary disease pattern Possible Right ventricular hypertrophy Septal infarct , age undetermined Marked ST abnormality, possible inferior subendocardial injury Marked ST abnormality, possible anterolateral subendocardial injury Electronically Signed On 05-22-2024 8:12:24 PST by Franko Haley Please click the below link to view image of tracing.
[2024-05-19] MEDS: VASOPRESSIN 20 UNITS in SODIUM CHL 0.9% 99 ML IV SCH (14:15)
[2024-05-19] MEDS: DOPamine 1600MCG/ML D5W 250 ML IV SCH (14:22)
[2024-05-19] MEDS: BUMETANIDE 2.5mg/10ml (0.25 mg/ml) INJ IV ONE (14:35)
--- NOTE | 2024-05-19 14:50 | DVHPN2 ---
Progress Note Date Seen: May 19, 2024 Medical Necessity Reason Pt with a Central, PICC or Fol: Yes The following are medically ne: Central Line, Rivera Catheter Reason for rivera catheter: Strict I&O Subjective Patient reports: Feels worse Other Systems: pt declining spoke to RN no family at bedside read prmary note Objective vital signs Vital Sign Date Time Temp Pulse Resp B/P (MAP) Pulse Ox O2 Delivery O2 Flow Rate FiO2 05/19/24 14:45 114 15 102/57 (72) 94 05/19/24 14:00 Nasal Cannula* 2 28 05/19/24 12:00 98.0 98.0 Total Intake and Output 05/18/24 05/18/24 05/19/24 15:00 23:00 07:00 Intake Total 306.00 ml 1053.376 ml 867.813 ml Output Total 450 ml 375 ml Balance 306.00 ml 603.376 ml 492.813 ml medications Current Medications Medications Dose Ordered Sig/Karen Route Start Time Stop Time Status Last Admin Dose Admin Diagnostic Test (Pha) 1 strip Q6HR 05/16/24 06:00 05/19/24 11:41 1 STRIP Insulin Human Regular Q6HR SC 05/16/24 06:00 05/19/24 11:41 3 UNITS Dextrose 50 ml UD PRN IV 05/16/24 01:15 Ondansetron HCl 4 mg Q4HP PRN IV 05/16/24 01:15 05/17/24 23:29 4 MG Nitroglycerin 0.4 mg Q5MINP PRN SL 05/16/24 01:15 Morphine Sulfate 2 mg Q30M PRN IV 05/16/24 01:15 05/18/24 21:41 2 MG Aspirin 81 mg DAILY PO 05/16/24 10:00 05/19/24 10:29 81 MG Clopidogrel Bisulfate 75 mg DAILY PO 05/16/24 10:00 05/19/24 10:28 75 MG Sacubitril/ Valsartan 2 tab BID PO 05/16/24 10:00 Hold Ranolazine 500 mg BID PO 05/16/24 10:00 05/19/24 10:28 500 MG Atorvastatin Calcium 80 mg HS PO 05/16/24 22:00 05/18/24 21:19 80 MG Acetaminophen 650 mg Q6HP PRN PO 05/17/24 09:15 05/17/24 22:29 650 MG Dimethicone 40 mg QIDP PRN PO 05/17/24 09:15 05/17/24 10:03 40 MG Pantoprazole Sodium 40 mg DAILY@0600 PO 05/17/24 10:00 05/19/24 06:05 40 MG Bumetanide 2.5 mg BIDD IV 05/18/24 13:00 05/18/24 15:25 2.5 MG Norepinephrine Bitartrate 32 mg/ Sodium Chloride 250 ml @ 0.938 mls/ hr Q24H IV 05/19/24 08:15 05/19/24 08:48 11.25 MLS/HR Vasopressin 20 units/Sodium Chloride 100 ml @ 9 mls/hr Q11H7M IV 05/19/24 14:15 Dopamine HCl/ Dextrose 250 ml @ 4.478 mls/ hr Q24H IV 05/19/24 14:15 05/19/24 14:22 4.478 MLS/HR Examination: GENERAL:Abnormal, HEENT:Abnormal, LUNGS:Abnormal, CVS:Abnormal, ABDOMEN:Abnormal laboratory and microbiology Laboratory Tests 05/19/24 03:00 05/18/24 22:50 Test 05/18/24 22:50 Range/Units Serum Glucose 280 H 74-106 mg/dL Microbiology Date/Time Source Procedure Growth Status 05/17/24 17:14 Nose MRSA Screen - Final Complete 05/17/24 09:00 Urine - Catheterized Urine Culture - Final Complete Problem List/Assessment/Plan Problem List/Assessment/Plan nstemi end stage NYHA class IV hf cardiogenic shock ckd bowen tachycardia cont dobutamine gtt pt didnt respond to iv bumex try po metolazone cont levophed for now dc heparin unfortunately, pt doesnt appear to be invasive cath candidate consider goals of care, hospice eval, if pt declines, can consider 2nd opinion gfr is 27 and likely will worsen by tomorrow given poor uop was turned down for intervention already at [facility] spoke to pt dc dobutamine start dopamine gtt cont bumex dont hold at this time may meggan amio gtt recommend hospice pt has very poor prognosis Plan discussed with: Patient, Other (rn) My Orders My Orders Orders - DANNA PEREYRA MD Procedure Category Date Status Time Sodium Chl 0.9% PHA 05/19/24 In Process (So... W/Vasopressin 14:15 Dopamine 1600mcg/Ml PHA 05/19/24 In Process D5W 14:15 Date of Service: May 19, 2024 Billing Provider: DANNA PEREYRA MD Common Visit Codes: NOT BILLABLE DANNA PEREYRA MD May 19, 2024 14:50
[2024-05-19] MEDS: METOCLOPRAMIDE HCL 5MG/ml INJ 2ml VIAL IV PRN (15:28)
[2024-05-19] MEDS: AMIODARONE 360mg/200mL PREMIX 200 ML IV ONE (15:59)
[2024-05-19] MEDS: AMIODARONE BOLUS KIT 100 ML IV ONE (15:59)
--- NOTE | 2024-05-19 20:58 | DVHPN2 ---
Progress Note - Dictate Date Seen: May 19, 2024 Medical Necessity Reason Pt with a Central, PICC or Fol: Yes The following are medically ne: Central Line, Rivera Catheter Reason for rivera catheter: Strict I&O Subjective Patient seen and examined at bedside. Remains on supplemental oxygen Overnight events reviewed. vital signs Vital Sign Date Time Temp Pulse Resp B/P (MAP) Pulse Ox O2 Delivery O2 Flow Rate FiO2 05/19/24 19:00 71 22 100/52 (68) 92 05/19/24 18:00 Nasal Cannula* 4 36 05/19/24 16:00 98.2 98.2 Total Intake and Output 05/18/24 05/18/24 05/19/24 15:00 23:00 07:00 Intake Total 306.00 ml 1053.376 ml 867.813 ml Output Total 450 ml 375 ml Balance 306.00 ml 603.376 ml 492.813 ml medications Current Medications Medications Dose Ordered Sig/Karen Route Start Time Stop Time Status Last Admin Dose Admin Diagnostic Test (Pha) 1 strip Q6HR 05/16/24 06:00 05/19/24 18:43 1 STRIP Insulin Human Regular Q6HR SC 05/16/24 06:00 05/19/24 17:17 8 UNITS Dextrose 50 ml UD PRN IV 05/16/24 01:15 Nitroglycerin 0.4 mg Q5MINP PRN SL 05/16/24 01:15 Morphine Sulfate 2 mg Q30M PRN IV 05/16/24 01:15 05/18/24 21:41 2 MG Aspirin 81 mg DAILY PO 05/16/24 10:00 05/19/24 10:29 81 MG Clopidogrel Bisulfate 75 mg DAILY PO 05/16/24 10:00 05/19/24 10:28 75 MG Sacubitril/ Valsartan 2 tab BID PO 05/16/24 10:00 Hold Ranolazine 500 mg BID PO 05/16/24 10:00 05/19/24 10:28 500 MG Atorvastatin Calcium 80 mg HS PO 05/16/24 22:00 05/18/24 21:19 80 MG Acetaminophen 650 mg Q6HP PRN PO 05/17/24 09:15 05/19/24 16:43 650 MG Dimethicone 40 mg QIDP PRN PO 05/17/24 09:15 05/17/24 10:03 40 MG Pantoprazole Sodium 40 mg DAILY@0600 PO 05/17/24 10:00 05/19/24 06:05 40 MG Bumetanide 2.5 mg BIDD IV 05/18/24 13:00 05/19/24 18:43 2.5 MG Norepinephrine Bitartrate 32 mg/ Sodium Chloride 250 ml @ 0.938 mls/ hr Q24H IV 05/19/24 08:15 05/19/24 08:48 11.25 MLS/HR Vasopressin 20 units/Sodium Chloride 100 ml @ 9 mls/hr Q11H7M IV 05/19/24 14:15 Dopamine HCl/ Dextrose 250 ml @ 4.478 mls/ hr Q24H IV 05/19/24 14:15 05/19/24 14:22 4.478 MLS/HR Metoclopramide HCl 5 mg Q8HPRN PRN IV 05/19/24 15:15 05/19/24 15:28 5 MG objective Gen.: Patient lying in bed in no apparent distress. On supplemental oxygen. Head: Normocephalic, atraumatic. Eyes: EOMI/PERRLA. Ears: Normal hearing. Normal anatomy. Neck/trachea: Trachea midline, supple. Nose: Normal external anatomy. Mouth: Moist mucous membranes. Chest: Decreased air entry bilaterally. No wheezing or rhonchi. Cardiovascular: Positive S1, positive S2. Regular rate and rhythm. Abdomen: Positive bowel sounds in all 4 quadrants. Soft, non-tender, non- distended. : Deferred. Rectal: Deferred. Skin: Warm, dry. Intact. Extremities: 2+ radial pulses bilaterally. No lower extremity edema. Neuro: Awake, alert, oriented x3. No gross motor or sensory deficits. Cranial nerves II through XII intact. Gait not assessed. laboratory and microbiology Laboratory Tests 05/19/24 03:00 05/18/24 22:50 Test 05/18/24 22:50 Range/Units Serum Glucose 280 H 74-106 mg/dL Assessment/Plan Impression: Acute hypoxic respiratory failure Septic shock versus cardiogenic shock Congestive heart failure, systolic, EF 50% Status post PPM Metabolic acidosis Elevated troponin Diabetes mellitus type 2 Acute kidney injury Hyperglycemia Events: Remains on supplemental oxygen, 4 LPM NC Taper O2 as tolerated Increased O2 requirements On Levophed 27 micrograms/minute Titrate to keep systolic blood pressure greater than 90 mmHg. Increased pressor requirements Head of bed elevation Aspiration precautions Discontinued heparin drip Medical management per Cardiology Cardiology recs appreciated. ASA/Plavix + Ranexa Incentive spirometry Diurese as tolerated w/ Bumex Monitor renal function Monitor electrolytes, supplement as necessary. Monitor ins and outs. Accu-Cheks, ISS. NPO. Poor prognosis Labs and imaging reviewed. Rest of plan as noted below. Plan: Chest x-ray imaging report reviewed. No acute opacities. No pleural effusion or pneumothorax. Right IJ central line in place. ABG reviewed. Compensated. Supplemental oxygen Keep O2 saturation above 92%. On Levophed 27 micrograms/minute Titrate to keep systolic blood pressure greater than 90 mmHg. Monitor renal function Monitor electrolytes Supplement as necessary. Monitor ins and outs. Accu-Cheks, insulin sliding scale On aspirin and Plavix. On Ranexa Off Entresto Cardiology recommendations appreciated. Follow up echocardiogram. Medical management DVT prophylaxis Condition: Critical Prognosis: Poor given multiple comorbidities. Rest of plan per hospitalist and other consultants. A total of 35 minutes of critical care time was spent reviewing the patient record, examining the patient, making a diagnostic and therapeutic plan, discussing this plan with the medical personnel, following up on diagnostic studies and following the patient for clinical stability excluding any and all procedures. At least 50% of this time was spent in direct, [id number] contact. Thank you Dr. Fletcher for allowing me to participate in this patient's care. Further recommendations will depend on patient's clinical course. Please do not hesitate to contact me if you have any questions or concerns. This medical document was created using an electronic medical record system with [employer] dictation system. Although this document has been carefully reviewed, there may still be some phonetic and typographical errors. These areas are purely typographical due to imperfections of the software programs, and do not reflect any compromise in the patient's medical care. Plan discussed with: Other (OLIVIA Barrios) Critical Care Time(min): 35 DORETHA NORWOOD MD May 19, 2024 20:58
[2024-05-19] MEDS: AMIODARONE 360mg/200mL PREMIX 200 ML IV SCH (21:33)
[2024-05-20] VITALS (99 sets, daily range): BP systolic 80–123; BP diastolic 17–78; PULSE 70–103; RESP 12–31; TEMP 97.9–98.9; O2SAT 70–100
[2024-05-20 03:46] LABS: Basophils # (auto) 0 10 ^3/uL (0-0.2); Basophils % (auto) 0.3 % (0.0-2.0); Eosinophils # (auto) 0 10 ^3/uL (0-0.8); Eosinophils % (auto) 0.3 % (0.0-7.0); Hemoglobin 11.5 g/dL (12.2-16.2); Lymphocytes # (auto) 0.4 10 ^3/uL (0.4-5.4); Lymphocytes % (auto) 5.3 % (10.0-50.0); Mean Corpuscular Hemoglobin 31.7 pg (28.0-32.0); Mean Corpuscular Hgb Conc. 32.9 g/dL (32.0-36.0); Mean Corpuscular Volume 96.3 fL (80.0-100.0); Monocytes # (auto) 0.4 10 ^3/uL (0-1.3); Monocytes % (auto) 4.4 % (0.0-12.0); Neutrophils # (auto) 7.3 10 ^3/uL (1.6-8.6); Neutrophils % (auto) 89.7 % (37.0-80.0); Nucleated Red Blood Cells % 0.4 %; Platelet Count (auto) 181 10^3/uL (140-450); Red Blood Cells 3.63 10^6/uL (4.0-5.20); Red Cell Distribution Width 13.9 % (11.8-14.3); White Blood Cell 8.1 10^3/uL (4.4-10.8)
[2024-05-20 03:47] LABS: Anion Gap 16 (5-15)
[2024-05-20 03:48] LABS: Calcium 9.1 mg/dL (8.7-10.4)
[2024-05-20 03:53] LABS: BUN/Creatinine Ratio 20.4 (10.0-20.0)
[2024-05-20 03:56] LABS: Blood Urea Nitrogen 55 mg/dL (9-23); Carbon Dioxide 18 mmol/L (20-31); Chloride 98 mmol/L (98-107); Glucose 275 mg/dL (74-106); Sodium 132 mmol/L (136-145)
--- NOTE | 2024-05-20 06:50 | DVHPN2 ---
Progress Note Date Seen: May 20, 2024 Medical Necessity Reason Pt with a Central, PICC or Fol: Yes The following are medically ne: Central Line, Rivera Catheter Reason for rivera catheter: Strict I&O Subjective Patient reports: No new complaints Review of Systems: HEENT:Normal, CVS:Abnormal, RESPIRATORY:Normal, GI:Normal Objective vital signs Vital Sign Date Time Temp Pulse Resp B/P (MAP) Pulse Ox O2 Delivery O2 Flow Rate FiO2 05/20/24 06:27 85/35 05/20/24 05:00 83 19 05/20/24 04:45 96 05/20/24 04:00 Oxymizer 11 N/A 05/20/24 00:00 98.9 98.9 Total Intake and Output 05/19/24 05/19/24 05/20/24 15:00 23:00 07:00 Intake Total 184.412 ml 772.363 ml 596.6 ml Output Total 275 ml 175 ml Balance 184.412 ml 497.363 ml 421.6 ml medications Current Medications Medications Dose Ordered Sig/Karen Route Start Time Stop Time Status Last Admin Dose Admin Diagnostic Test (Pha) 1 strip Q6HR 05/16/24 06:00 05/20/24 05:44 1 STRIP Insulin Human Regular Q6HR SC 05/16/24 06:00 05/20/24 05:55 4 UNITS Dextrose 50 ml UD PRN IV 05/16/24 01:15 Nitroglycerin 0.4 mg Q5MINP PRN SL 05/16/24 01:15 Morphine Sulfate 2 mg Q30M PRN IV 05/16/24 01:15 05/18/24 21:41 2 MG Aspirin 81 mg DAILY PO 05/16/24 10:00 05/19/24 10:29 81 MG Clopidogrel Bisulfate 75 mg DAILY PO 05/16/24 10:00 05/19/24 10:28 75 MG Sacubitril/ Valsartan 2 tab BID PO 05/16/24 10:00 Hold Ranolazine 500 mg BID PO 05/16/24 10:00 05/19/24 21:32 500 MG Atorvastatin Calcium 80 mg HS PO 05/16/24 22:00 05/19/24 21:32 80 MG Acetaminophen 650 mg Q6HP PRN PO 05/17/24 09:15 05/19/24 22:43 650 MG Dimethicone 40 mg QIDP PRN PO 05/17/24 09:15 05/20/24 03:03 40 MG Pantoprazole Sodium 40 mg DAILY@0600 PO 05/17/24 10:00 05/20/24 05:44 40 MG Bumetanide 2.5 mg BIDD IV 05/18/24 13:00 05/20/24 05:44 2.5 MG Norepinephrine Bitartrate 32 mg/ Sodium Chloride 250 ml @ 0.938 mls/ hr Q24H IV 05/19/24 08:15 05/20/24 02:05 13.828 MLS/HR Vasopressin 20 units/Sodium Chloride 100 ml @ 9 mls/hr Q11H7M IV 05/19/24 14:15 05/19/24 22:19 9 MLS/HR Dopamine HCl/ Dextrose 250 ml @ 4.478 mls/ hr Q24H IV 05/19/24 14:15 05/19/24 14:22 4.478 MLS/HR Metoclopramide HCl 5 mg Q8HPRN PRN IV 05/19/24 15:15 05/20/24 06:29 5 MG Examination: GENERAL:Normal, LUNGS:Normal, CVS:Abnormal, ABDOMEN:Normal laboratory and microbiology Laboratory Tests 05/20/24 03:12 Test 05/20/24 03:12 Range/Units Serum Glucose 275 H 74-106 mg/dL Problem List/Assessment/Plan Problem List/Assessment/Plan 1) NSTEMI 2) Cardiogenic shock 3) LAUREN on CKD 4) HFrEF, EF 15%, NYHA IV 5) CAD s/p previous PCIs 6) HTN 7) DM 2 plan; this AM patient is on dopamine, levophed and vasopressin with SBP in the mid 80s, on amio gtt as per protocol, renal function slightly worsening and patient is on bumex iv bid, i had a discussion with the son florecita again yesterday given the fact that now she is on 3 pressors plus the amio gtt with her condition worsening, i explained to him DNR status however he was not ready to make a decision regarding DNR status and stated he would discuss it with the rest of the family, the patient has a HIGH RISK for cardiac event (i.e cardiac arrest, fatal arrhythmia), she remains a full code and will continue care, daily labs, cardio on board and has recommended hospice eval for the patient however family not ready to make that decision based on my conversation with the eldest son florecita, automation consultant input appreciated, will follow along Plan discussed with: Other (n) DAVID MORALES MD May 20, 2024 06:50
[2024-05-20] MEDS: PHENYLEPHRINE INJ 80 MG in SODIUM CHL 0.9% 242 ML IV SCH (08:00)
--- NOTE | 2024-05-20 10:03 | DVHPN2 ---
Progress Note - Dictate Date Seen: May 20, 2024 Has the PT tested + for MRSA If YES, has PT been informed?: Yes Medical Necessity Reason Pt with a Central, PICC or Fol: Yes The following are medically ne: Central Line, Rivera Catheter Reason for rivera catheter: Strict I&O vital signs Vital Sign Date Time Temp Pulse Resp B/P (MAP) Pulse Ox O2 Delivery O2 Flow Rate FiO2 05/20/24 09:30 88 05/20/24 09:30 23 92 Oxymizer 12 N/A 05/20/24 09:00 84/63 (70) 05/20/24 08:00 97.9 97.9 Total Intake and Output 05/19/24 05/19/24 05/20/24 15:00 23:00 07:00 Intake Total 184.412 ml 798.388 ml 596.6 ml Output Total 275 ml 175 ml Balance 184.412 ml 523.388 ml 421.6 ml medications Current Medications Medications Dose Ordered Sig/Karen Route Start Time Stop Time Status Last Admin Dose Admin Diagnostic Test (Pha) 1 strip Q6HR 05/16/24 06:00 05/20/24 05:44 1 STRIP Insulin Human Regular Q6HR SC 05/16/24 06:00 05/20/24 05:55 4 UNITS Dextrose 50 ml UD PRN IV 05/16/24 01:15 Nitroglycerin 0.4 mg Q5MINP PRN SL 05/16/24 01:15 Morphine Sulfate 2 mg Q30M PRN IV 05/16/24 01:15 05/18/24 21:41 2 MG Aspirin 81 mg DAILY PO 05/16/24 10:00 05/20/24 09:09 81 MG Clopidogrel Bisulfate 75 mg DAILY PO 05/16/24 10:00 05/20/24 09:10 75 MG Sacubitril/ Valsartan 2 tab BID PO 05/16/24 10:00 Hold Ranolazine 500 mg BID PO 05/16/24 10:00 05/20/24 09:09 500 MG Atorvastatin Calcium 80 mg HS PO 05/16/24 22:00 05/19/24 21:32 80 MG Acetaminophen 650 mg Q6HP PRN PO 05/17/24 09:15 05/20/24 09:18 650 MG Dimethicone 40 mg QIDP PRN PO 05/17/24 09:15 05/20/24 03:03 40 MG Pantoprazole Sodium 40 mg DAILY@0600 PO 05/17/24 10:00 05/20/24 05:44 40 MG Bumetanide 2.5 mg BIDD IV 05/18/24 13:00 05/20/24 05:44 2.5 MG Norepinephrine Bitartrate 32 mg/ Sodium Chloride 250 ml @ 0.938 mls/ hr Q24H IV 05/19/24 08:15 05/20/24 02:05 13.828 MLS/HR Vasopressin 20 units/Sodium Chloride 100 ml @ 9 mls/hr Q11H7M IV 05/19/24 14:15 05/20/24 07:13 9 MLS/HR Dopamine HCl/ Dextrose 250 ml @ 4.478 mls/ hr Q24H IV 05/19/24 14:15 05/19/24 14:22 4.478 MLS/HR Metoclopramide HCl 5 mg Q8HPRN PRN IV 05/19/24 15:15 05/20/24 06:29 5 MG Phenylephrine HCl 80 mg/Sodium Chloride 250 ml @ 7.5 mls/hr Q24H IV 05/20/24 08:00 laboratory and microbiology Laboratory Tests 05/20/24 03:12 Test 05/20/24 03:12 Range/Units Serum Glucose 275 H 74-106 mg/dL Assessment/Plan Assessment/Plan Impression: Acute hypoxic respiratory failure Septic shock versus cardiogenic shock Congestive heart failure, systolic, EF 50% Status post PPM Metabolic acidosis Elevated troponin Diabetes mellitus type 2 Acute kidney injury Hyperglycemia Events: pt seen and examined pt in cardiogenic shock Remains on supplemental oxygen, 4 LPM NC Taper O2 as tolerated Increased O2 requirements dopamine levophed amiodarone drips family at bedside labs and x-rays reviewed Plan: continue supportive care Supplemental oxygen as needed Keep O2 saturation above 92%. bronchodilators prn for wheezing Cardiology recommendations appreciated. Follow up echocardiogram. Medical management DVT prophylaxis Condition: Critical Critical Care Time(min): 35 min Plan discussed with: Patient SANDY ULLOA MD May 20, 2024 10:03
--- NOTE | 2024-05-20 10:04 | DVHPN2 ---
Progress Note Date Seen: May 20, 2024 Has the PT tested + for MRSA If YES, has PT been informed?: Yes Medical Necessity Reason Pt with a Central, PICC or Fol: Yes The following are medically ne: Central Line, Rivera Catheter Reason for rivera catheter: Strict I&O Objective vital signs Vital Sign Date Time Temp Pulse Resp B/P (MAP) Pulse Ox O2 Delivery O2 Flow Rate FiO2 05/20/24 09:30 88 05/20/24 09:30 23 92 Oxymizer 12 N/A 05/20/24 09:00 84/63 (70) 05/20/24 08:00 97.9 97.9 Total Intake and Output 05/19/24 05/19/24 05/20/24 15:00 23:00 07:00 Intake Total 184.412 ml 798.388 ml 596.6 ml Output Total 275 ml 175 ml Balance 184.412 ml 523.388 ml 421.6 ml medications Current Medications Medications Dose Ordered Sig/Karen Route Start Time Stop Time Status Last Admin Dose Admin Diagnostic Test (Pha) 1 strip Q6HR 05/16/24 06:00 05/20/24 05:44 1 STRIP Insulin Human Regular Q6HR SC 05/16/24 06:00 05/20/24 05:55 4 UNITS Dextrose 50 ml UD PRN IV 05/16/24 01:15 Nitroglycerin 0.4 mg Q5MINP PRN SL 05/16/24 01:15 Morphine Sulfate 2 mg Q30M PRN IV 05/16/24 01:15 05/18/24 21:41 2 MG Aspirin 81 mg DAILY PO 05/16/24 10:00 05/20/24 09:09 81 MG Clopidogrel Bisulfate 75 mg DAILY PO 05/16/24 10:00 05/20/24 09:10 75 MG Sacubitril/ Valsartan 2 tab BID PO 05/16/24 10:00 Hold Ranolazine 500 mg BID PO 05/16/24 10:00 05/20/24 09:09 500 MG Atorvastatin Calcium 80 mg HS PO 05/16/24 22:00 05/19/24 21:32 80 MG Acetaminophen 650 mg Q6HP PRN PO 05/17/24 09:15 05/20/24 09:18 650 MG Dimethicone 40 mg QIDP PRN PO 05/17/24 09:15 05/20/24 03:03 40 MG Pantoprazole Sodium 40 mg DAILY@0600 PO 05/17/24 10:00 05/20/24 05:44 40 MG Bumetanide 2.5 mg BIDD IV 05/18/24 13:00 05/20/24 05:44 2.5 MG Norepinephrine Bitartrate 32 mg/ Sodium Chloride 250 ml @ 0.938 mls/ hr Q24H IV 05/19/24 08:15 05/20/24 02:05 13.828 MLS/HR Vasopressin 20 units/Sodium Chloride 100 ml @ 9 mls/hr Q11H7M IV 05/19/24 14:15 05/20/24 07:13 9 MLS/HR Dopamine HCl/ Dextrose 250 ml @ 4.478 mls/ hr Q24H IV 05/19/24 14:15 05/19/24 14:22 4.478 MLS/HR Metoclopramide HCl 5 mg Q8HPRN PRN IV 05/19/24 15:15 05/20/24 06:29 5 MG Phenylephrine HCl 80 mg/Sodium Chloride 250 ml @ 7.5 mls/hr Q24H IV 05/20/24 08:00 laboratory and microbiology Laboratory Tests 05/20/24 03:12 Test 05/20/24 03:12 Range/Units Serum Glucose 275 H 74-106 mg/dL Microbiology Date/Time Source Procedure Growth Status 05/18/24 09:10 Nose MRSA Screen - Final Complete 05/17/24 09:00 Urine - Catheterized Urine Culture - Final Complete SANDY ULLOA MD May 20, 2024 10:04
[2024-05-20] MEDS: HYDROcodone-ACET 10/325MG TAB PO PRN (10:55)
--- NOTE | 2024-05-20 11:45 | DVHPN2 ---
Progress Note Date Seen: May 20, 2024 Has the PT tested + for MRSA If YES, has PT been informed?: Yes Medical Necessity Reason Pt with a Central, PICC or Fol: Yes The following are medically ne: Central Line, Rivera Catheter Reason for rivera catheter: Strict I&O Subjective Patient reports: Feels worse Other Systems: pt somnolent near family on 3 pressors now on amio gtt HR 80s Objective vital signs Vital Sign Date Time Temp Pulse Resp B/P (MAP) Pulse Ox O2 Delivery O2 Flow Rate FiO2 05/20/24 09:30 88 05/20/24 09:30 23 92 Oxymizer 12 N/A 05/20/24 09:00 84/63 (70) 05/20/24 08:00 97.9 97.9 Total Intake and Output 05/19/24 05/19/24 05/20/24 15:00 23:00 07:00 Intake Total 184.412 ml 798.388 ml 596.6 ml Output Total 275 ml 175 ml Balance 184.412 ml 523.388 ml 421.6 ml medications Current Medications Medications Dose Ordered Sig/Karen Route Start Time Stop Time Status Last Admin Dose Admin Diagnostic Test (Pha) 1 strip Q6HR 05/16/24 06:00 05/20/24 05:44 1 STRIP Insulin Human Regular Q6HR SC 05/16/24 06:00 05/20/24 05:55 4 UNITS Dextrose 50 ml UD PRN IV 05/16/24 01:15 Nitroglycerin 0.4 mg Q5MINP PRN SL 05/16/24 01:15 Morphine Sulfate 2 mg Q30M PRN IV 05/16/24 01:15 05/18/24 21:41 2 MG Aspirin 81 mg DAILY PO 05/16/24 10:00 05/20/24 09:09 81 MG Clopidogrel Bisulfate 75 mg DAILY PO 05/16/24 10:00 05/20/24 09:10 75 MG Sacubitril/ Valsartan 2 tab BID PO 05/16/24 10:00 Hold Ranolazine 500 mg BID PO 05/16/24 10:00 05/20/24 09:09 500 MG Atorvastatin Calcium 80 mg HS PO 05/16/24 22:00 05/19/24 21:32 80 MG Acetaminophen 650 mg Q6HP PRN PO 05/17/24 09:15 05/20/24 09:18 650 MG Dimethicone 40 mg QIDP PRN PO 05/17/24 09:15 05/20/24 03:03 40 MG Pantoprazole Sodium 40 mg DAILY@0600 PO 05/17/24 10:00 05/20/24 05:44 40 MG Bumetanide 2.5 mg BIDD IV 05/18/24 13:00 05/20/24 05:44 2.5 MG Norepinephrine Bitartrate 32 mg/ Sodium Chloride 250 ml @ 0.938 mls/ hr Q24H IV 05/19/24 08:15 05/20/24 02:05 13.828 MLS/HR Vasopressin 20 units/Sodium Chloride 100 ml @ 9 mls/hr Q11H7M IV 05/19/24 14:15 05/20/24 07:13 9 MLS/HR Dopamine HCl/ Dextrose 250 ml @ 4.478 mls/ hr Q24H IV 05/19/24 14:15 05/19/24 14:22 4.478 MLS/HR Metoclopramide HCl 5 mg Q8HPRN PRN IV 05/19/24 15:15 05/20/24 06:29 5 MG Phenylephrine HCl 80 mg/Sodium Chloride 250 ml @ 7.5 mls/hr Q24H IV 05/20/24 08:00 Acetaminophen/ Hydrocodone Bitart 1 tab Q4HP PRN PO 05/20/24 10:30 05/20/24 10:55 1 TAB Enteral Nutritional Formula 240 ml TIDWMEALS PO 05/20/24 12:00 UNV Examination: GENERAL:Abnormal, HEENT:Abnormal, LUNGS:Abnormal, CVS:Abnormal, ABDOMEN:Abnormal laboratory and microbiology Laboratory Tests 05/20/24 03:12 Test 05/20/24 03:12 Range/Units Serum Glucose 275 H 74-106 mg/dL Microbiology Date/Time Source Procedure Growth Status 05/18/24 09:10 Nose MRSA Screen - Final Complete 05/17/24 09:00 Urine - Catheterized Urine Culture - Final Complete Problem List/Assessment/Plan Problem List/Assessment/Plan nstemi end stage NYHA class IV hf cardiogenic shock ckd bowen tachycardia cont dobutamine gtt pt didnt respond to iv bumex try po metolazone cont levophed for now dc heparin unfortunately, pt doesnt appear to be invasive cath candidate consider goals of care, hospice eval, if pt declines, can consider 2nd opinion gfr is 27 and likely will worsen by tomorrow given poor uop was turned down for intervention already at [facility] spoke to pt dc dobutamine start dopamine gtt cont bumex dont hold at this time may conisder amio gtt 05/20 had long talk with family , they dont want to be DNR understand poor prognosis, needs renal consult and bicarb gtt for dropping bicarbonate , consider abg multiorgan failure- recommend hospice pt has very poor prognosis Plan discussed with: Patient, Son My Orders My Orders Orders - DANNA PEREYRA MD Procedure Category Date Status Time Sodium Chl 0.9% PHA 05/19/24 In Process (So... W/Vasopressin 14:15 Dopamine 1600mcg/Ml PHA 05/19/24 In Process D5W 14:15 Amiodarone PHA 05/19/24 In Process 360mg/200ml Premix 22:00 Abg W/ Co-Ox RT 05/20/24 Logged 11:35 *[facility] CONS 05/20/24 Transmitted [place] 11:35 Dietary Evaluation Review Comments: 1) Initiate Glucerna tid 2) Recommend BUS DRIVER/MONITOR consult for swallow evaluation 3) Continue plan of care Expected Outcomes/Goals: 1) appetite and labs to improve 2) f/u in 3-5 days Date of Service: May 20, 2024 Billing Provider: DANNA PEREYRA MD Common Visit Codes: NOT BILLABLE DANNA PEREYRA MD May 20, 2024 11:45
[2024-05-20] MEDS: Glucerna Carbsteady SHAKE Vanilla 8oz PO SCH (12:00)
[2024-05-20 12:17] LABS: Base Excess -9.8 mmol/L (-2.0-3.0)
--- NOTE | 2024-05-20 16:37 | DVHINCON2 ---
Date of service: May 20, [address] Vazquez Reason for Consultation LAUREN History of Present Illness Mrs. Leon is a 78-year-old female with known history of chronic heart failure, diabetes who was seen in the intensive care unit for evaluation of acute kidney injury. Her clinical course has been notable for worsening cardiac function, shock requiring maximal doses of multiple vasopressors, and acute kidney injury. Urine volumes have been oliguric. Patient is eldest son and another son were at bedside during my evaluation. The patient's TILE PICKER was at bedside during my evaluation. The chart was reviewed in following is a summary of my findings. Past Medical History Coronary artery disease Chronic heart failure Hypertension Diabetes Chronic kidney disease Allergies: Coded Allergies: No Known Drug Allergy (Verified Allergy, Unknown, 06/26/20) Uncoded Allergies: UNKNOWN ABX (Allergy, Unknown, 12/27/17) Home Meds Reported Medications Empagliflozin (Jardiance) 10 Mg Tab, 1 TAB PO QAM for 90 Days, #90 05/17/24 Sacubitril-Valsartan (Entresto 49-51 mg) 1 Tab Tab, 1 TAB PO BID for 90 Days, #180 05/17/24 Aspirin (Aspirin) 81 Mg Chw, 1 TAB PO DAILY for 90 Days, #90 05/17/24 Famotidine (Famotidine) 20 Mg Tab, 1 TAB PO BID for 90 Days, #180 05/17/24 Ranolazine (Ranolazine ER) 500 Mg Tab, 1 TAB PO BID for 90 Days, #180 25 Metoprolol Succinate (Metoprolol Succinate Er) 25 Mg Tab, 1 TAB PO DAILY for 100 Days, #100 25 Isosorbide Mononitrate (Isosorbide Mononitrate Er) 30 Mg Tab, 1 TAB PO DAILY for 100 Days, #100 25 Insulin Lispro (Insulin Lispro Kwikpen) 100 Unit/Ml Inj, UNIT SC TID for 75 Days, #15 INJECT SUBCUTANEOUSLY PER SLIDING SCALE THREE TIMES DAILY. 05/17/24 Metformin Hydrochloride (Metformin Hcl) 500 Mg Tab, 1 TAB PO BID for 90 Days, #180 05/17/24 Furosemide (Furosemide) 40 Mg Tab, 1 TAB PO DAILY for 90 Days, #90 05/17/24 Mexiletine HCl (Mexiletine Hydrochloride) 150 Mg Cap, 1 CAP PO BID for 90 Days, #180 04/04/21 Nitroglycerin (NTROSTAT SUBLINGUAL) 0.4 Mg Sl, 1 TAB SL PRN for 33 Days, #100 *MAY REPEAT EVERY 5 MINUTES X 3 TOTAL IF NO RELIEF, INITIATE ANALGESIC THERAPY. NOTIFY PHYSICIAN *Do not crush. 06/27/20 Clopidogrel Bisulfate (Plavix) 75 Mg Tab, 1 TAB PO DAILY for 90 Days 07/01/16 Atorvastatin Calcium (Lipitor) 40 Mg Tab, 1 TAB PO HS for 90 Days, #90 07/01/16 Current Medications Current Medications Medications (Trade) Dose Ordered Sig/Karen Route PRN Reason Start Time Stop Time Status Last Admin Phenylephrine HCl 80 mg/Sodium Chloride 250 ml @ 7.5 mls/hr Q24H IV 05/20/24 08:00 Acetaminophen/ Hydrocodone Bitart ([place] 10/325MG Tab) 1 tab Q4HP PRN PO MODERATE PAIN (4-6 PAIN SCALE) 05/20/24 10:30 05/20/24 10:55 Enteral Nutritional Formula (Glucerna Carbsteady SHAKE) 240 ml TIDWMEALS PO 05/20/24 12:00 Metoclopramide HCl (Reglan Injection) 5 mg Q6HPRN PRN IV NAUSEA / VOMITING 05/20/24 13:00 Family History: Alcoholism G8 FATHER FH: cirrhosis G8 FATHER (UNKNOWN ) Family history: Cardiovascular disease G8 MOTHER ([place] ) Family history: Diabetes mellitus G8 MOTHER (UNKNOWN ) Review of Systems Limited due to patient's critical status. H&P Exam Vital Signs/I&O Vital Sign Date Time Temp Pulse Resp B/P (MAP) Pulse Ox O2 Delivery O2 Flow Rate FiO2 05/20/24 16:01 97.9 76 13 99/63 (75) 92 97.9 05/20/24 15:57 Oxymizer 14 N/A Intake and Output 05/19/24 05/20/24 19:00 07:00 Intake Total 635.375 ml 992.703 ml Output Total 275 ml 175 ml Balance 360.375 ml 817.703 ml Intake Oral 200 ml 500 ml IV Total 435.375 ml 492.703 ml Output Urine Total 275 ml 175 ml Physical Exam Gen: nad, on nasal cannula heent: nc/at, mmm lungs: Occasional rhonchi cvs: no rub abd: soft, bowel sounds audible ext: + edema skin: no rash neuro: Lethargic, opens eyes to voice. Labs/Diagnostic Data Labs/Diagnostic Data Laboratory Tests Test 05/20/24 12:09 05/20/24 12:05 05/20/24 05:49 05/20/24 03:12 Range/Units POC Glucose 253 H 235 H 70-106 mg/dl Blood Gas Specimen Type Arterial Blood Gas Sample Site Left radial Blood Gas Patient Temperature 37.0 Arterial Blood Date Drawn [id number] Arterial Blood pH 7.366 7.350-7.450 Arterial Blood Partial Pressure CO2 24.9 L 32.0-45.0 mmHg Arterial Blood Partial Pressure O2 108.3 H 83.0-108.0 mmHg Arterial Blood HCO3 13.9 L 21.0-28.0 mmol/L Arterial Blood Oxygen Saturation 97.2 94.0-98.0 % Arterial Blood Base Excess -9.8 L -2.0-3.0 mmol/L Arterial Blood Oxyhemoglobin 96.9 94.0-98.0 % Arterial Blood Carboxyhemoglobin 0.3 L 0.5-1.5 % Arterial Blood Methemoglobin 0.0 0.0-1.5 % Ab Test Modified Blood Gas Total Hemoglobin 11.30 L 12.0-16.0 g/dL Blood Gas Modality Oxymizer FiO2 % 82.0 Specimen Drawn By maame louise White Blood Count 8.1 4.4-10.8 10^3/uL Red Blood Count 3.63 L 4.0-5.20 10^6/uL Hemoglobin 11.5 L 12.2-16.2 g/dL Hematocrit 35.0 L 36.0-46.0 % Mean Corpuscular Volume 96.3 80.0-100.0 fL Mean Corpuscular Hemoglobin 31.7 28.0-32.0 pg Mean Corpuscular Hemoglobin Concent 32.9 32.0-36.0 g/dL Red Cell Distribution Width 13.9 11.8-14.3 % Platelet Count 181 140-450 10^3/uL Mean Platelet Volume 9.2 6.9-10.8 fL Neutrophils (%) (Auto) 89.7 H 37.0-80.0 % Lymphocytes (%) (Auto) 5.3 L 10.0-50.0 % Monocytes (%) (Auto) 4.4 0.0-12.0 % Eosinophils (%) (Auto) 0.3 0.0-7.0 % Basophils (%) (Auto) 0.3 0.0-2.0 % Neutrophils # (Auto) 7.3 1.6-8.6 10 ^3/uL Lymphocytes # (Auto) 0.4 0.4-5.4 10 ^3/uL Monocytes # (Auto) 0.4 0-1.3 10 ^3/uL Eosinophils # (Auto) 0 0-0.8 10 ^3/uL Basophils # (Auto) 0 0-0.2 10 ^3/uL Nucleated Red Blood Cells 0.4 % Sodium Level 132 L 136-145 mmol/L Potassium Level 5.0 3.5-5.1 mmol/L Chloride Level 98 98-107 mmol/L Carbon Dioxide Level 18 L 20-31 mmol/L Anion Gap 16 H 5-15 Blood Urea Nitrogen 55 H 9-23 mg/dL Creatinine 2.69 H 0.550-1.02 mg/dL Glomerular Filtration Rate Calc 18 >90 mL/min BUN/Creatinine Ratio 20.4 H 10.0-20.0 Serum Glucose 275 H 74-106 mg/dL Calcium Level 9.1 8.7-10.4 mg/dL Test 05/20/24 02:34 05/19/24 16:47 05/19/24 11:36 05/19/24 06:03 Range/Units POC Glucose 281 H 322 H 187 H 204 H 70-106 mg/dl Test 05/19/24 03:00 05/18/24 23:56 05/18/24 22:50 05/18/24 17:38 Range/Units White Blood Count 9.4 4.4-10.8 10^3/uL Red Blood Count 3.54 L 4.0-5.20 10^6/uL Hemoglobin 11.2 L 12.2-16.2 g/dL Hematocrit 33.8 L 36.0-46.0 % Mean Corpuscular Volume 95.3 80.0-100.0 fL Mean Corpuscular Hemoglobin 31.5 28.0-32.0 pg Mean Corpuscular Hemoglobin Concent 33.0 32.0-36.0 g/dL Red Cell Distribution Width 14.1 11.8-14.3 % Platelet Count 179 140-450 10^3/uL Mean Platelet Volume 9.5 6.9-10.8 fL Neutrophils (%) (Auto) 84.4 H 37.0-80.0 % Lymphocytes (%) (Auto) 9.9 L 10.0-50.0 % Monocytes (%) (Auto) 5.4 0.0-12.0 % Eosinophils (%) (Auto) 0.1 0.0-7.0 % Basophils (%) (Auto) 0.2 0.0-2.0 % Neutrophils # (Auto) 7.9 1.6-8.6 10 ^3/uL Lymphocytes # (Auto) 0.9 0.4-5.4 10 ^3/uL Monocytes # (Auto) 0.5 0-1.3 10 ^3/uL Eosinophils # (Auto) 0 0-0.8 10 ^3/uL Basophils # (Auto) 0 0-0.2 10 ^3/uL Nucleated Red Blood Cells 0.1 % POC Glucose 229 H 181 H 70-106 mg/dl Sodium Level 131 L 136-145 mmol/L Potassium Level 4.6 3.5-5.1 mmol/L Chloride Level 99 98-107 mmol/L Carbon Dioxide Level 22 20-31 mmol/L Anion Gap 10 5-15 Blood Urea Nitrogen 49 #H 9-23 mg/dL Creatinine 2.32 H 0.550-1.02 mg/dL Glomerular Filtration Rate Calc 21 >90 mL/min BUN/Creatinine Ratio 21.1 H 10.0-20.0 Serum Glucose 280 H 74-106 mg/dL Calcium Level 8.8 8.7-10.4 mg/dL Magnesium Level 2.2 1.6-2.6 mg/dL Test 05/18/24 12:37 05/18/24 05:44 05/18/24 05:06 05/18/24 00:39 Range/Units POC Glucose 132 H 169 H 236 H 70-106 mg/dl White Blood Count 12.1 H 4.4-10.8 10^3/uL Red Blood Count 3.75 L 4.0-5.20 10^6/uL Hemoglobin 11.8 L 12.2-16.2 g/dL Hematocrit 36.4 36.0-46.0 % Mean Corpuscular Volume 96.9 80.0-100.0 fL Mean Corpuscular Hemoglobin 31.4 28.0-32.0 pg Mean Corpuscular Hemoglobin Concent 32.4 32.0-36.0 g/dL Red Cell Distribution Width 14.1 11.8-14.3 % Platelet Count 177 140-450 10^3/uL Mean Platelet Volume 9.1 6.9-10.8 fL Neutrophils (%) (Auto) 81.2 H 37.0-80.0 % Lymphocytes (%) (Auto) 11.3 10.0-50.0 % Monocytes (%) (Auto) 7.0 0.0-12.0 % Eosinophils (%) (Auto) 0.1 0.0-7.0 % Basophils (%) (Auto) 0.4 0.0-2.0 % Neutrophils # (Auto) 9.8 H 1.6-8.6 10 ^3/uL Lymphocytes # (Auto) 1.4 0.4-5.4 10 ^3/uL Monocytes # (Auto) 0.8 0-1.3 10 ^3/uL Eosinophils # (Auto) 0 0-0.8 10 ^3/uL Basophils # (Auto) 0 0-0.2 10 ^3/uL Nucleated Red Blood Cells 0.1 % Prothrombin Time 14.6 H 9.3-11.8 sec Prothrombin Time INR 1.43 H 0.9-1.15 Activated Partial Thromboplast Time 50.5 H 24.5-34.5 SEC Sodium Level 134 #L 136-145 mmol/L Potassium Level 4.8 3.5-5.1 mmol/L Chloride Level 102 98-107 mmol/L Carbon Dioxide Level 19 L 20-31 mmol/L Anion Gap 13 5-15 Blood Urea Nitrogen 37 H 9-23 mg/dL Creatinine 2.46 H 0.550-1.02 mg/dL Glomerular Filtration Rate Calc 20 >90 mL/min BUN/Creatinine Ratio 15.0 10.0-20.0 Serum Glucose 180 H 74-106 mg/dL Calcium Level 9.4 8.7-10.4 mg/dL Test 05/17/24 22:00 05/17/24 18:17 05/17/24 16:08 05/17/24 12:24 Range/Units Prothrombin Time 14.0 H 13.3 H 9.3-11.8 sec Prothrombin Time INR 1.36 H 1.29 H 0.9-1.15 Activated Partial Thromboplast Time 56.0 H 54.7 H 24.5-34.5 SEC POC Glucose 258 H 197 H 70-106 mg/dl Test 05/17/24 12:04 05/17/24 09:52 05/17/24 09:00 05/17/24 06:26 Range/Units POC Glucose 191 H 70-106 mg/dl Prothrombin Time 12.8 H 9.3-11.8 sec Prothrombin Time INR 1.23 H 0.9-1.15 Activated Partial Thromboplast Time 49.3 H 24.5-34.5 SEC Urine Color Yellow Yellow Urine Clarity Clear Clear Urine pH 5.0 5.0-9.0 Urine Specific [place] 1.020 1.001-1.035 Urine Protein Negative Negative Urine Ketones Negative Negative Urine Blood Negative Negative /uL Urine Nitrite Negative Negative Urine Bilirubin Negative Negative Urine Urobilinogen Normal Negative mg/dL Urine Leukocyte Esterase Negative Negative /uL Urine RBC 1 0 - 4 /hpf Urine Microscopic WBC 1 0-5 /HPF Urine Squamous Epithelial Cells Few <5 /hpf Urine Bacteria None seen None Seen /hpf Urine Hyaline Casts Few 0 - 2 /lpf Urine Mucus Few None Seen Urine Glucose 4+ H Normal mg/dL White Blood Count 12.8 #H 4.4-10.8 10^3/uL Red Blood Count 3.76 L 4.0-5.20 10^6/uL Hemoglobin 11.7 L 12.2-16.2 g/dL Hematocrit 36.7 36.0-46.0 % Mean Corpuscular Volume 97.4 80.0-100.0 fL Mean Corpuscular Hemoglobin 31.1 28.0-32.0 pg Mean Corpuscular Hemoglobin Concent 32.0 32.0-36.0 g/dL Red Cell Distribution Width 14.3 11.8-14.3 % Platelet Count 195 140-450 10^3/uL Mean Platelet Volume 9.8 6.9-10.8 fL Neutrophils (%) (Auto) 79.4 37.0-80.0 % Lymphocytes (%) (Auto) 10.6 10.0-50.0 % Monocytes (%) (Auto) 9.5 0.0-12.0 % Eosinophils (%) (Auto) 0.0 0.0-7.0 % Basophils (%) (Auto) 0.5 0.0-2.0 % Neutrophils # (Auto) 10.2 H 1.6-8.6 10 ^3/uL Lymphocytes # (Auto) 1.4 0.4-5.4 10 ^3/uL Monocytes # (Auto) 1.2 0-1.3 10 ^3/uL Eosinophils # (Auto) 0 0-0.8 10 ^3/uL Basophils # (Auto) 0.1 0-0.2 10 ^3/uL Nucleated Red Blood Cells 0.1 % Sodium Level 139 136-145 mmol/L Potassium Level 3.9 3.5-5.1 mmol/L Chloride Level 106 98-107 mmol/L Carbon Dioxide Level 20 20-31 mmol/L Anion Gap 13 5-15 Blood Urea Nitrogen 34 H 9-23 mg/dL Creatinine 1.92 H 0.550-1.02 mg/dL Glomerular Filtration Rate Calc 27 >90 mL/min BUN/Creatinine Ratio 17.7 10.0-20.0 Serum Glucose 214 H 74-106 mg/dL Calcium Level 9.0 8.7-10.4 mg/dL Hepatitis B Surface Antigen Negative Negative Hepatitis C Antibody Negative Negative Test 05/17/24 02:07 05/17/24 00:36 05/16/24 18:20 05/16/24 18:14 Range/Units Prothrombin Time 12.4 H 11.4 9.3-11.8 sec Prothrombin Time INR 1.19 H 1.08 0.9-1.15 Activated Partial Thromboplast Time > 139.0 *H 24.6 24.5-34.5 SEC POC Glucose 206 H 129 H 70-106 mg/dl Test 05/16/24 12:56 05/16/24 12:08 05/16/24 10:46 05/16/24 08:41 Range/Units Troponin I High Sensitivity 6123 *H 4403 *H </=34 ng/L POC Glucose 133 H 192 H 70-106 mg/dl Magnesium Level 2.2 1.6-2.6 mg/dL Triglycerides Level 125 < 150 mg/dL Cholesterol Level 128 < 200 mg/dL LDL Cholesterol 57 < 100 mg/dL HDL Cholesterol 59 40-59 mg/dL Thyroid Stimulating Hormone (TSH) 1.11 0.55-4.78 uIU/mL Test 05/16/24 07:36 05/16/24 07:10 05/16/24 05:57 05/16/24 05:36 Range/Units Sodium Level 140 136-145 mmol/L Potassium Level 4.3 3.5-5.1 mmol/L Chloride Level 102 98-107 mmol/L Carbon Dioxide Level 23 20-31 mmol/L Anion Gap 15 5-15 Blood Urea Nitrogen 28 H 9-23 mg/dL Creatinine 1.55 H 0.550-1.02 mg/dL Glomerular Filtration Rate Calc 35 >90 mL/min BUN/Creatinine Ratio 18.1 10.0-20.0 Serum Glucose 238 H 74-106 mg/dL Calcium Level 10.2 8.7-10.4 mg/dL Troponin I High Sensitivity 2398 *H </=34 ng/L Blood Gas Specimen Type Arterial Blood Gas Sample Site Right brachial Blood Gas Patient Temperature 37.0 Arterial Blood Date Drawn [id number] Arterial Blood pH 7.362 7.350-7.450 Arterial Blood Partial Pressure CO2 31.5 L 32.0-45.0 mmHg Arterial Blood Partial Pressure O2 72.4 L 83.0-108.0 mmHg Arterial Blood HCO3 17.5 L 21.0-28.0 mmol/L Arterial Blood Oxygen Saturation 93.2 L 94.0-98.0 % Arterial Blood Base Excess -6.9 L -2.0-3.0 mmol/L Arterial Blood Oxyhemoglobin 92.2 L 94.0-98.0 % Arterial Blood Carboxyhemoglobin 0.6 0.5-1.5 % Arterial Blood Methemoglobin 0.5 0.0-1.5 % Ab Test N/a Blood Gas Total Hemoglobin 12.20 12.0-16.0 g/dL Blood Gas Modality Room air FiO2 % 21.0 White Blood Count 9.3 4.4-10.8 10^3/uL Red Blood Count 3.88 L 4.0-5.20 10^6/uL Hemoglobin 12.2 12.2-16.2 g/dL Hematocrit 37.6 36.0-46.0 % Mean Corpuscular Volume 96.9 80.0-100.0 fL Mean Corpuscular Hemoglobin 31.5 28.0-32.0 pg Mean Corpuscular Hemoglobin Concent 32.5 32.0-36.0 g/dL Red Cell Distribution Width 14.0 11.8-14.3 % Platelet Count 217 140-450 10^3/uL Mean Platelet Volume 9.0 6.9-10.8 fL Neutrophils (%) (Auto) 85.1 H 37.0-80.0 % Lymphocytes (%) (Auto) 10.0 10.0-50.0 % Monocytes (%) (Auto) 4.2 0.0-12.0 % Eosinophils (%) (Auto) 0.1 0.0-7.0 % Basophils (%) (Auto) 0.6 0.0-2.0 % Neutrophils # (Auto) 7.9 1.6-8.6 10 ^3/uL Lymphocytes # (Auto) 0.9 0.4-5.4 10 ^3/uL Monocytes # (Auto) 0.4 0-1.3 10 ^3/uL Eosinophils # (Auto) 0 0-0.8 10 ^3/uL Basophils # (Auto) 0.1 0-0.2 10 ^3/uL Nucleated Red Blood Cells 0.3 % Prothrombin Time 11.6 9.3-11.8 sec Prothrombin Time INR 1.11 0.9-1.15 Activated Partial Thromboplast Time 86.3 *H 24.5-34.5 SEC Hemoglobin A1c 7.2 H <5.7 % A1C POC Glucose 252 H 70-106 mg/dl Test 05/15/24 23:55 05/15/24 21:32 05/15/24 20:46 Range/Units Troponin I High Sensitivity 848 *H 778 *H 679 *H </=34 ng/L White Blood Count 8.1 4.4-10.8 10^3/uL Red Blood Count 3.87 L 4.0-5.20 10^6/uL Hemoglobin 11.9 L 12.2-16.2 g/dL Hematocrit 37.1 36.0-46.0 % Mean Corpuscular Volume 95.9 80.0-100.0 fL Mean Corpuscular Hemoglobin 30.8 28.0-32.0 pg Mean Corpuscular Hemoglobin Concent 32.1 32.0-36.0 g/dL Red Cell Distribution Width 13.7 11.8-14.3 % Platelet Count 196 140-450 10^3/uL Mean Platelet Volume 8.7 6.9-10.8 fL Neutrophils (%) (Auto) 67.0 37.0-80.0 % Lymphocytes (%) (Auto) 22.6 10.0-50.0 % Monocytes (%) (Auto) 9.0 0.0-12.0 % Eosinophils (%) (Auto) 0.7 0.0-7.0 % Basophils (%) (Auto) 0.7 0.0-2.0 % Neutrophils # (Auto) 5.4 1.6-8.6 10 ^3/uL Lymphocytes # (Auto) 1.8 0.4-5.4 10 ^3/uL Monocytes # (Auto) 0.7 0-1.3 10 ^3/uL Eosinophils # (Auto) 0.1 0-0.8 10 ^3/uL Basophils # (Auto) 0.1 0-0.2 10 ^3/uL Nucleated Red Blood Cells 0.1 % Prothrombin Time 11.3 9.3-11.8 sec Prothrombin Time INR 1.07 0.9-1.15 Activated Partial Thromboplast Time 26.7 24.5-34.5 SEC D-Dimer, Quantitative 0.44 0.0-0.49 mg/L FEU Sodium Level 139 136-145 mmol/L Potassium Level 3.7 3.5-5.1 mmol/L Chloride Level 104 98-107 mmol/L Carbon Dioxide Level 24 20-31 mmol/L Anion Gap 11 5-15 Blood Urea Nitrogen 27 H 9-23 mg/dL Creatinine 1.47 H 0.550-1.02 mg/dL Glomerular Filtration Rate Calc 37 >90 mL/min BUN/Creatinine Ratio 18.4 10.0-20.0 Serum Glucose 141 H 74-106 mg/dL Calcium Level 9.9 8.7-10.4 mg/dL Total Bilirubin 0.3 0.2-1.0 mg/dL Aspartate Amino Transferase (AST) 18 13-40 U/L Alanine Aminotransferase (ALT) 18 7-40 U/L Alkaline Phosphatase 69 46-116 U/L B-Type Natriuretic Peptide 1814.05 0-100 pg/mL Total Protein 7.1 5.7-8.2 g/dL Albumin 4.6 3.2-4.8 g/dL Microbiology Date/Time Source Procedure Growth Status 05/18/24 09:10 Nose MRSA Screen - Final Complete 05/17/24 09:00 Urine - Catheterized Urine Culture - Final Complete Assessment IMP: 1) Hemodynamically mediated LAUREN/VMN in the setting of cardiogenic shock, multiorgan failure 2) CKD IIIb? 3) End stage heart failure 4) NSTEMI 5) history of diabetes REC: -discussed at length with Mrs. Leon's two sons regarding current clinical state, profound hemodynamic instability and overall poor prognosis. We discussed continued risk for worsening kidney function in the setting of shock. We also discussed that due to current clinical state, she may not be a candidate for hemodialysis. Both of the sons expressed understanding and appreciation regarding discussion and they will continue to discuss with other family members regarding goals of care. We will plan for IV bicarbonate infusion, serial chemistry panels. Thank you for the consultation, we will continue to follow Mrs. Leon closely along with you. Plan discussed with: CAMMIE Ortiz MD May 20, 2024 16:37
[2024-05-20] MEDS: SODIUM BICARB 50mEq/50ml Vial 150 ML in D5W 5% 1,000 ML IV SCH (17:42)
[2024-05-20] MEDS: METOCLOPRAMIDE HCL 5MG/ml INJ 2ml VIAL IV PRN (19:18)
[2024-05-21] VITALS (90 sets, daily range): BP systolic 49–128; BP diastolic 17–94; PULSE 76–103; RESP 12–32; TEMP 97.9–98.6; O2SAT 42–100
[2024-05-21] MEDS: SODIUM BICARB 8.4% 50Meq/50ml SYR Vial IV ONE ×2 (04:27→10:34)
[2024-05-21 04:31] LABS: Basophils # (auto) 0 10 ^3/uL (0-0.2); Basophils % (auto) 0.3 % (0.0-2.0); Eosinophils # (auto) 0 10 ^3/uL (0-0.8); Eosinophils % (auto) 0.3 % (0.0-7.0); Hematocrit 35.8 % (36.0-46.0); Hemoglobin 11.4 g/dL (12.2-16.2); Lymphocytes # (auto) 0.4 10 ^3/uL (0.4-5.4); Lymphocytes % (auto) 2.8 % (10.0-50.0); Mean Corpuscular Hemoglobin 30.8 pg (28.0-32.0); Mean Corpuscular Hgb Conc. 31.8 g/dL (32.0-36.0); Mean Corpuscular Volume 96.9 fL (80.0-100.0); Monocytes # (auto) 1.1 10 ^3/uL (0-1.3); Monocytes % (auto) 8.2 % (0.0-12.0); Neutrophils # (auto) 11.5 10 ^3/uL (1.6-8.6); Neutrophils % (auto) 88.4 % (37.0-80.0); Nucleated Red Blood Cells % 1.1 %; Platelet Count (auto) 118 10^3/uL (140-450); Red Blood Cells 3.69 10^6/uL (4.0-5.20)
[2024-05-21 05:01] LABS: Anion Gap 20 (5-15)
[2024-05-21 05:06] LABS: BUN/Creatinine Ratio 19.3 (10.0-20.0)
[2024-05-21 05:12] LABS: Blood Urea Nitrogen 60 mg/dL (9-23); Carbon Dioxide 15 mmol/L (20-31); Chloride 94 mmol/L (98-107); Glucose 271 mg/dL (74-106); Sodium 129 mmol/L (136-145)
[2024-05-21 05:13] LABS: Potassium 5.8 mmol/L (3.5-5.1)
[2024-05-21] MEDS: InsuLIN REG 1unit/0.01ml Soln (100units/ml) IV ONE (06:00)
[2024-05-21] MEDS: DEXTROSE (50%) 50ML SYRG IV ONE (06:00)
[2024-05-21] MEDS: EPINEPHrine HCL 250 ML IV SCH (06:06)
[2024-05-21] MEDS: SODIUM ZIRCONIUM CYCL 10 GM PAK PO ONE (06:26)
[2024-05-21] MEDS: SODIUM BICARB 8.4% 50Meq/50ml SYR INJ IV ONE (06:27)
[2024-05-21] MEDS: ALBUTEROL SULF 2.5 MG/0.5ML(0.5%) NEB SOLN NEB ONE (06:28)
[2024-05-21] MEDS: DEXTROSE 10% 1,000 ML IV ONE (06:42)
--- NOTE | 2024-05-21 06:59 | DVHPN2 ---
Progress Note Date Seen: May 21, 2024 Has the PT tested + for MRSA If YES, has PT been informed?: Yes Medical Necessity Reason Pt with a Central, PICC or Fol: Yes The following are medically ne: Central Line, Rivera Catheter Reason for rivera catheter: Strict I&O Subjective Patient reports: Other Review of Systems: HEENT:Normal, CVS:Abnormal, RESPIRATORY:Abnormal Objective vital signs Vital Sign Date Time Temp Pulse Resp B/P (MAP) Pulse Ox O2 Delivery O2 Flow Rate FiO2 05/21/24 06:30 89/30 05/21/24 06:25 82 14 97 05/21/24 06:25 Oxymizer 12 N/A 05/21/24 00:00 98.6 98.6 Total Intake and Output 05/20/24 05/20/24 05/21/24 15:00 23:00 07:00 Intake Total 444.190 ml 1483.511 ml 726.90 ml Output Total 200 ml Balance 444.190 ml 1283.511 ml 726.90 ml medications Current Medications Medications Dose Ordered Sig/Karen Route Start Time Stop Time Status Last Admin Dose Admin Diagnostic Test (Pha) 1 strip Q6HR 05/16/24 06:00 05/21/24 05:54 1 STRIP Insulin Human Regular Q6HR SC 05/16/24 06:00 05/21/24 05:57 6 UNITS Dextrose 50 ml UD PRN IV 05/16/24 01:15 Nitroglycerin 0.4 mg Q5MINP PRN SL 05/16/24 01:15 Morphine Sulfate 2 mg Q30M PRN IV 05/16/24 01:15 05/18/24 21:41 2 MG Aspirin 81 mg DAILY PO 05/16/24 10:00 05/20/24 09:09 81 MG Clopidogrel Bisulfate 75 mg DAILY PO 05/16/24 10:00 05/20/24 09:10 75 MG Sacubitril/ Valsartan 2 tab BID PO 05/16/24 10:00 Hold Ranolazine 500 mg BID PO 05/16/24 10:00 05/20/24 22:51 500 MG Atorvastatin Calcium 80 mg HS PO 05/16/24 22:00 05/20/24 22:51 80 MG Acetaminophen 650 mg Q6HP PRN PO 05/17/24 09:15 05/20/24 09:18 650 MG Dimethicone 40 mg QIDP PRN PO 05/17/24 09:15 05/20/24 03:03 40 MG Pantoprazole Sodium 40 mg DAILY@0600 PO 05/17/24 10:00 05/21/24 05:58 40 MG Bumetanide 2.5 mg BIDD IV 05/18/24 13:00 05/20/24 18:01 2.5 MG Norepinephrine Bitartrate 32 mg/ Sodium Chloride 250 ml @ 0.938 mls/ hr Q24H IV 05/19/24 08:15 05/20/24 17:42 14.063 MLS/HR Vasopressin 20 units/Sodium Chloride 100 ml @ 9 mls/hr Q11H7M IV 05/19/24 14:15 05/21/24 04:06 9 MLS/HR Dopamine HCl/ Dextrose 250 ml @ 4.478 mls/ hr Q24H IV 05/19/24 14:15 05/19/24 14:22 4.478 MLS/HR Phenylephrine HCl 80 mg/Sodium Chloride 250 ml @ 7.5 mls/hr Q24H IV 05/20/24 08:00 05/21/24 04:06 30.938 MLS/HR Acetaminophen/ Hydrocodone Bitart 1 tab Q4HP PRN PO 05/20/24 10:30 05/20/24 23:01 1 TAB Enteral Nutritional Formula 240 ml TIDWMEALS PO 05/20/24 12:00 05/20/24 18:00 240 ML Metoclopramide HCl 5 mg Q6HPRN PRN IV 05/20/24 13:00 05/21/24 02:14 5 MG Sodium Bicarbonate 150 ml/Dextrose 1,150 ml @ 100 mls/hr [id number] IV 05/20/24 16:45 05/21/24 04:27 100 MLS/HR Epinephrine HCl 250 ml @ 7.5 mls/hr Q24H IV 05/20/24 22:00 05/21/24 06:06 7.5 MLS/HR Examination: GENERAL:Normal, LUNGS:Abnormal, CVS:Abnormal laboratory and microbiology Laboratory Tests 05/21/24 04:00 Test 05/21/24 04:00 Range/Units Serum Glucose 271 H 74-106 mg/dL Problem List/Assessment/Plan Problem List/Assessment/Plan 1) NSTEMI 2) Cardiogenic shock 3) LAUREN on CKD 4) HFrEF, EF 15%, NYHA IV 5) CAD s/p previous PCIs 6) HTN 7) DM 2 plan; this AM patient is on dopamine, levophed, neosynephrine, epinephrine, and vasopressin, she is on 12L oxymizer, renal function worsening with metabolic acidosis, her condition is deteriorating, multiple discussions with son regarding DNR and hospice care and he expressed understanding however was not ready to make any decision, cardio/renal/pulm on board, continue supportive care, daily labs, overall prognosis poor Plan discussed with: Other (n) Dietary Evaluation Review Comments: 1) Initiate Glucerna tid 2) Recommend SPINNER FIXER consult for swallow evaluation 3) Continue plan of care Expected Outcomes/Goals: 1) appetite and labs to improve 2) f/u in 3-5 days DAVID MORALES MD May 21, 2024 06:59
--- NOTE | 2024-05-21 09:02 | DVHPN2 ---
Progress Note - Dictate Date Seen: May 21, 2024 Has the PT tested + for MRSA If YES, has PT been informed?: Yes Medical Necessity Reason Pt with a Central, PICC or Fol: Yes The following are medically ne: Central Line, Rivera Catheter Reason for rivera catheter: Strict I&O Subjective Seen in ICU, patient responsive this morning, CONSTRUCTION ANALYST at bedside urine volumes oliguric vital signs Vital Sign Date Time Temp Pulse Resp B/P (MAP) Pulse Ox O2 Delivery O2 Flow Rate FiO2 05/21/24 06:30 89/30 05/21/24 06:25 82 14 97 05/21/24 06:25 Oxymizer 12 N/A 05/21/24 00:00 98.6 98.6 Total Intake and Output 05/20/24 05/20/24 05/21/24 15:00 23:00 07:00 Intake Total 444.190 ml 1483.511 ml 1400.20 ml Output Total 200 ml 125 ml Balance 444.190 ml 1283.511 ml 1275.20 ml medications Current Medications Medications Dose Ordered Sig/Karen Route Start Time Stop Time Status Last Admin Dose Admin Diagnostic Test (Pha) 1 strip Q6HR 05/16/24 06:00 05/21/24 05:54 1 STRIP Insulin Human Regular Q6HR SC 05/16/24 06:00 05/21/24 05:57 6 UNITS Dextrose 50 ml UD PRN IV 05/16/24 01:15 Nitroglycerin 0.4 mg Q5MINP PRN SL 05/16/24 01:15 Morphine Sulfate 2 mg Q30M PRN IV 05/16/24 01:15 05/18/24 21:41 2 MG Aspirin 81 mg DAILY PO 05/16/24 10:00 05/20/24 09:09 81 MG Clopidogrel Bisulfate 75 mg DAILY PO 05/16/24 10:00 05/20/24 09:10 75 MG Sacubitril/ Valsartan 2 tab BID PO 05/16/24 10:00 Hold Ranolazine 500 mg BID PO 05/16/24 10:00 05/20/24 22:51 500 MG Atorvastatin Calcium 80 mg HS PO 05/16/24 22:00 05/20/24 22:51 80 MG Acetaminophen 650 mg Q6HP PRN PO 05/17/24 09:15 05/20/24 09:18 650 MG Dimethicone 40 mg QIDP PRN PO 05/17/24 09:15 05/20/24 03:03 40 MG Pantoprazole Sodium 40 mg DAILY@0600 PO 05/17/24 10:00 05/21/24 05:58 40 MG Bumetanide 2.5 mg BIDD IV 05/18/24 13:00 05/20/24 18:01 2.5 MG Norepinephrine Bitartrate 32 mg/ Sodium Chloride 250 ml @ 0.938 mls/ hr Q24H IV 05/19/24 08:15 05/20/24 17:42 14.063 MLS/HR Vasopressin 20 units/Sodium Chloride 100 ml @ 9 mls/hr Q11H7M IV 05/19/24 14:15 05/21/24 04:06 9 MLS/HR Dopamine HCl/ Dextrose 250 ml @ 4.478 mls/ hr Q24H IV 05/19/24 14:15 05/19/24 14:22 4.478 MLS/HR Phenylephrine HCl 80 mg/Sodium Chloride 250 ml @ 7.5 mls/hr Q24H IV 05/20/24 08:00 05/21/24 04:06 30.938 MLS/HR Acetaminophen/ Hydrocodone Bitart 1 tab Q4HP PRN PO 05/20/24 10:30 05/20/24 23:01 1 TAB Enteral Nutritional Formula 240 ml TIDWMEALS PO 05/20/24 12:00 05/20/24 18:00 240 ML Metoclopramide HCl 5 mg Q6HPRN PRN IV 05/20/24 13:00 05/21/24 02:14 5 MG Sodium Bicarbonate 150 ml/Dextrose 1,150 ml @ 100 mls/hr [id number] IV 05/20/24 16:45 05/21/24 04:27 100 MLS/HR Epinephrine HCl 250 ml @ 7.5 mls/hr Q24H IV 05/20/24 22:00 05/21/24 06:06 7.5 MLS/HR objective Gen: nad, supine lungs: Occasional rhonchi cvs: no rub ext: no edema laboratory and microbiology Laboratory Tests 05/21/24 04:00 Test 05/21/24 04:00 Range/Units Serum Glucose 271 H 74-106 mg/dL Assessment/Plan IMP: 1) Hemodynamically mediated LAUREN/VMN in the setting of cardiogenic shock, multiorgan failure 2) CKD IIIb? 3) End stage heart failure 4) NSTEMI 5) history of diabetes 6) metabolic acidosis 7) hyperkalemia - multifactorial REC: - IV bicarbonate two ampules this morning -we will continue with bicarb drip -overall poor prognosis in current clinical state. Dietary Evaluation Review Comments: 1) Initiate Glucerna tid 2) Recommend ON AIR ANNOUNCER consult for swallow evaluation 3) Continue plan of care Expected Outcomes/Goals: 1) appetite and labs to improve 2) f/u in 3-5 days Plan discussed with: Other CAMMIE GOODMAN MD May 21, 2024 09:02
--- NOTE | 2024-05-21 09:15 | DVHPN2 ---
Progress Note Date Seen: May 21, 2024 Has the PT tested + for MRSA If YES, has PT been informed?: Yes Medical Necessity Reason Pt with a Central, PICC or Fol: Yes The following are medically ne: Central Line, Rivera Catheter Reason for rivera catheter: Strict I&O Subjective Patient reports: Feels worse Other Systems: somnolent K is high Objective vital signs Vital Sign Date Time Temp Pulse Resp B/P (MAP) Pulse Ox O2 Delivery O2 Flow Rate FiO2 05/21/24 06:30 89/30 05/21/24 06:25 82 14 97 05/21/24 06:25 Oxymizer 12 N/A 05/21/24 00:00 98.6 98.6 Total Intake and Output 05/20/24 05/20/24 05/21/24 15:00 23:00 07:00 Intake Total 444.190 ml 1483.511 ml 1400.20 ml Output Total 200 ml 125 ml Balance 444.190 ml 1283.511 ml 1275.20 ml medications Current Medications Medications Dose Ordered Sig/Karen Route Start Time Stop Time Status Last Admin Dose Admin Diagnostic Test (Pha) 1 strip Q6HR 05/16/24 06:00 05/21/24 05:54 1 STRIP Insulin Human Regular Q6HR SC 05/16/24 06:00 05/21/24 05:57 6 UNITS Dextrose 50 ml UD PRN IV 05/16/24 01:15 Nitroglycerin 0.4 mg Q5MINP PRN SL 05/16/24 01:15 Morphine Sulfate 2 mg Q30M PRN IV 05/16/24 01:15 05/18/24 21:41 2 MG Aspirin 81 mg DAILY PO 05/16/24 10:00 05/21/24 09:00 81 MG Clopidogrel Bisulfate 75 mg DAILY PO 05/16/24 10:00 05/21/24 09:00 75 MG Sacubitril/ Valsartan 2 tab BID PO 05/16/24 10:00 Hold Ranolazine 500 mg BID PO 05/16/24 10:00 05/21/24 09:00 500 MG Atorvastatin Calcium 80 mg HS PO 05/16/24 22:00 05/20/24 22:51 80 MG Acetaminophen 650 mg Q6HP PRN PO 05/17/24 09:15 05/20/24 09:18 650 MG Dimethicone 40 mg QIDP PRN PO 05/17/24 09:15 05/20/24 03:03 40 MG Pantoprazole Sodium 40 mg DAILY@0600 PO 05/17/24 10:00 05/21/24 05:58 40 MG Bumetanide 2.5 mg BIDD IV 05/18/24 13:00 05/20/24 18:01 2.5 MG Norepinephrine Bitartrate 32 mg/ Sodium Chloride 250 ml @ 0.938 mls/ hr Q24H IV 05/19/24 08:15 05/20/24 17:42 14.063 MLS/HR Vasopressin 20 units/Sodium Chloride 100 ml @ 9 mls/hr Q11H7M IV 05/19/24 14:15 05/21/24 04:06 9 MLS/HR Dopamine HCl/ Dextrose 250 ml @ 4.478 mls/ hr Q24H IV 05/19/24 14:15 05/19/24 14:22 4.478 MLS/HR Phenylephrine HCl 80 mg/Sodium Chloride 250 ml @ 7.5 mls/hr Q24H IV 05/20/24 08:00 05/21/24 04:06 30.938 MLS/HR Acetaminophen/ Hydrocodone Bitart 1 tab Q4HP PRN PO 05/20/24 10:30 05/20/24 23:01 1 TAB Enteral Nutritional Formula 240 ml TIDWMEALS PO 05/20/24 12:00 05/21/24 08:48 240 ML Metoclopramide HCl 5 mg Q6HPRN PRN IV 05/20/24 13:00 05/21/24 02:14 5 MG Sodium Bicarbonate 150 ml/Dextrose 1,150 ml @ 100 mls/hr [id number] IV 05/20/24 16:45 05/21/24 04:27 100 MLS/HR Epinephrine HCl 250 ml @ 7.5 mls/hr Q24H IV 05/20/24 22:00 05/21/24 06:06 7.5 MLS/HR Examination: GENERAL:Abnormal, HEENT:Abnormal, LUNGS:Abnormal, CVS:Abnormal, ABDOMEN:Abnormal laboratory and microbiology Laboratory Tests 05/21/24 04:00 Test 05/21/24 04:00 Range/Units Serum Glucose 271 H 74-106 mg/dL Microbiology Date/Time Source Procedure Growth Status 05/18/24 09:10 Nose MRSA Screen - Final Complete 05/17/24 09:00 Urine - Catheterized Urine Culture - Final Complete Problem List/Assessment/Plan Problem List/Assessment/Plan nstemi end stage NYHA class IV hf cardiogenic shock ckd bowen tachycardia cont dobutamine gtt pt didnt respond to iv bumex try po metolazone cont levophed for now dc heparin unfortunately, pt doesnt appear to be invasive cath candidate consider goals of care, hospice eval, if pt declines, can consider 2nd opinion gfr is 27 and likely will worsen by tomorrow given poor uop was turned down for intervention already at [facility] spoke to pt dc dobutamine start dopamine gtt cont bumex dont hold at this time august conisder amio gtt 05/20 had long talk with family , they dont want to be DNR understand poor prognosis, needs renal consult and bicarb gtt for dropping bicarbonate , consider abg multiorgan failure- pt on 4+pressors at limits of our care high likelihood of decompensation and pt remains full code recommend hospice pt has very poor prognosis Plan discussed with: Other (rn) My Orders My Orders Orders - DANNA PEREYRA MD Procedure Category Date Status Time Abg W/ Co-Ox RT 05/20/24 Logged 11:35 *[facility] CONS 05/20/24 Transmitted [place] 11:35 Epinephrine Hcl PHA 05/20/24 In Process 22:00 Dietary Evaluation Review Comments: 1) Initiate Glucerna tid 2) Recommend FORM BLOCK MAKER consult for swallow evaluation 3) Continue plan of care Expected Outcomes/Goals: 1) appetite and labs to improve 2) f/u in 3-5 days Date of Service: May 21, 2024 Billing Provider: DANNA PEREYRA MD Common Visit Codes: NOT BILLABLE DANNA PEREYRA MD May 21, 2024 09:15
--- NOTE | 2024-05-21 10:48 | DVHPN2 ---
Progress Note - Dictate Date Seen: May 21, 2024 Has the PT tested + for MRSA If YES, has PT been informed?: Yes Medical Necessity Reason Pt with a Central, PICC or Fol: Yes The following are medically ne: Central Line, Rivera Catheter Reason for rivera catheter: Strict I&O vital signs Vital Sign Date Time Temp Pulse Resp B/P (MAP) Pulse Ox O2 Delivery O2 Flow Rate FiO2 05/21/24 06:30 89/30 05/21/24 06:25 82 14 97 05/21/24 06:25 Oxymizer 12 N/A 05/21/24 00:00 98.6 98.6 Total Intake and Output 05/20/24 05/20/24 05/21/24 15:00 23:00 07:00 Intake Total 444.190 ml 1483.511 ml 1400.20 ml Output Total 200 ml 125 ml Balance 444.190 ml 1283.511 ml 1275.20 ml medications Current Medications Medications Dose Ordered Sig/Karen Route Start Time Stop Time Status Last Admin Dose Admin Diagnostic Test (Pha) 1 strip Q6HR 05/16/24 06:00 05/21/24 05:54 1 STRIP Insulin Human Regular Q6HR SC 05/16/24 06:00 05/21/24 05:57 6 UNITS Dextrose 50 ml UD PRN IV 05/16/24 01:15 Nitroglycerin 0.4 mg Q5MINP PRN SL 05/16/24 01:15 Morphine Sulfate 2 mg Q30M PRN IV 05/16/24 01:15 05/18/24 21:41 2 MG Aspirin 81 mg DAILY PO 05/16/24 10:00 05/21/24 09:00 81 MG Clopidogrel Bisulfate 75 mg DAILY PO 05/16/24 10:00 05/21/24 09:00 75 MG Sacubitril/ Valsartan 2 tab BID PO 05/16/24 10:00 Hold Ranolazine 500 mg BID PO 05/16/24 10:00 05/21/24 09:00 500 MG Atorvastatin Calcium 80 mg HS PO 05/16/24 22:00 05/20/24 22:51 80 MG Acetaminophen 650 mg Q6HP PRN PO 05/17/24 09:15 05/20/24 09:18 650 MG Dimethicone 40 mg QIDP PRN PO 05/17/24 09:15 05/20/24 03:03 40 MG Pantoprazole Sodium 40 mg DAILY@0600 PO 05/17/24 10:00 05/21/24 05:58 40 MG Bumetanide 2.5 mg BIDD IV 05/18/24 13:00 05/20/24 18:01 2.5 MG Norepinephrine Bitartrate 32 mg/ Sodium Chloride 250 ml @ 0.938 mls/ hr Q24H IV 05/19/24 08:15 05/20/24 17:42 14.063 MLS/HR Vasopressin 20 units/Sodium Chloride 100 ml @ 9 mls/hr Q11H7M IV 05/19/24 14:15 05/21/24 04:06 9 MLS/HR Dopamine HCl/ Dextrose 250 ml @ 4.478 mls/ hr Q24H IV 05/19/24 14:15 05/19/24 14:22 4.478 MLS/HR Phenylephrine HCl 80 mg/Sodium Chloride 250 ml @ 7.5 mls/hr Q24H IV 05/20/24 08:00 05/21/24 04:06 30.938 MLS/HR Acetaminophen/ Hydrocodone Bitart 1 tab Q4HP PRN PO 05/20/24 10:30 05/21/24 10:19 1 TAB Enteral Nutritional Formula 240 ml TIDWMEALS PO 05/20/24 12:00 05/21/24 08:48 240 ML Metoclopramide HCl 5 mg Q6HPRN PRN IV 05/20/24 13:00 05/21/24 02:14 5 MG Sodium Bicarbonate 150 ml/Dextrose 1,150 ml @ 100 mls/hr [id number] IV 05/20/24 16:45 05/21/24 04:27 100 MLS/HR Epinephrine HCl 250 ml @ 7.5 mls/hr Q24H IV 05/20/24 22:00 05/21/24 06:06 7.5 MLS/HR laboratory and microbiology Laboratory Tests 05/21/24 04:00 Test 05/21/24 04:00 Range/Units Serum Glucose 271 H 74-106 mg/dL Assessment/Plan Assessment/Plan Impression: Acute hypoxic respiratory failure Septic shock versus cardiogenic shock Congestive heart failure, systolic, EF 50% Status post PPM Metabolic acidosis Elevated troponin Diabetes mellitus type 2 Acute kidney injury Hyperglycemia Events: pt seen and examined no events NSTEMI pt in cardiogenic shock medical management Remains on supplemental oxygen Taper O2 as tolerated Increased O2 requirements dopamine levophed amiodarone drips family at bedside labs and x-rays reviewed Plan: continue supportive care Supplemental oxygen as needed Keep O2 saturation above 92%. bronchodilators prn for wheezing Cardiology recommendations appreciated. Follow up echocardiogram. Medical management DVT prophylaxis Condition: Critical Critical Care Time(min): 35 min Dietary Evaluation Review Comments: 1) Initiate Glucerna tid 2) Recommend FARM OPERATOR consult for swallow evaluation 3) Continue plan of care Expected Outcomes/Goals: 1) appetite and labs to improve 2) f/u in 3-5 days Plan discussed with: Patient SANDY ULLOA MD May 21, 2024 10:48
[2024-05-21] MEDS: MORPHINE SULFATE INJ 2 MG/ml SYRG IV PRN (15:55)
[2024-05-22] VITALS (9 sets, daily range): BP systolic 64–120; BP diastolic 24–77; PULSE 60–88; RESP 9–26; TEMP 98; O2SAT 52–89
--- NOTE | 2024-05-22 06:24 | DVHPN2 ---
Progress Note Date Seen: May 22, 2024 Has the PT tested + for MRSA If YES, has PT been informed?: Yes Medical Necessity Reason Pt with a Central, PICC or Fol: Yes The following are medically ne: Central Line, Rivera Catheter Reason for rivera catheter: Strict I&O Subjective Review of Systems: CVS:Abnormal, RESPIRATORY:Abnormal Objective vital signs Vital Sign Date Time Temp Pulse Resp B/P (MAP) Pulse Ox O2 Delivery O2 Flow Rate FiO2 05/22/24 02:00 60 05/22/24 02:00 15 89 Oxymizer 15 N/A 05/22/24 02:00 103/61 (75) 05/22/24 00:00 98.0 98.0 Total Intake and Output 05/21/24 05/21/24 05/22/24 15:00 23:00 07:00 Intake Total 1584.83 ml 1712.080 ml 605.718 ml Output Total 40 ml Balance 1584.83 ml 1672.080 ml 605.718 ml medications Current Medications Medications Dose Ordered Sig/Karen Route Start Time Stop Time Status Last Admin Dose Admin Diagnostic Test (Pha) 1 strip Q6HR 05/16/24 06:00 05/21/24 23:49 1 STRIP Insulin Human Regular Q6HR SC 05/16/24 06:00 05/21/24 18:42 2 UNITS Dextrose 50 ml UD PRN IV 05/16/24 01:15 Nitroglycerin 0.4 mg Q5MINP PRN SL 05/16/24 01:15 Morphine Sulfate 2 mg Q30M PRN IV 05/16/24 01:15 05/18/24 21:41 2 MG Aspirin 81 mg DAILY PO 05/16/24 10:00 05/21/24 09:00 81 MG Clopidogrel Bisulfate 75 mg DAILY PO 05/16/24 10:00 05/21/24 09:00 75 MG Sacubitril/ Valsartan 2 tab BID PO 05/16/24 10:00 Hold Ranolazine 500 mg BID PO 05/16/24 10:00 05/21/24 21:12 500 MG Atorvastatin Calcium 80 mg HS PO 05/16/24 22:00 05/21/24 21:12 80 MG Acetaminophen 650 mg Q6HP PRN PO 05/17/24 09:15 05/20/24 09:18 650 MG Dimethicone 40 mg QIDP PRN PO 05/17/24 09:15 05/21/24 23:49 40 MG Pantoprazole Sodium 40 mg DAILY@0600 PO 05/17/24 10:00 05/21/24 05:58 40 MG Bumetanide 2.5 mg BIDD IV 05/18/24 13:00 05/21/24 18:23 2.5 MG Norepinephrine Bitartrate 32 mg/ Sodium Chloride 250 ml @ 0.938 mls/ hr Q24H IV 05/19/24 08:15 05/21/24 12:11 14.063 MLS/HR Vasopressin 20 units/Sodium Chloride 100 ml @ 9 mls/hr Q11H7M IV 05/19/24 14:15 05/21/24 15:53 9 MLS/HR Dopamine HCl/ Dextrose 250 ml @ 4.478 mls/ hr Q24H IV 05/19/24 14:15 05/21/24 19:13 13.433 MLS/HR Phenylephrine HCl 80 mg/Sodium Chloride 250 ml @ 7.5 mls/hr Q24H IV 05/20/24 08:00 05/21/24 19:14 33.75 MLS/HR Acetaminophen/ Hydrocodone Bitart 1 tab Q4HP PRN PO 05/20/24 10:30 05/21/24 21:13 1 TAB Enteral Nutritional Formula 240 ml TIDWMEALS PO 05/20/24 12:00 05/21/24 18:10 240 ML Metoclopramide HCl 5 mg Q6HPRN PRN IV 05/20/24 13:00 05/21/24 22:34 5 MG Sodium Bicarbonate 150 ml/Dextrose 1,150 ml @ 100 mls/hr [id number] IV 05/20/24 16:45 05/21/24 15:45 100 MLS/HR Epinephrine HCl 250 ml @ 7.5 mls/hr Q24H IV 05/20/24 22:00 05/22/24 01:15 15 MLS/HR Morphine Sulfate 2 mg Q4HPRN PRN IV 05/21/24 15:15 05/21/24 15:55 2 MG Examination: HEENT:Normal, LUNGS:Abnormal, CVS:Abnormal, ABDOMEN:Normal laboratory and microbiology Laboratory Tests 05/21/24 11:20 05/21/24 04:00 Test 05/21/24 04:00 Range/Units Serum Glucose 271 H 74-106 mg/dL Problem List/Assessment/Plan Problem List/Assessment/Plan 1) NSTEMI 2) Cardiogenic shock 3) LAUREN on CKD 4) HFrEF, EF 15%, NYHA IV 5) CAD s/p previous PCIs 6) HTN 7) DM 2 plan; this AM patient is on dopamine, levophed, neosynephrine, epinephrine, and vasopressin, she is on 15L oxymizer, labs for this AM pending, her condition is deteriorating now requiring 5 pressors, had a discussion with son Manpreet yesterday and he and family decided to make the patient a DNR thus that was filed in the chart, cardio/renal/pulm on board, continue supportive care, daily labs, overall prognosis poor Plan discussed with: Other (n) Dietary Evaluation Review Comments: 1) Initiate Glucerna tid 2) Recommend CONVEYOR WEIGHER OPERATOR consult for swallow evaluation 3) Continue plan of care Expected Outcomes/Goals: 1) appetite and labs to improve 2) f/u in 3-5 days DAVID MORALES MD May 22, 2024 06:23
--- NOTE | 2024-05-22 06:59 | DVHDS2 ---
New Physician D'charge PN Admitting Diagnosis Admitting Diagnosis chf Discharge Diagnosis end stage cardiomuopathy, EF 15% NYHA IV CHF LAUREN metabolic acidosis respiratory failure Operations or Procedures none Reason(s) For Hospitalization Surgery Hospital Course 78 F who comes to ER for SOB progressively worsening. She was admitted for CHF and noted to have EF 15% on echo, she was evaluated at an outside hospital for CABG however but was turned down due to not being a candidate. Here in the hospital she was seen by cardio and eventually required 5 pressors for BP support. Her renal function worsened and she became acidotic. Her respiratory status declined and she was on 15L o2 oxymizer. She was recommended for hospice eval by cardio and multiple discussions were had with family however they decided on DNR status and eventually the patient went into agonal breathing and followed by cardiac arrest. I was informed by the nurse the following morning the patient at 0217 on 05/22/24. Family has been informed. Treatment Plan Discharge Condition of Discharge Poor Disposition at Hospital Discharge Instructions Diet: See Comment Activity: Medications: Follow Up Care Discharge Statement: "Patient was advised to return to the ER or call 911 if any headaches, dizziness, shortness of breath, chest pain, abdominal pain, bleeding, fevers, or worsening of medical condition. Patient was counseled about treatment plan, medications, possible side effects, patientverbalized understanding. All questions were answered to the best of my ability. This discharge took greater then 30 minutes in planning, reviewing documentation, counseling the patient, and discussing with other team members." DAVID MORALES MD May 22, 2024 06:59
== END 2024-05-22 02:17 ==
LOC: ER 20:21 → TELE 05-16 01:09 → OVERFLOW 05-16 16:23 → ICU WEST 05-18 08:12
PROVIDERS: ADMIT Student in an Organized Health Care Education/Training Program; ATTEND Student in an Organized Health Care Education/Training Program
PROC: 02HV33Z Insertion of Infusion Device into Superior Vena Cava, Percutaneous Approach (ICD-10-PCS; principal; 2024-05-16)
PROC: B548ZZA Ultrasonography of Superior Vena Cava, Guidance (ICD-10-PCS; 2024-05-16)
DX: I21.4 Non-ST elevation (NSTEMI) myocardial infarction (principal); J96.01 Acute respiratory failure with hypoxia; N17.0 Acute kidney failure with tubular necrosis; I50.22 Chronic systolic (congestive) heart failure; E87.20 Acidosis, unspecified; I13.0 Hypertensive heart and chronic kidney disease with heart failure and stage 1 through stage 4 chronic kidney disease, or unspecified chronic kidney disease; I46.9 Cardiac arrest, cause unspecified; Z66 Do not resuscitate; R57.0 Cardiogenic shock; I25.5 Ischemic cardiomyopathy; E11.65 Type 2 diabetes mellitus with hyperglycemia; E78.5 Hyperlipidemia, unspecified; I25.10 Atherosclerotic heart disease of native coronary artery without angina pectoris; E11.22 Type 2 diabetes mellitus with diabetic chronic kidney disease; I50.84 End stage heart failure; E87.5 Hyperkalemia; N18.30 Chronic kidney disease, stage 3 unspecified; Z90.49 Acquired absence of other specified parts of digestive tract; Z79.02 Long term (current) use of antithrombotics/antiplatelets; Z79.899 Other long term (current) drug therapy; Z86.73 Personal history of transient ischemic attack (TIA), and cerebral infarction without residual deficits; Z95.0 Presence of cardiac pacemaker; Z82.49 Family history of ischemic heart disease and other diseases of the circulatory system; Z83.3 Family history of diabetes mellitus; Z95.5 Presence of coronary angioplasty implant and graft; Z79.4 Long term (current) use of insulin
CPT/HCPCS: 36415; 36556; 36600; 71045; 80048; 80053; 80061; 81001; 82805; 82962; 83036; 83735; 83880; 84132; 84443; 84484; 85025; 85379; 85610; 85730; 86803; 87081; 87086; 87340; 93005; 93306; 94640; 96365; 96375; 96376; 99291; G0378; J0171; J1815; J2405